=== PATIENT | male | born 1960 | race Asian ===

== ENCOUNTER 2018-09-04 03:02 | Inpatient (IN) | payer MEDICARE, OTHER, SELFPAY ==
[2018-08-20 09:39] VITALS: BMI 21.5
[2018-09-04] VITALS (15 sets, daily range): BP systolic 101–133; BP diastolic 60–84; PULSE 77–108; RESP 18–24; TEMP 36.8–38.7; O2SAT 95–99; BMI 21.7
--- NOTE | 2018-09-04 03:09 | PCM.HP.STD ---
History of Present Illness The patient is a 58 year old M [] Past Medical History Past Medical History (Chronic Problems): Chronic Problems (Last Reviewed 08/20/18 @ 10:33 by Magdiel Jose DO) CKD (chronic kidney disease), stage V (Chronic) Pulmonary fibrosis (Chronic) Systemic sclerosis (Chronic) Renal failure (Chronic) Raynaud disease (Chronic) Anemia (Chronic) Systemic sclerosis (Chronic) Osteoarthritis (Chronic) Hypokalemia (Chronic) HTN (hypertension) (Chronic) Generalized edema (Chronic) CKD (chronic kidney disease), stage V (Chronic) Anemia (Chronic) Alcohol abuse (Chronic) Acute renal failure syndrome (Chronic) Medical History: Medical History (Last Reviewed 08/20/18 @ 10:33 by Magdiel Jose DO) Pulmonary fibrosis (Chronic) J84.10 Systemic sclerosis (Chronic) M34.9 Renal failure (Chronic) N19 Raynaud disease (Chronic) I73.00 Anemia (Chronic) D64.9 Allergies aspirin Allergy (Verified 02/26/18 08:53) Unknown lisinopril Allergy (Verified 02/26/18 08:53) Unknown valsartan Allergy (Verified 02/26/18 08:53) Unknown Home Medications: Ambulatory Orders Medication Instructions Recorded B Complex W-C No.20/Folic Acid 1 mg PO DAILY 07/28/13 [Nephrocaps Softgel] Benzonatate [Tessalon Perle] 200 mg PO TID PRN PRN 07/28/13 Multivitamins,Therapeutic 1 tab PO DAILY 07/28/13 [Multivitamin] Sevelamer Carbonate [Renvela] 800 mg PO DAILY 07/28/13 acetaminophen 325 mg capsule 325 mg PO Q6H PRN 02/26/18 adapalene 0.3 % topical gel 1 applic TOPICAL QPM 02/26/18 albuterol sulfate HFA 90 1 puff INHALATION Q6H PRN 02/26/18 mcg/actuation aerosol inhaler diphenhydramine 25 mg capsule 25 mg PO QHS PRN 02/26/18 lidocaine 2.5 %-prilocaine 2.5% applic TOPICAL 02/26/18 and m.salicy 30 %-menth 10 % top cream pantoprazole 40 mg tablet,delayed 40 mg PO DAILY #90 tab 04/08/18 release nifedipine ER 60 mg 120 mg PO DAILY #180 tab 04/11/18 tablet,extended release guaifenesin ER 600 mg tablet, 600 mg PO Q12H 08/20/18 extended release 12 hr metoprolol tartrate 50 mg tablet 50 mg PO BID #180 tab 08/20/18 Surgical History: no surgical history Smoking Status: Former smoker - Physical Exam Body Mass Index (BMI) 21.5
--- NOTE | 2018-09-04 03:41 | PCM.HP.STD ---
Problem List (1) Community acquired pneumonia Status: Acute History of Present Illness Date of Admission: 09/04/18 Chief Complaint: chills The patient is a 58 year old M with a significant history of scleroderma; end-stage renal disease (dialysis Saturday, and Saturday); and hypertension who presented at [facility] emergency department with chills. Associated with his symptoms is productive cough of green to yellow sputum; and shortness of breath. Further he feels tired. Reportedly his lactic acid at [facility] emergency department was 4.8. Chest x-ray at [facility] emergency department showed small left effusion and/or consolidation. His white blood cell count was elevated as of 15.9. His BUN was 48 and his creatinine was 8.3. Because patient is end-stage renal disease on dialysis and he sees he requested that he come to our hospital. Past Medical History Past Medical History (Chronic Problems): Chronic Problems (Last Reviewed 09/04/18 @ 03:59 by Gio Aponte MD) CKD (chronic kidney disease), stage V (Chronic) Pulmonary fibrosis (Chronic) Systemic sclerosis (Chronic) Renal failure (Chronic) Raynaud disease (Chronic) Anemia (Chronic) Systemic sclerosis (Chronic) Osteoarthritis (Chronic) Hypokalemia (Chronic) HTN (hypertension) (Chronic) Generalized edema (Chronic) CKD (chronic kidney disease), stage V (Chronic) Anemia (Chronic) Alcohol abuse (Chronic) Acute renal failure syndrome (Chronic) Medical History: Medical History (Last Reviewed 09/04/18 @ 05:01 by Gio Aponte MD) Pulmonary fibrosis (Chronic) J84.10 Systemic sclerosis (Chronic) M34.9 Renal failure (Chronic) N19 Raynaud disease (Chronic) I73.00 Anemia (Chronic) D64.9 Allergies aspirin Allergy (Verified 09/04/18 03:33) Itching lisinopril Allergy (Verified 09/04/18 03:33) Itching valsartan Allergy (Verified 09/04/18 03:33) Itching Home Medications: Ambulatory Orders Medication Instructions Recorded Benzonatate [Tessalon Perle] 100 mg PO TID PRN PRN 07/28/13 Sevelamer Carbonate [Renvela] 1,600 mg PO TID 07/28/13 acetaminophen 325 mg capsule 650 mg PO Q6H PRN 08/29/18 adapalene 0.3 % topical gel 1 applic TOPICAL QPM 02/26/18 albuterol sulfate HFA 90 1 puff INHALATION Q6H PRN 02/26/18 mcg/actuation aerosol inhaler nifedipine ER 60 mg 120 mg PO DAILY #180 tab 04/11/18 tablet,extended release Folic Acid/Vit B Complex and C 1 tab PO DAILY 09/04/18 [Renal Vitamin Tablet] Guaifenesin [Mucinex] 600 mg PO DAILY PRN 09/04/18 Metoprolol Tartrate [Lopressor 50 mg PO BID 09/04/18 (beta yenny)] Pantoprazole Sodium 40 mg PO DAILY 09/04/18 Surgical History: - - Dialysis fistula Lives: Spouse/ Significant Other Smoking Status: Former smoker Alcohol: Occasional - *Family History Maternal History Items: - - He denies any paternal or maternal medical history except that he reported that 2 of his brothers had kidney stones. Paternal History Items: - - He denies any paternal or maternal medical history except that he reported that 2 of his brothers had kidney stones. Review of Systems Constitutional: Reports: Chills, Fatigue. Denies: Weight Change HEENT: Denies: Head Aches, Sinus Congestion, Sinus Drainage Cardiovascular: Denies: Chest Pain, Palpitations Respiratory: Reports: Cough, Shortness of Breath, Sputum production Gastrointestinal: Denies: Abdominal Pain, Nausea, Vomiting Genitourinary: Denies: Dysuria Musculoskeletal: Denies: Joint Pain, Joint Tenderness Skin: Denies: Rash, Wounds Neurological: Denies: Numbness, Tingling, Focal weakness Psychiatric: Denies: Anxiety, Depression, Homicidal Ideations, Suicidal Ideations Hematologic/ Lymphatic: Denies: Easy Bruising, Easy Bleeding VTE Information - Inpt Only VTE Present on Admission: No VTE Mechan Device Prophylaxis: None VTE Pharm Prophylaxis ordered?: Yes Patient Problems: Active and Suspected Problems (Last Reviewed 09/04/18 @ 03:59 by Gio Aponte MD) Community acquired pneumonia (Acute) - Physical Exam General: Alert, Oriented x3, Cooperative HEENT: Atraumatic, PERRLA, EOMI, Normocephalic Neck: Supple, No JVD, Negative Carotid Bruits Lungs: Clear to auscultation, Normal air movement Cardiovascular: Regular rate, No murmurs Abdomen: Bowel Sounds Present, Soft, Non Tender Extremities: No edema, Capillary Refill Less than 3 Seconds, - - Dialysis fistula on right arm Skin: No rashes, No breakdown Musculoskeletal: No Tenderness to Palpation of Joints or Extremities Neurological: Neuro grossly intact Psych/Mental Status: Normal Affect, Appropriate Vital Signs Temp Pulse Resp BP Pulse Ox 99.0 F 82 24 H 101/60 95 09/04/18 03:17 09/04/18 03:17 09/04/18 03:17 09/04/18 03:17 09/04/18 03:17 Oxygen Delivery Method Room Air Weight: 53.8 kg Body Mass Index (BMI) 21.7 Assessment/Plan All Active Problems (Last Reviewed 09/04/18 @ 03:59 by Gio Aponte MD) Community acquired pneumonia (Acute) The patient is a 58 year old M with a significant history of scleroderma; end-stage renal disease (dialysis Saturday, and Saturday); and hypertension who presented at [facility] emergency department with chills; and was found to have a fever of 40.2 Celsius (104.36 Fahrenheit) leukocytosis of 15.9; tachypnea with respiratory rate 24-26 and lactic acid of 4.8 and with radiographic evidence of small left effusion/consolidation consistent with probable septic shock secondary to community-acquired pneumonia. Septic shock Patient meets SIRS criteria with a white count of 15.9 and a temperature of 40.2; and respiratory rate of 24-26. Lactic acid: 4.8 RR ~24-26 While his lactic acid of more than 4 he qualifies for a diagnosis of septic shock. However, it is probable that his elevated lactic acid is from poor clearance as patient has end-stage renal disease and is on dialysis (Saturday, , and Saturday.) Blood culture was obtained at [facility]. Consider checking for results from [facility] emergency department. Chest x-ray: At [facility] emergency department it showed left effusion/consolidation. Respiratory Gram stain and culture ordered. Antibiotics : Received azithromycin and ceftriaxone at [facility] emergency department on 09/04/2018. We will continue azithromycin and ceftriaxone. IV hydration: Received LR 500 MLS bolus at the ED. Will hold off further fluids because patient is a dialysis patient and his lactic acid may be from poor clearance. Albuterol as needed Legionella antigen screen and Strep antigen ordered. Trend CBC and BMP End-stage renal disease Patient is on dialysis Tuesdays, on Saturday Renal diet Sevelamer continued. Consult nephrology. Hypertension On presentation his blood pressure was within goal Nifedipine and metoprolol continued Trend blood pressure and adjust blood pressure medications. DVT prophylaxis Subcutaneous heparin. Miscellaneous: Reports drinking 2 glasses of wine about 3 times per week. If patient is not minimizing this will not be classified as alcoholism. Code Visit Inpatient E&M: 05791 Init Hosp L3
--- NOTE | 2018-09-04 03:44 | HP.PCM_ITS ---
Problem List (1) Community acquired pneumonia Status: Acute History of Present Illness Date of Admission: 09/04/18 Chief Complaint: chills The patient is a 58 year old M with a significant history of scleroderma; end- stage renal disease (dialysis Saturday, and Saturday); and hypertension who presented at [facility] department with chills. Associated with his symptoms is productive cough of green to yellow sputum; and shortness of breath. Further he feels tired. Reportedly his lactic acid at [facility] emergency department was 4.8. Chest x-ray at [facility] emergency department showed small left effusion and/or consolidation. His white blood cell count was elevated as of 15.9. His BUN was 48 and his creatinine was 8.3. Because patient is end-stage renal disease on dialysis and he sees he requested that he come to our hospital. Past Medical History Past Medical History (Chronic Problems): Chronic Problems (Last Reviewed 09/04/18 @ 03:59 by Gio Aponte MD) CKD (chronic kidney disease), stage V (Chronic) Pulmonary fibrosis (Chronic) Systemic sclerosis (Chronic) Renal failure (Chronic) Raynaud disease (Chronic) Anemia (Chronic) Systemic sclerosis (Chronic) Osteoarthritis (Chronic) Hypokalemia (Chronic) HTN (hypertension) (Chronic) Generalized edema (Chronic) CKD (chronic kidney disease), stage V (Chronic) Anemia (Chronic) Alcohol abuse (Chronic) Acute renal failure syndrome (Chronic) Medical History: Medical History (Last Reviewed 09/04/18 @ 05:01 by Gio Aponte MD) Pulmonary fibrosis (Chronic) J84.10 Systemic sclerosis (Chronic) M34.9 Renal failure (Chronic) N19 Raynaud disease (Chronic) I73.00 Anemia (Chronic) D64.9 Allergies aspirin Allergy (Verified 09/04/18 03:33) Itching lisinopril Allergy (Verified 09/04/18 03:33) Itching valsartan Allergy (Verified 09/04/18 03:33) Itching Home Medications: Ambulatory Orders Medication Instructions Recorded Benzonatate [Tessalon Perle] 100 mg PO TID PRN PRN 07/28/13 Sevelamer Carbonate [Renvela] 1,600 mg PO TID 07/28/13 acetaminophen 325 mg capsule 650 mg PO Q6H PRN 08/29/18 adapalene 0.3 % topical gel 1 applic TOPICAL QPM 02/26/18 albuterol sulfate HFA 90 1 puff INHALATION Q6H PRN 02/26/18 mcg/actuation aerosol inhaler nifedipine ER 60 mg 120 mg PO DAILY #180 tab 04/11/18 tablet,extended release Folic Acid/Vit B Complex and C 1 tab PO DAILY 09/04/18 [Renal Vitamin Tablet] Guaifenesin [Mucinex] 600 mg PO DAILY PRN 09/04/18 Metoprolol Tartrate [Lopressor 50 mg PO BID 09/04/18 (beta yenny)] Pantoprazole Sodium 40 mg PO DAILY 09/04/18 Surgical History: - - Dialysis fistula Lives: Spouse/ Significant Other Smoking Status: Former smoker Alcohol: Occasional - *Family History Maternal History Items: - - He denies any paternal or maternal medical history except that he reported that 2 of his brothers had kidney stones. Paternal History Items: - - He denies any paternal or maternal medical history except that he reported that 2 of his brothers had kidney stones. Review of Systems Constitutional: Reports: Chills, Fatigue. Denies: Weight Change HEENT: Denies: Head Aches, Sinus Congestion, Sinus Drainage Cardiovascular: Denies: Chest Pain, Palpitations Respiratory: Reports: Cough, Shortness of Breath, Sputum production Gastrointestinal: Denies: Abdominal Pain, Nausea, Vomiting Genitourinary: Denies: Dysuria Musculoskeletal: Denies: Joint Pain, Joint Tenderness Skin: Denies: Rash, Wounds Neurological: Denies: Numbness, Tingling, Focal weakness Psychiatric: Denies: Anxiety, Depression, Homicidal Ideations, Suicidal Ideations Hematologic/ Lymphatic: Denies: Easy Bruising, Easy Bleeding VTE Information - Inpt Only VTE Present on Admission: No VTE Mechan Device Prophylaxis: None VTE Pharm Prophylaxis ordered?: Yes Patient Problems: Active and Suspected Problems (Last Reviewed 09/04/18 @ 03:59 by Gio Aponte MD) Community acquired pneumonia (Acute) - Physical Exam General: Alert, Oriented x3, Cooperative HEENT: Atraumatic, PERRLA, EOMI, Normocephalic Neck: Supple, No JVD, Negative Carotid Bruits Lungs: Clear to auscultation, Normal air movement Cardiovascular: Regular rate, No murmurs Abdomen: Bowel Sounds Present, Soft, Non Tender Extremities: No edema, Capillary Refill Less than 3 Seconds, - - Dialysis fistula on right arm Skin: No rashes, No breakdown Musculoskeletal: No Tenderness to Palpation of Joints or Extremities Neurological: Neuro grossly intact Psych/Mental Status: Normal Affect, Appropriate Vital Signs Temp Pulse Resp BP Pulse Ox 99.0 F 82 24 H 101/60 95 09/04/18 03:17 09/04/18 03:17 09/04/18 03:17 09/04/18 03:17 09/04/18 03:17 Oxygen Delivery Method Room Air Weight: 53.8 kg Body Mass Index (BMI) 21.7 Assessment/Plan All Active Problems (Last Reviewed 09/04/18 @ 03:59 by Gio Aponte MD) Community acquired pneumonia (Acute) The patient is a 58 year old M with a significant history of scleroderma; end- stage renal disease (dialysis Saturday, and Saturday); and hypertension who presented at [facility] department with chills; and was found to have a fever of 40.2 Celsius (104.36 Fahrenheit) leukocytosis of 15.9; tachypnea with respiratory rate 24-26 and lactic acid of 4.8 and with radiographic evidence of small left effusion/consolidation consistent with probable septic shock secondary to community-acquired pneumonia. Septic shock Patient meets SIRS criteria with a white count of 15.9 and a temperature of 40.2; and respiratory rate of 24-26. Lactic acid: 4.8 RR ~24-26 While his lactic acid of more than 4 he qualifies for a diagnosis of septic shock. However, it is probable that his elevated lactic acid is from poor clearance as patient has end-stage renal disease and is on dialysis (Saturday, , and Saturday.) Blood culture was obtained at [facility]. Consider checking for results from [facility] emergency department. Chest x-ray: At [facility] emergency department it showed left effusion/consolidation. Respiratory Gram stain and culture ordered. Antibiotics : Received azithromycin and ceftriaxone at [facility] emergency department on 09/04/2018. We will continue azithromycin and ceftriaxone. IV hydration: Received LR 500 MLS bolus at the ED. Will hold off further fluids because patient is a dialysis patient and his lactic acid may be from poor clearance. Albuterol as needed Legionella antigen screen and Strep antigen ordered. Trend CBC and BMP End-stage renal disease Patient is on dialysis Tuesdays, on Saturday Renal diet Sevelamer continued. Consult nephrology. Hypertension On presentation his blood pressure was within goal Nifedipine and metoprolol continued Trend blood pressure and adjust blood pressure medications. DVT prophylaxis Subcutaneous heparin. Miscellaneous: Reports drinking 2 glasses of wine about 3 times per week. If patient is not minimizing this will not be classified as alcoholism. Code Visit Inpatient E&M: 08165 Init Hosp L3
[2018-09-04 05:36] LABS: Absolute Lymphocyte Count 0.86 X10^3/ul (0.83-4.51); Absolute Neutrophil Count 13.7 X10^3/uL (2.0-7.7); Basophil# 0.02 X10^3/uL; Basophil% 0.1 % (0-1); Differential Indicated SCAN CRITERIA MET; Eosinophil# 0.01 X10^3/uL; Eosinophils% 0.1 % (0-5); Hematocrit 29.6 % (40-54); Hemoglobin 9.3 g/dl (13.0-16.5); Lactic Acid 0.9 mmol/L (0.4-2.0); Lymphocyte # 0.86 X10^3/ul (4.0); Lymphocyte % 5.2 % (19-41); Mean Corp Hgb Conc 31.4 g/gl (32-36); Mean Corpuscular Hgb 29.7 pg (27.0-32.0); Mean Corpuscular Volume 94.6 fL (80-94); Mean Platelet Vol. 11.4 fl (6.2-12.0); Monocyte# 1.87 X10^3/uL; Monocyte% 11.2 % (0-10); Neutrophil # 13.72 X10^3/uL (2.7-7.7); Neutrophil % 82.3 % (47-70); POSITIVE COUNT NO; POSITIVE DIFFERENTIAL YES; POSITIVE MORPHOLOGY YES; Platelet Count 128 K/mm3 (150-450); RBC Distribution Width CV 16.8 % (11.6-14.6); RBC Distribution Width SD 55.1 fl (35.1-43.9); Red Blood Count 3.13 M/mm3 (4.6-6.2); White Blood Count 16.7 K/mm3 (4.4-11.0)
[2018-09-04] MEDS: Heparin Injection (Vial) 5,000 UNIT/ML VIAL 5000 UNIT SC ×3 (05:52→21:27)
[2018-09-04 05:55] LABS: Anion Gap 11 (5-15); BUN 46 mg/dL (7-18); BUN/Creat Ratio 5.6 RATIO (10-20); Calcium,Total 8.3 mg/dL (8.5-10.1); Chloride 96 mmol/L (98-107); Creatinine, Serum 8.16 mg/dL (0.70-1.30); EST Glomerular Filtration Rate 7 mL/min (>60); Est Glom Filt Rate - Afr Amer 9 mL/min (>60); Estimated Creatinine Clearance 7.51 ml/min; Glucose 115 mg/dL (74-106); Potassium 3.6 mmol/L (3.5-5.1); Sodium Level 137 mmol/L (136-145)
[2018-09-04] MEDS: SEVELAMER CARBONATE 800 MG TABLET 1600 MG PO ×3 (08:58→17:27)
[2018-09-04] MEDS: Pantoprazole Sodium 40 MG Tablet PO (08:59)
[2018-09-04] MEDS: Metoprolol Tartrate 50 MG Tablet PO ×2 (08:59→21:28)
[2018-09-04] MEDS: Folic Acid/Vitamin B Comp W-C 1 Capsule 1 CAP PO ×2 (08:59→15:06)
[2018-09-04] MEDS: NIFEdipine 60 MG Tablet 120 MG PO (08:59)
[2018-09-04] MEDS: guaiFENesin 1,200 MG Tablet 1200 MG PO ×2 (08:59→21:28)
--- NOTE | 2018-09-04 09:13 | PCA ---
called dialysis to let them know that this patient is here at hospital. They are aware that he needs dialysis today.
--- NOTE | 2018-09-04 09:28 | DCINST_ITS ---
- Discharge Diagnoses Current Active Problems: Current Active and Chronic Problems (Last Reviewed 09/04/18 @ 05:01 by Gio Aponte MD) Community acquired pneumonia (Acute) Reason(s) for Visit for Discharge Instructions: Fever, chills, cough You will use the following diet at home:: Renal (restricted protein/sodium) Your food should be the consistency of: Regular Your liquids should be the consistency of: Regular/Thin Discharge Activity: Return to Normal Activity Allergies/Adverse Reactions: Allergies aspirin Allergy (Verified 09/04/18 03:33) Itching lisinopril Allergy (Verified 09/04/18 03:33) Itching valsartan Allergy (Verified 09/04/18 03:33) Itching Medications to take at Discharge Benzonatate [Tessalon Perle] 100 mg PO TID PRN PRN 07/28/13 Sevelamer Carbonate [Renvela] 1,600 mg PO TID 07/28/13 acetaminophen 325 mg capsule 650 mg PO Q6H PRN 02/26/18 adapalene 0.3 % topical gel 1 applic TOPICAL QPM 02/26/18 albuterol sulfate HFA 90 mcg/actuation aerosol inhaler 1 puff INHALATION Q6H PRN 02/26/18 nifedipine ER 60 mg tablet,extended release 120 mg PO DAILY #180 tab 04/11/18 Amox/Clavulanate Tablet [Augmentin Tablet] 875 mg PO Q12H #10 tablet 09/04/18 Folic Acid/Vit B Complex and C [Renal Vitamin Tablet] 1 tab PO DAILY 09/04/18 Guaifenesin [Mucinex] 600 mg PO DAILY PRN 09/04/18 Metoprolol Tartrate [Lopressor (beta yenny)] 50 mg PO BID 09/04/18 Nepro Liquid [Nepro Carb Steady] 120 ml PO 4X/DAY #100 liquid 09/04/18 Pantoprazole Sodium 40 mg PO DAILY 09/04/18 The following prescriptions were given: Amox/Clavulanate Tablet [Augmentin Tablet] 875 mg PO Q12H #10 tablet Nepro Liquid [Nepro Carb Steady] 120 ml PO 4X/DAY #100 liquid Primary Care Physician: Magdiel Jose DO [Primary Care Provider] - Please follow up with your Primary Care Physician in: within 1-2 weeks of discharge Test Results: Test results from this visit will be discussed in further detail at your follow- up appointment, if applicable. Please Follow Up With: Ashley Gross MD When: as scheduled for dialysis Proposed Discharge Date: 09/04/18
--- NOTE | 2018-09-04 09:28 | DS.PCM_ITS ---
Discharge Date and Diagnosis - Problem List Patient Problems: Active and Suspected Problems (Last Reviewed 09/04/18 @ 05:01 by Gio Aponte MD) Community acquired pneumonia (Acute) Date of Admission: 09/04/18 Date of Discharge: 09/04/18 - Primary Discharge Diagnosis Active and Suspected Problems (Last Reviewed 09/04/18 @ 05:01 by Gio Aponte MD) Community acquired pneumonia (Acute) Septic shock Lactic acidosis - Secondary Discharge Diagnosis Chronic Problems (Last Reviewed 09/04/18 @ 05:01 by Gio Aponte MD) CKD (chronic kidney disease), stage V (Chronic) Pulmonary fibrosis (Chronic) Systemic sclerosis (Chronic) Renal failure (Chronic) Raynaud disease (Chronic) Anemia (Chronic) Systemic sclerosis (Chronic) Osteoarthritis (Chronic) Hypokalemia (Chronic) HTN (hypertension) (Chronic) Generalized edema (Chronic) CKD (chronic kidney disease), stage V (Chronic) Anemia (Chronic) Alcohol abuse (Chronic) Acute renal failure syndrome (Chronic) Hospital Course and Treatment Nephrology Operations: None Procedures: None Summary of Care Provided: The patient is a 58 year old M [] Patient Problems: Active and Suspected Problems (Last Reviewed 09/04/18 @ 05:01 by Gio Aponte MD) Community acquired pneumonia (Acute) Subjective: On the day of discharge, patient was seen and examined. - Physical Exam Vital Signs Temp Pulse Resp BP Pulse Ox 98.3 F 84 18 123/77 H 96 09/04/18 08:55 09/04/18 08:59 09/04/18 08:55 09/04/18 08:59 09/04/18 08:55 Oxygen Delivery Method Room Air Weight: 53.8 kg Body Mass Index (BMI) 21.7 Microbiology Past 72 Hours 09/04/18 05:05 Influenza Types A,B Direct FA (SAKINA) - Final Mucosa - Nasopharyngeal Laboratory Tests Past 24 Hrs 09/04/18 09/04/18 09/04/18 05:04 05:04 05:04 WBC 16.7 H RBC 3.13 L Hgb 9.3 L Hct 29.6 L MCV 94.6 H MCH 29.7 MCHC 31.4 L RDW 16.8 H RDW Differential 55.1 H Plt Count 128 L MPV 11.4 Immature Gran % (Auto) 1.100 H Neut % (Auto) 82.3 H Lymph % (Auto) 5.2 L [place] % (Auto) 11.2 H Eos % (Auto) 0.1 Baso % (Auto) 0.1 Absolute Neuts (auto) 13.7 H Absolute Lymphs (auto) 0.86 Total Counted Not Reportable Diff Path Review May foll Sodium 137 Potassium 3.6 Chloride 96 L Carbon Dioxide 30.0 Anion Gap 11 BUN 46 H Creatinine 8.16 H* Estim Creat Clear Calc 7.51 Est GFR (MDRD) Af Amer 9 L Est GFR (MDRD) Non-Af 7 L BUN/Creatinine Ratio 5.6 L Glucose 115 H Lactic Acid 0.9 Calcium 8.3 L Discharge Activity: Return to Normal Activity Home Medications: Medications to take at Discharge Benzonatate [Tessalon Perle] 100 mg PO TID PRN PRN 07/28/13 Sevelamer Carbonate [Renvela] 1,600 mg PO TID 07/28/13 acetaminophen 325 mg capsule 650 mg PO Q6H PRN 02/26/18 adapalene 0.3 % topical gel 1 applic TOPICAL QPM 02/26/18 albuterol sulfate HFA 90 mcg/actuation aerosol inhaler 1 puff INHALATION Q6H PRN 02/26/18 nifedipine ER 60 mg tablet,extended release 120 mg PO DAILY #180 tab 04/11/18 Amox/Clavulanate Tablet [Augmentin Tablet] 500 mg PO DAILY #7 tablet 09/04/18 Folic Acid/Vit B Complex and C [Renal Vitamin Tablet] 1 tab PO DAILY 09/04/18 Guaifenesin [Mucinex] 600 mg PO DAILY PRN 09/04/18 Metoprolol Tartrate [Lopressor (beta yenny)] 50 mg PO BID 09/04/18 Nepro Liquid [Nepro Carb Steady] 120 ml PO 4X/DAY #100 liquid 09/04/18 Pantoprazole Sodium 40 mg PO DAILY 09/04/18 Following Prescrptions Were Given to Patient: Amox/Clavulanate Tablet [Augmentin Tablet] 500 mg PO DAILY #7 tablet Nepro Liquid [Nepro Carb Steady] 120 ml PO 4X/DAY #100 liquid Primary Care Physician: Magdiel Jose DO [Primary Care Provider] - Please follow up with your Primary Care Physician in: within 1-2 weeks of discharge Please Follow Up With: Ashley Gross MD When: as scheduled for dialysis Medical Necessity - Tobacco Use Smoking Status: Former smoker
--- NOTE | 2018-09-04 10:25 | CASEMGMT ---
RN CM Face to Face with patient for initial transition planning/care coordination assessment. RN CM introduced self and role at [facility] [place]. Patient lying in bed, alert and oriented. Patient willing to participate in assessment and is able to answer all questions appropriately. Care providers, pharmacy, and demographics verified. Patient wishes to discharge home, denies need for home health at this time. Patient states he has no further needs or concerns at this time. CM to follow for discharge planning needs that may arise. PCP: Magdiel Jose Specialists: Patient states he see heart, lung, and kidney doctor but does not know names. Preferred Pharmacy: [facility] [place] Insurance: [facility], [employer] Prescription Benefit: yes Living Will/HPOA: None LNOK: Living Arrangements: Patient lives with in duplex. States he is independent at home. Transportation: self/ DME/HHC: Denies any DME or previous SNF. Attend HD at [facility] TTS 620am Disposition Plan: Patient to discharge home with family support and follow-up plans in place. Ananya DENNIS, RN, CM
[2018-09-04 13:45] LABS: Pathologist Review Reviewed
[2018-09-04] MEDS: Calcitriol 0.25 MCG Capsule 0.5 MCG PO (15:06)
--- NOTE | 2018-09-04 15:20 | PCM.CONS.R ---
Problem List (1) ESRD (end stage renal disease) on dialysis Status: Acute Consultation - Renal 09/04/18 PCP/ Referring MD: Requesting physician: Dr Daley Primary care physician: Magdiel Jose DO Reason for Consultation:: ESRD - History of Present Illness History of Present Illness: The patient is a 58 year old M well known to us. ESRD on HD TTS schedule. came to hospital with fever, chills, malaise. He went to [facility] in [place], work up there showed possible left sided infiltrate vs effusion. transferred here for further care. seen on dialysis today. - Allergies Allergies: Allergies aspirin Allergy (Verified 09/04/18 03:33) Itching lisinopril Allergy (Verified 09/04/18 03:33) Itching valsartan Allergy (Verified 09/04/18 03:33) Itching - Current Medications Current Medications: Current Medications Acetaminophen (Tylenol) 650 mg PO Q6H PRN PRN PRN Reason: PAIN Adapalene (Differin) 1 gm TP QPM [facility] Albuterol Sulfate (Ventolin Aerosols) 2.5 mg INHALATION Q2H PRN PRN PRN Reason: SHORTNESS OF BREATH Benzonatate (Tessalon Perle) 100 mg PO TID PRN PRN PRN Reason: FREQUENT COUGH Guaifenesin (Mucinex) 1,200 mg PO BID [facility] Last Admin: 09/04/18 08:59 Dose: 1,200 mg Heparin Sodium (Porcine) (Heparin Na) 5,000 unit SC Q8 [facility] Last Admin: 09/04/18 15:06 Dose: 5,000 unit Azithromycin 500 mg/ Dextrose 255 mls @ 250 mls/hr IV Q24@2200 [facility] Stop: 09/06/18 23:02 Ceftriaxone Sodium (Rocephin) 1 gm in 50 mls @ 100 mls/hr IV Q24@2200 [facility] Magnesium Hydroxide (Milk Of Magnesia) 30 ml PO DAILY PRN PRN PRN Reason: Constipation Metoprolol Tartrate (Lopressor (Beta Cary)) 50 mg PO BID [facility] Last Admin: 09/04/18 08:59 Dose: 50 mg Multivit/Ca Carb/B Cmplx/FA/Prenat (Nephrocaps, Renaphro) 1 capsule PO DAILY [facility] Last Admin: 09/04/18 15:06 Dose: 1 capsule Nifedipine (Procardia Xl) 120 mg PO DAILY [facility] Last Admin: 09/04/18 08:59 Dose: 120 mg Nutritional Formula (Nepro Carb Steady) 120 ml PO 4X/DAY [facility] Last Admin: 09/04/18 15:07 Dose: Not Given Ondansetron HCl (Zofran) 4 mg IV Q8H PRN PRN PRN Reason: NAUSEA Pantoprazole Sodium (Protonix) 40 mg PO DAILY [facility] Last Admin: 09/04/18 08:59 Dose: 40 mg Sevelamer Carbonate (Renvela) 1,600 mg PO TIDCM [facility] Last Admin: 09/04/18 12:07 Dose: 1,600 mg Sodium Chloride () 5 - 15 ml IV UD PRN PRN Reason: SALINE FLUSH - Past Medical History Past Medical History (Chronic Problems): Chronic Problems (Last Reviewed 09/04/18 @ 05:01 by Gio Aponte MD) CKD (chronic kidney disease), stage V (Chronic) Pulmonary fibrosis (Chronic) Systemic sclerosis (Chronic) Renal failure (Chronic) Raynaud disease (Chronic) Anemia (Chronic) Systemic sclerosis (Chronic) Osteoarthritis (Chronic) Hypokalemia (Chronic) HTN (hypertension) (Chronic) Generalized edema (Chronic) CKD (chronic kidney disease), stage V (Chronic) Anemia (Chronic) Alcohol abuse (Chronic) Acute renal failure syndrome (Chronic) - Past Surgical History Surgical History: - - Dialysis fistula - Social History Smoking Status: Former smoker Alcohol: Occasional - Family History Maternal History Items: - - He denies any paternal or maternal medical history except that he reported that 2 of his brothers had kidney stones. Paternal History Items: - - He denies any paternal or maternal medical history except that he reported that 2 of his brothers had kidney stones. Review of Systems Constitutional: Denies: Chills, Fever, Weight Change HEENT: Denies: Head Aches, Sinus Congestion, Sinus Drainage Cardiovascular: Denies: Chest Pain, Palpitations Respiratory: Denies: Cough, Shortness of breath at rest, Sputum production Gastrointestinal: Denies: Abdominal Pain, Nausea, Vomiting Genitourinary: Denies: Dysuria Musculoskeletal: Denies: Joint Pain, Joint Tenderness Skin: Denies: Rash, Wounds Neurological: Denies: Numbness, Tingling, Focal weakness Psychiatric: Denies: Anxiety, Depression, Homicidal Ideations, Suicidal Ideations Hematologic/ Lymphatic: Denies: Easy Bruising, Easy Bleeding Patient Problems: Active and Suspected Problems (Last Reviewed 09/04/18 @ 05:01 by Gio Aponte MD) Community acquired pneumonia (Acute) ESRD (end stage renal disease) on dialysis (Acute) - Physical Exam General: Alert, Oriented x3, Cooperative HEENT: Atraumatic, PERRLA, EOMI, Normocephalic Neck: Supple, No JVD, Negative Carotid Bruits Lungs: Clear to auscultation, Normal air movement Cardiovascular: Regular rate, No murmurs Abdomen: Bowel Sounds Present, Soft, Non Tender Extremities: No edema, Capillary Refill Less than 3 Seconds Skin: No rashes, No breakdown Musculoskeletal: No Tenderness to Palpation of Joints or Extremities Neurological: Cranial nerves II-XII grossly intact Psych/Mental Status: Normal Affect, Appropriate Vital Signs Temp Pulse Resp BP Pulse Ox 99.5 F H 88 20 H 130/83 H 97 09/04/18 14:00 09/04/18 14:00 09/04/18 14:00 09/04/18 14:00 09/04/18 14:00 Oxygen Flow Rate (L/min) 2 Oxygen Delivery Method Nasal Cannula Weight: 53.8 kg Body Mass Index (BMI) 21.7 Intake and Output for Last 24 Hours 09/02/18 09/03/18 09/04/18 23:59 23:59 23:59 Intake Total 420 / 420 Output Total 60 / 60 Balance 360 / 360 Microbiology Past 72 Hours 09/04/18 09:10 Gram Stain - Final Sputum, Expectorated/Coughed 09/04/18 09:10 Streptococcus pneumoniae Antigen (M - Final Urine, Clean Catch 09/04/18 09:10 Legionella Antigen - Final Urine, Clean Catch 09/04/18 05:05 Influenza Types A,B Direct FA (SAKINA) - Final Mucosa - Nasopharyngeal Laboratory Tests Past 24 Hrs 09/04/18 09/04/18 09/04/18 05:04 05:04 05:04 WBC 16.7 H RBC 3.13 L Hgb 9.3 L Hct 29.6 L MCV 94.6 H MCH 29.7 MCHC 31.4 L RDW 16.8 H RDW Differential 55.1 H Plt Count 128 L MPV 11.4 Immature Gran % (Auto) 1.100 H Neut % (Auto) 82.3 H Lymph % (Auto) 5.2 L [place] % (Auto) 11.2 H Eos % (Auto) 0.1 Baso % (Auto) 0.1 Absolute Neuts (auto) 13.7 H Absolute Lymphs (auto) 0.86 Total Counted Not Reportable Diff Path Review Reviewed Sodium 137 Potassium 3.6 Chloride 96 L Carbon Dioxide 30.0 Anion Gap 11 BUN 46 H Creatinine 8.16 H* Estim Creat Clear Calc 7.51 Est GFR (MDRD) Af Amer 9 L Est GFR (MDRD) Non-Af 7 L BUN/Creatinine Ratio 5.6 L Glucose 115 H Lactic Acid 0.9 Calcium 8.3 L Assessment/Plan All Active Problems (Last Reviewed 09/04/18 @ 05:01 by Gio Aponte MD) Community acquired pneumonia (Acute) ESRD (end stage renal disease) on dialysis (Acute) ESRD. seen on dialysis today. see orders/ flowsheets Sepsis. likely related to pneumonia. CXR done at [place] apparently showed left sided pneumonia. on abx as per primary service d/w Dr Daley
--- NOTE | 2018-09-04 15:25 | CON.PCM_ITS ---
Problem List (1) ESRD (end stage renal disease) on dialysis Status: Acute Consultation - Renal 09/04/18 PCP/ Referring MD: Requesting physician: Dr Daley Primary care physician: Magdiel Jose DO Reason for Consultation:: ESRD - History of Present Illness History of Present Illness: The patient is a 58 year old M well known to us. ESRD on HD TTS schedule. came to hospital with fever, chills, malaise. He went to [facility] in [place], work up there showed possible left sided infiltrate vs effusion. transferred here for further care. seen on dialysis today. - Allergies Allergies: Allergies aspirin Allergy (Verified 09/04/18 03:33) Itching lisinopril Allergy (Verified 09/04/18 03:33) Itching valsartan Allergy (Verified 09/04/18 03:33) Itching - Current Medications Current Medications: Current Medications Acetaminophen (Tylenol) 650 mg PO Q6H PRN PRN PRN Reason: PAIN Adapalene (Differin) 1 gm TP QPM [facility] Albuterol Sulfate (Ventolin Aerosols) 2.5 mg INHALATION Q2H PRN PRN PRN Reason: SHORTNESS OF BREATH Benzonatate (Tessalon Perle) 100 mg PO TID PRN PRN PRN Reason: FREQUENT COUGH Guaifenesin (Mucinex) 1,200 mg PO BID [facility] Last Admin: 09/04/18 08:59 Dose: 1,200 mg Heparin Sodium (Porcine) (Heparin Na) 5,000 unit SC Q8 [facility] Last Admin: 09/04/18 15:06 Dose: 5,000 unit Azithromycin 500 mg/ Dextrose 255 mls @ 250 mls/hr IV Q24@2200 [facility] Stop: 09/06/18 23:02 Ceftriaxone Sodium (Rocephin) 1 gm in 50 mls @ 100 mls/hr IV Q24@2200 [facility] Magnesium Hydroxide (Milk Of Magnesia) 30 ml PO DAILY PRN PRN PRN Reason: Constipation Metoprolol Tartrate (Lopressor (Beta Cary)) 50 mg PO BID [facility] Last Admin: 09/04/18 08:59 Dose: 50 mg Multivit/Ca Carb/B Cmplx/FA/Prenat (Nephrocaps, Renaphro) 1 capsule PO DAILY [facility] Last Admin: 09/04/18 15:06 Dose: 1 capsule Nifedipine (Procardia Xl) 120 mg PO DAILY [facility] Last Admin: 09/04/18 08:59 Dose: 120 mg Nutritional Formula (Nepro Carb Steady) 120 ml PO 4X/DAY [facility] Last Admin: 09/04/18 15:07 Dose: Not Given Ondansetron HCl (Zofran) 4 mg IV Q8H PRN PRN PRN Reason: NAUSEA Pantoprazole Sodium (Protonix) 40 mg PO DAILY [facility] Last Admin: 09/04/18 08:59 Dose: 40 mg Sevelamer Carbonate (Renvela) 1,600 mg PO TIDCM [facility] Last Admin: 09/04/18 12:07 Dose: 1,600 mg Sodium Chloride () 5 - 15 ml IV UD PRN PRN Reason: SALINE FLUSH - Past Medical History Past Medical History (Chronic Problems): Chronic Problems (Last Reviewed 09/04/18 @ 05:01 by Gio Aponte MD) CKD (chronic kidney disease), stage V (Chronic) Pulmonary fibrosis (Chronic) Systemic sclerosis (Chronic) Renal failure (Chronic) Raynaud disease (Chronic) Anemia (Chronic) Systemic sclerosis (Chronic) Osteoarthritis (Chronic) Hypokalemia (Chronic) HTN (hypertension) (Chronic) Generalized edema (Chronic) CKD (chronic kidney disease), stage V (Chronic) Anemia (Chronic) Alcohol abuse (Chronic) Acute renal failure syndrome (Chronic) - Past Surgical History Surgical History: - - Dialysis fistula - Social History Smoking Status: Former smoker Alcohol: Occasional - Family History Maternal History Items: - - He denies any paternal or maternal medical history except that he reported that 2 of his brothers had kidney stones. Paternal History Items: - - He denies any paternal or maternal medical history except that he reported that 2 of his brothers had kidney stones. Review of Systems Constitutional: Denies: Chills, Fever, Weight Change HEENT: Denies: Head Aches, Sinus Congestion, Sinus Drainage Cardiovascular: Denies: Chest Pain, Palpitations Respiratory: Denies: Cough, Shortness of breath at rest, Sputum production Gastrointestinal: Denies: Abdominal Pain, Nausea, Vomiting Genitourinary: Denies: Dysuria Musculoskeletal: Denies: Joint Pain, Joint Tenderness Skin: Denies: Rash, Wounds Neurological: Denies: Numbness, Tingling, Focal weakness Psychiatric: Denies: Anxiety, Depression, Homicidal Ideations, Suicidal Ideations Hematologic/ Lymphatic: Denies: Easy Bruising, Easy Bleeding Patient Problems: Active and Suspected Problems (Last Reviewed 09/04/18 @ 05:01 by Gio Aponte MD) Community acquired pneumonia (Acute) ESRD (end stage renal disease) on dialysis (Acute) - Physical Exam General: Alert, Oriented x3, Cooperative HEENT: Atraumatic, PERRLA, EOMI, Normocephalic Neck: Supple, No JVD, Negative Carotid Bruits Lungs: Clear to auscultation, Normal air movement Cardiovascular: Regular rate, No murmurs Abdomen: Bowel Sounds Present, Soft, Non Tender Extremities: No edema, Capillary Refill Less than 3 Seconds Skin: No rashes, No breakdown Musculoskeletal: No Tenderness to Palpation of Joints or Extremities Neurological: Cranial nerves II-XII grossly intact Psych/Mental Status: Normal Affect, Appropriate Vital Signs Temp Pulse Resp BP Pulse Ox 99.5 F H 88 20 H 130/83 H 97 09/04/18 14:00 09/04/18 14:00 09/04/18 14:00 09/04/18 14:00 09/04/18 14:00 Oxygen Flow Rate (L/min) 2 Oxygen Delivery Method Nasal Cannula Weight: 53.8 kg Body Mass Index (BMI) 21.7 Intake and Output for Last 24 Hours 09/02/18 09/03/18 09/04/18 23:59 23:59 23:59 Intake Total 420 / 420 Output Total 60 / 60 Balance 360 / 360 Microbiology Past 72 Hours 09/04/18 09:10 Gram Stain - Final Sputum, Expectorated/Coughed 09/04/18 09:10 Streptococcus pneumoniae Antigen (M - Final Urine, Clean Catch 09/04/18 09:10 Legionella Antigen - Final Urine, Clean Catch 09/04/18 05:05 Influenza Types A,B Direct FA (SAKINA) - Final Mucosa - Nasopharyngeal Laboratory Tests Past 24 Hrs 09/04/18 09/04/18 09/04/18 05:04 05:04 05:04 WBC 16.7 H RBC 3.13 L Hgb 9.3 L Hct 29.6 L MCV 94.6 H MCH 29.7 MCHC 31.4 L RDW 16.8 H RDW Differential 55.1 H Plt Count 128 L MPV 11.4 Immature Gran % (Auto) 1.100 H Neut % (Auto) 82.3 H Lymph % (Auto) 5.2 L [place] % (Auto) 11.2 H Eos % (Auto) 0.1 Baso % (Auto) 0.1 Absolute Neuts (auto) 13.7 H Absolute Lymphs (auto) 0.86 Total Counted Not Reportable Diff Path Review Reviewed Sodium 137 Potassium 3.6 Chloride 96 L Carbon Dioxide 30.0 Anion Gap 11 BUN 46 H Creatinine 8.16 H* Estim Creat Clear Calc 7.51 Est GFR (MDRD) Af Amer 9 L Est GFR (MDRD) Non-Af 7 L BUN/Creatinine Ratio 5.6 L Glucose 115 H Lactic Acid 0.9 Calcium 8.3 L Assessment/Plan All Active Problems (Last Reviewed 09/04/18 @ 05:01 by Gio Aponte MD) Community acquired pneumonia (Acute) ESRD (end stage renal disease) on dialysis (Acute) ESRD. seen on dialysis today. see orders/ flowsheets Sepsis. likely related to pneumonia. CXR done at [place] apparently showed left sided pneumonia. on abx as per primary service d/w Dr Daley
--- NOTE | 2018-09-04 16:22 | NURSING ---
PT WITH CHILLS/RIGORS. PT RECEIVING DIALYSIS CURRENTLY. DIALYSIS NURSE SPOKE W/DR CARDENAS & STATES HE DOES NOT FEEL THE RIGORS ARE DUE TO DIALYSIS. DR JESUS MADE AWARE OF SAME & NEW ORDERS RECEIVED.
[2018-09-04] MEDS: Acetaminophen 325 MG Tablet 650 MG PO (16:56)
--- NOTE | 2018-09-04 17:13 | EKG12_ITS ---
Test Reason : ARHYTHMIA Blood Pressure : / mmHG Vent. Rate : 087 BPM Atrial Rate : 087 BPM P-R Int : 142 ms QRS Dur : 086 ms QT Int : 396 ms P-R-T Axes : 044 -09 009 degrees QTc Int : 476 ms Normal sinus rhythm Nonspecific ST abnormality Abnormal ECG When compared with ECG of 29-JAN-2013 20:48, ST now depressed in Anterior leads Confirmed by LEI SAMPSON, ALDA ([id number]), newspaper managing editor ALIYA OROURKE ([id number] on 09/12/2018 9:05:48 AM Referred By: EDIN Confirmed By:ALDA ODOM MD
--- NOTE | 2018-09-04 17:14 | PCM.PN.HOSP ---
Patient Problems: Active and Suspected Problems (Last Reviewed 09/04/18 @ 05:01 by Gio Aponte MD) Community acquired pneumonia (Acute) ESRD (end stage renal disease) on dialysis (Acute) Subjective: Patient was seen and examined. No fevers seen overnight. Not on oxygen. Eager to be discharged. Due for dialysis today. Patient's lactic acid is 0.6 this morning. Patient said to be shivering during dialysis. Blood cultures taken. Vitals/I&O's: Vital Signs Temp Pulse Resp BP Pulse Ox 101.7 F H 106 H 20 H 130/77 H 95 09/04/18 16:53 09/04/18 16:53 09/04/18 16:53 09/04/18 16:53 09/04/18 16:53 Oxygen Flow Rate (L/min) 2 Oxygen Delivery Method Nasal Cannula Weight: 53.8 kg Body Mass Index (BMI) 21.7 Intake and Output for Last 24 Hours 09/02/18 09/03/18 09/04/18 23:59 23:59 23:59 Intake Total 420 / 420 Output Total 60 / 60 Balance 360 / 360 General: Alert, Oriented x3, Cooperative, No apparent distress HEENT: Atraumatic, PERRLA, EOMI, Normocephalic Oral: Moist Mucosa Neck: Supple Lungs: Clear to auscultation, Normal air movement Cardiovascular: Regular rate, Regular Rhythm, Normal S1, Normal S2, Murmur Abdomen: Bowel Sounds Present, Soft, Non Tender, Non-Distended Extremities: No edema Skin: No rashes Musculoskeletal: No Tenderness to Palpation of Joints or Extremities Lymphatic: No Cervical, Supraclavicular, or Inguinal Adenopathy Neurological: Cranial nerves II-XII grossly intact, Neuro grossly intact Psych/Mental Status: Normal Affect, Appropriate Microbiology Past 72 Hours 09/04/18 09:10 Sputum, Expectorated/Coughed Gram Stain - Final 09/04/18 09:10 Urine, Clean Catch Streptococcus pneumoniae Antigen (M - Final 09/04/18 09:10 Urine, Clean Catch Legionella Antigen - Final 09/04/18 05:05 Mucosa - Nasopharyngeal Influenza Types A,B Direct FA (SAKINA) - Final Laboratory Results 09/04/18 05:04: Lactic Acid 0.9 09/04/18 05:04: WBC 16.7 H, RBC 3.13 L, Hgb 9.3 L, Hct 29.6 L, MCV 94.6 H, MCH 29.7, MCHC 31.4 L, RDW 16.8 H, RDW Differential 55.1 H, Plt Count 128 L, MPV 11.4, Immature Gran % (Auto) 1.100 H, Neut % (Auto) 82.3 H, Lymph % (Auto) 5.2 L, [place] % (Auto) 11.2 H, Eos % (Auto) 0.1, Baso % (Auto) 0.1, Absolute Neuts (auto) 13.7 H, Absolute Lymphs (auto) 0.86, Total Counted Not Reportable, Diff Path Review Reviewed 09/04/18 05:04: Sodium 137, Potassium 3.6, Chloride 96 L, Carbon Dioxide 30.0, Anion Gap 11, BUN 46 H, Creatinine 8.16 H*, Estim Creat Clear Calc 7.51, Est GFR (MDRD) Af Amer 9 L, Est GFR (MDRD) Non-Af 7 L, BUN/Creatinine Ratio 5.6 L, Glucose 115 H, Calcium 8.3 L Current Medications Acetaminophen (Tylenol) 650 mg PO Q6H PRN PRN PRN Reason: PAIN Last Admin: 09/04/18 16:56 Dose: 650 mg Adapalene (Differin) 1 gm TP QPM [facility] Albuterol Sulfate (Ventolin Aerosols) 2.5 mg INHALATION Q2H PRN PRN PRN Reason: SHORTNESS OF BREATH Benzonatate (Tessalon Perle) 100 mg PO TID PRN PRN PRN Reason: FREQUENT COUGH Guaifenesin (Mucinex) 1,200 mg PO BID [facility] Last Admin: 09/04/18 08:59 Dose: 1,200 mg Heparin Sodium (Porcine) (Heparin Na) 5,000 unit SC Q8 [facility] Last Admin: 09/04/18 15:06 Dose: 5,000 unit Azithromycin 500 mg/ Dextrose 255 mls @ 250 mls/hr IV Q24@2200 [facility] Stop: 09/06/18 23:02 Ceftriaxone Sodium (Rocephin) 1 gm in 50 mls @ 100 mls/hr IV Q24@2200 [facility] Lorazepam (Ativan) 1 mg IV X1 [facility] Stop: 09/04/18 17:14 Magnesium Hydroxide (Milk Of Magnesia) 30 ml PO DAILY PRN PRN PRN Reason: Constipation Metoprolol Tartrate (Lopressor (Beta Cary)) 50 mg PO BID [facility] Last Admin: 09/04/18 08:59 Dose: 50 mg Multivit/Ca Carb/B Cmplx/FA/Prenat (Nephrocaps, Renaphro) 1 capsule PO DAILY [facility] Last Admin: 09/04/18 15:06 Dose: 1 capsule Nifedipine (Procardia Xl) 120 mg PO DAILY [facility] Last Admin: 09/04/18 08:59 Dose: 120 mg Nutritional Formula (Nepro Carb Steady) 120 ml PO 4X/DAY [facility] Last Admin: 09/04/18 15:07 Dose: Not Given Ondansetron HCl (Zofran) 4 mg IV Q8H PRN PRN PRN Reason: NAUSEA Pantoprazole Sodium (Protonix) 40 mg PO DAILY [facility] Last Admin: 09/04/18 08:59 Dose: 40 mg Sevelamer Carbonate (Renvela) 1,600 mg PO TIDCM [facility] Last Admin: 09/04/18 12:07 Dose: 1,600 mg Sodium Chloride () 5 - 15 ml IV UD PRN PRN Reason: SALINE FLUSH Medical Necessity - Tobacco Use Smoking Status: Former smoker Assessment/Plan All Active Problems (Last Reviewed 09/04/18 @ 05:01 by Gio Aponte MD) Community acquired pneumonia (Acute) ESRD (end stage renal disease) on dialysis (Acute) 1. Septic shock/severe sepsis secondary to CAP, lactic acid in [place] was 4.8, resolved remarkably to 0.6 here On IV ceftriaxone/azithromycin, Called [facility], blood cultures taken from ED are pending, will repeat blood cultures here, will continue same 2. Acute diarrhea, will rule out c. diff, will place in contact isolation 3. ESRD on HD, dialysis today, nephrology consulted 4. Hypertension, controlled, will continue to monitor on home regimen 5. H/o sjogren's syndrome, Raynaud's disease 6. DVT PPx - Heparin SC Code Visit Inpatient E&M: 80491 Subs Hosp L2
--- NOTE | 2018-09-04 17:18 | PN_ITS ---
Patient Problems: Active and Suspected Problems (Last Reviewed 09/04/18 @ 05:01 by Gio Aponte MD) Community acquired pneumonia (Acute) ESRD (end stage renal disease) on dialysis (Acute) Subjective: Patient was seen and examined. No fevers seen overnight. Not on oxygen. Eager to be discharged. Due for dialysis today. Patient's lactic acid is 0.6 this morning. Patient said to be shivering during dialysis. Blood cultures taken. Vitals/I&O's: Vital Signs Temp Pulse Resp BP Pulse Ox 101.7 F H 106 H 20 H 130/77 H 95 09/04/18 16:53 09/04/18 16:53 09/04/18 16:53 09/04/18 16:53 09/04/18 16:53 Oxygen Flow Rate (L/min) 2 Oxygen Delivery Method Nasal Cannula Weight: 53.8 kg Body Mass Index (BMI) 21.7 Intake and Output for Last 24 Hours 09/02/18 09/03/18 09/04/18 23:59 23:59 23:59 Intake Total 420 / 420 Output Total 60 / 60 Balance 360 / 360 General: Alert, Oriented x3, Cooperative, No apparent distress HEENT: Atraumatic, PERRLA, EOMI, Normocephalic Oral: Moist Mucosa Neck: Supple Lungs: Clear to auscultation, Normal air movement Cardiovascular: Regular rate, Regular Rhythm, Normal S1, Normal S2, Murmur Abdomen: Bowel Sounds Present, Soft, Non Tender, Non-Distended Extremities: No edema Skin: No rashes Musculoskeletal: No Tenderness to Palpation of Joints or Extremities Lymphatic: No Cervical, Supraclavicular, or Inguinal Adenopathy Neurological: Cranial nerves II-XII grossly intact, Neuro grossly intact Psych/Mental Status: Normal Affect, Appropriate Microbiology Past 72 Hours 09/04/18 09:10 Sputum, Expectorated/Coughed Gram Stain - Final 09/04/18 09:10 Urine, Clean Catch Streptococcus pneumoniae Antigen (M - Final 09/04/18 09:10 Urine, Clean Catch Legionella Antigen - Final 09/04/18 05:05 Mucosa - Nasopharyngeal Influenza Types A,B Direct FA (SAKINA) - Final Laboratory Results 09/04/18 05:04: Lactic Acid 0.9 09/04/18 05:04: WBC 16.7 H, RBC 3.13 L, Hgb 9.3 L, Hct 29.6 L, MCV 94.6 H, MCH 29.7, MCHC 31.4 L, RDW 16.8 H, RDW Differential 55.1 H, Plt Count 128 L, MPV 11.4, Immature Gran % (Auto) 1.100 H, Neut % (Auto) 82.3 H, Lymph % (Auto) 5.2 L , [place] % (Auto) 11.2 H, Eos % (Auto) 0.1, Baso % (Auto) 0.1, Absolute Neuts (auto) 13.7 H, Absolute Lymphs (auto) 0.86, Total Counted Not Reportable, Diff Path Review Reviewed 09/04/18 05:04: Sodium 137, Potassium 3.6, Chloride 96 L, Carbon Dioxide 30.0, Anion Gap 11, BUN 46 H, Creatinine 8.16 H*, Estim Creat Clear Calc 7.51, Est GFR (MDRD) Af Amer 9 L, Est GFR (MDRD) Non-Af 7 L, BUN/Creatinine Ratio 5.6 L, Glucose 115 H, Calcium 8.3 L Current Medications Acetaminophen (Tylenol) 650 mg PO Q6H PRN PRN PRN Reason: PAIN Last Admin: 09/04/18 16:56 Dose: 650 mg Adapalene (Differin) 1 gm TP QPM [facility] Albuterol Sulfate (Ventolin Aerosols) 2.5 mg INHALATION Q2H PRN PRN PRN Reason: SHORTNESS OF BREATH Benzonatate (Tessalon Perle) 100 mg PO TID PRN PRN PRN Reason: FREQUENT COUGH Guaifenesin (Mucinex) 1,200 mg PO BID [facility] Last Admin: 09/04/18 08:59 Dose: 1,200 mg Heparin Sodium (Porcine) (Heparin Na) 5,000 unit SC Q8 [facility] Last Admin: 09/04/18 15:06 Dose: 5,000 unit Azithromycin 500 mg/ Dextrose 255 mls @ 250 mls/hr IV Q24@2200 [facility] Stop: 09/06/18 23:02 Ceftriaxone Sodium (Rocephin) 1 gm in 50 mls @ 100 mls/hr IV Q24@2200 [facility] Lorazepam (Ativan) 1 mg IV X1 ONE Stop: 09/04/18 17:14 Magnesium Hydroxide (Milk Of Magnesia) 30 ml PO DAILY PRN PRN PRN Reason: Constipation Metoprolol Tartrate (Lopressor (Beta Cary)) 50 mg PO BID [facility] Last Admin: 09/04/18 08:59 Dose: 50 mg Multivit/Ca Carb/B Cmplx/FA/Prenat (Nephrocaps, Renaphro) 1 capsule PO DAILY [facility] Last Admin: 09/04/18 15:06 Dose: 1 capsule Nifedipine (Procardia Xl) 120 mg PO DAILY [facility] Last Admin: 09/04/18 08:59 Dose: 120 mg Nutritional Formula (Nepro Carb Steady) 120 ml PO 4X/DAY [facility] Last Admin: 09/04/18 15:07 Dose: Not Given Ondansetron HCl (Zofran) 4 mg IV Q8H PRN PRN PRN Reason: NAUSEA Pantoprazole Sodium (Protonix) 40 mg PO DAILY [facility] Last Admin: 09/04/18 08:59 Dose: 40 mg Sevelamer Carbonate (Renvela) 1,600 mg PO TIDCM [facility] Last Admin: 09/04/18 12:07 Dose: 1,600 mg Sodium Chloride () 5 - 15 ml IV UD PRN PRN Reason: SALINE FLUSH Medical Necessity - Tobacco Use Smoking Status: Former smoker Assessment/Plan All Active Problems (Last Reviewed 09/04/18 @ 05:01 by Gio Aponte MD) Community acquired pneumonia (Acute) ESRD (end stage renal disease) on dialysis (Acute) 1. Septic shock/severe sepsis secondary to CAP, lactic acid in [place] was 4.8, resolved remarkably to 0.6 here On IV ceftriaxone/azithromycin, Called [facility], blood cultures taken from ED are pending, will repeat blood cultures here, will continue same 2. Acute diarrhea, will rule out c. diff, will place in contact isolation 3. ESRD on HD, dialysis today, nephrology consulted 4. Hypertension, controlled, will continue to monitor on home regimen 5. H/o sjogren's syndrome, Raynaud's disease 6. DVT PPx - Heparin SC Code Visit Inpatient E&M: 69599 Subs Hosp L2
[2018-09-04] MEDS: LORazepam 2 MG/ML Syringe 1 MG IV (17:27)
[2018-09-04] MEDS: 0.9% NaCl Peripheral Flush Adult/Peds IV ×2 (17:28→19:47)
[2018-09-04] MEDS: Nepro Liquid 120 ML LIQUID PO ×2 (17:28→21:28)
--- NOTE | 2018-09-04 17:32 | DIALYSIS ---
HD x 2 hours and 45 min complete. The pt started shaking and tachycardia noted during tx. Pt was restless. Temp noted post tx. Dr. Fuentes was notified. Ran on 3k bath. UF of 500ml. Used upper right arm graft. [place] remove post tx and pressure applied to sites 15min. Fresh gauze and tape applied. No bleeding noted. Report was given to CARROLL Bishop
[2018-09-04 18:15] LABS: Lactic Acid 3.2 mmol/L (0.4-2.0)
--- NOTE | 2018-09-04 19:35 | NURSING ---
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 pt has coat on upside down attempting to leave room unable to state where he is, pt picking at unseen things in the air. this rn, liss & other rn jarrod assisted pt back to bed. removed his coat. unable to reorient pt. very restless & disoriented. gwendolyn moy in to be 1:1 with pt for safety. ciwa done and ativan to be given
[2018-09-04] MEDS: 0.9% Normal Saline 1,000 ML 100 ML IV (19:46)
[2018-09-04] MEDS: LORazepam 2 MG/ML Syringe IV (19:48)
[2018-09-04 21:27] LABS: Reflex Lactate? Y
[2018-09-04] MEDS: Ceftriaxone 1 GM/50 ML BAG IV (21:28)
[2018-09-04 22:01] LABS: Lactic Acid 0.8 mmol/L (0.4-2.0)
[2018-09-05] VITALS (21 sets, daily range): BP systolic 107–126; BP diastolic 71–81; PULSE 62–96; RESP 16–20; TEMP 36.4–39.2; O2SAT 94–100
--- NOTE | 2018-09-05 03:42 | PCM.PN.BLA ---
Progress Note Was notified by nursing staff that preliminary aerobic blood culture x2 drawn at [facility] showed gram-positive cocci in clusters. Also from hospitalist notes on 09/04/2018 while patient was having dialysis he was shivering for which reason blood culture was taken at our hospital. We will start patient on vancomycin. First dose ordered. Discussed with pharmacy to continue subsequent vancomycin dosing. Patient is already on ceftriaxone and azithromycin that will be continued for now.
--- NOTE | 2018-09-05 03:46 | PN_ITS ---
Progress Note Was notified by nursing staff that preliminary aerobic blood culture x2 drawn at [facility] showed gram-positive cocci in clusters. Also from hospitalist notes on 09/04/2018 while patient was having dialysis he was shivering for which reason blood culture was taken at our hospital. We will start patient on vancomycin. First dose ordered. Discussed with pharmacy to continue subsequent vancomycin dosing. Patient is already on ceftriaxone and azithromycin that will be continued for now.
--- NOTE | 2018-09-05 04:14 | PCM.RX.CS ---
Consult Pharmacy has been consulted to manage selected antiobiotic: Vancomycin Type of Consult: New start Suspected Infection: Pneumonia Prior Doses of Antibiotics Received/Current Regimen: Medications Vancomycin HCl () 500 mg in 100 mls @ 100 mls/hr IV X1 ONE Stop: 09/06/18 15:59 Vancomycin HCl 750 mg/ Sodium (Chloride) 265 mls @ 250 mls/hr IV X1 ONE Stop: 09/05/18 05:03 Last Admin: 09/05/18 03:56 Dose: 250 mls/hr Labs: Sodium 137 mmol/L (136-145) 09/04/18 05:04 Potassium 3.6 mmol/L (3.5-5.1) 09/04/18 05:04 Chloride 96 mmol/L (98-107) L 09/04/18 05:04 Carbon Dioxide 30.0 mmol/L (21.0-32.0) 09/04/18 05:04 Anion Gap 11 (5-15) 09/04/18 05:04 BUN 46 mg/dL (7-18) H 09/04/18 05:04 Creatinine 8.16 mg/dL (0.70-1.30) H* 09/04/18 05:04 Est GFR (MDRD) Af Amer 9 mL/min (>60) L 09/04/18 05:04 Est GFR (MDRD) Non-Af 7 mL/min (>60) L 09/04/18 05:04 BUN/Creatinine Ratio 5.6 RATIO (10-20) L 09/04/18 05:04 Glucose 115 mg/dL (74-106) H 09/04/18 05:04 Microbiology: Microbiology 09/05/18 02:00 Stool C. difficile DNA Amplification - Final 09/04/18 09:10 Sputum, Expectorated/Coughed Gram Stain - Final 09/04/18 09:10 Urine, Clean Catch Streptococcus pneumoniae Antigen (M - Final 09/04/18 09:10 Urine, Clean Catch Legionella Antigen - Final 09/04/18 05:05 Mucosa - Nasopharyngeal Influenza Types A,B Direct FA (SAKINA) - Final Weight used for dosin.8 kg Estimated Creatinine Clearance: 7.51 Goal Trough: 15-20 mcg/mL Pharmacy Plan for Drug Dosing: Initial dose of 750mg vancomycin given 09/05/18. Will give 500mg dose AFTER dialysis on Saturday09/06/18, then draw random level BEFORE dialysis on Saturday09/09/18 for further dosing. Pharmacy Service will continue to monitor and adjust dosing as required. Follow-Up Labs: Trough Vancomycin - random Labs to be done on [date and time ordered]: 09/09/18 @1200 (pre-dialysis)
[2018-09-05] MEDS: Heparin Injection (Vial) 5,000 UNIT/ML VIAL 5000 UNIT SC ×3 (06:12→21:55)
[2018-09-05 07:26] LABS: Absolute Lymphocyte Count 0.72 X10^3/ul (0.83-4.51); Basophil# 0.02 X10^3/uL; Basophil% 0.2 % (0-1); Eosinophil# 0.14 X10^3/uL; Eosinophils% 1.1 % (0-5); Hematocrit 29.2 % (40-54); Hemoglobin 9.1 g/dl (13.0-16.5); Lymphocyte # 0.72 X10^3/ul (4.0); Lymphocyte % 5.9 % (19-41); Mean Corp Hgb Conc 31.2 g/gl (32-36); Mean Corpuscular Hgb 29.5 pg (27.0-32.0); Mean Corpuscular Volume 94.8 fL (80-94); Mean Platelet Vol. 12.5 fl (6.2-12.0); Monocyte# 1.41 X10^3/uL; Monocyte% 11.5 % (0-10); Neutrophil # 9.96 X10^3/uL (2.7-7.7); Neutrophil % 81.1 % (47-70); Platelet Count 109 K/mm3 (150-450); RBC Distribution Width CV 17.3 % (11.6-14.6); RBC Distribution Width SD 59.2 fl (35.1-43.9); Red Blood Count 3.08 M/mm3 (4.6-6.2); White Blood Count 12.3 K/mm3 (4.4-11.0)
[2018-09-05 07:29] LABS: POSITIVE COUNT NO; POSITIVE DIFFERENTIAL NO; POSITIVE MORPHOLOGY NO
[2018-09-05 07:35] LABS: BUN 25 mg/dL (7-18); Creatinine, Serum 5.25 mg/dL (0.70-1.30); EST Glomerular Filtration Rate 12 mL/min (>60); Estimated Creatinine Clearance 11.67 ml/min; Glucose 84 mg/dL (74-106)
[2018-09-05 07:36] LABS: Anion Gap 9 (5-15); BUN/Creat Ratio 4.8 RATIO (10-20); Calcium,Total 7.8 mg/dL (8.5-10.1); Chloride 99 mmol/L (98-107); Est Glom Filt Rate - Afr Amer 15 mL/min (>60); Potassium 3.2 mmol/L (3.5-5.1); Sodium Level 136 mmol/L (136-145)
[2018-09-05] MEDS: SEVELAMER CARBONATE 800 MG TABLET 1600 MG PO ×3 (07:47→16:50)
[2018-09-05] MEDS: LORazepam 1 MG Tablet 2 MG PO (08:07)
[2018-09-05] MEDS: Acetaminophen 325 MG Tablet 650 MG PO (08:07)
[2018-09-05] MEDS: 0.9% NaCl Peripheral Flush Adult/Peds IV ×4 (08:12→16:47)
--- NOTE | 2018-09-05 09:11 | ECHOD_ITS ---
Reason For Study: Dyspnea/SOB Left Ventricle Normal LV size. Left ventricular systolic function is normal. The estimated ejection fraction is 60 %. Stage 1 diastolic dysfunction. No regional wall motion abnormalities noted. Right Ventricle Normal RV size. Normal systolic function. Atria The left atrium is mildly enlarged. Normal right atrium. Mitral Valve There is moderate mitral annular calcification. Mild (1+) eccentric mitral valve insufficiency. Tricuspid Valve Normal tricuspid valve. Mild (1+) tricuspid valve insufficiency. Aortic Valve Trisinus/trileaflet aortic valve. Mild focal aortic valve calcification. Mild (1+) eccentric aortic valve insufficiency. Pulmonic Valve Normal pulmonic valve. Mild (1+) pulmonic valve insufficiency. Great Vessels Mild to moderately dilated aortic root. The pulmonary artery is normal size. Normal inferior vena cava. Pericardium/Pleural No pericardial effusion. MMode/2D Measurements & Calculations LVIDd: 4.7 cm IVSd: 0.73 cm LVOT diam: 2.0 cm LVIDs: 3.4 cm LVPWd: 0.98 cm LVOT area: 3.0 cm2 RVDd: 3.3 cm FS: 28.1 % Ao root diam: 4.0 cm LAV(MOD-bp): 62.9 ml LVAd ap4: 28.2 cm2 LAV(MOD-bp) Indexed: 41.2 ml/m2 EDV(MOD-sp4): 79.1 ml LAV(MOD-sp2): 46.4 ml EDV(sp4-el): 81.2 ml LAV(MOD-sp4): 72.5 ml LVAs ap4: 14.5 cm2 ESV(MOD-sp4): 27.3 ml ESV(sp4-el): 28.0 ml EF(MOD-sp4): 65.5 % EF(sp4-el): 65.5 % SV(MOD-sp4): 51.8 ml SV(sp4-el): 53.2 ml LA A4 area: 23.8 cm2 LA dimension(2D): 3.7 cm RA A4 area: 11.4 cm2 Doppler Measurements & Calculations MV E max trino: 105.7 cm/sec Lat Peak E' Trino: 10.6 cm/sec Med Peak E' Trino: 7.6 cm/sec MV A max trino: 112.5 cm/sec E/E' lat: 10.0 E/E' med: 13.9 MV E/A: 0.94 Ao V2 max: 220.2 cm/sec AI max trino: 363.9 cm/sec LV V1 max: 129.5 cm/sec Ao max P.4 mmHg AI max P.0 mmHg LV V1 max P.7 mmHg Ao V2 mean: 153.0 cm/sec LV V1 mean P.3 mmHg Ao mean P.4 mmHg AI dec slope: 235.3 cm/sec2 LV V1 mean: 100.6 cm/sec Ao V2 VTI: 40.4 cm AI P1/2t: 452.9 msec LV V1 VTI: 26.2 cm SHASHI(I,D): 1.9 cm2 SHASHI(V,D): 1.8 cm2 SV(LVOT): 78.3 ml PA V2 max: 113.4 cm/sec TR max trino: 352.6 cm/sec TR max P.7 mmHg Interpretation Summary Normal LV size. Left ventricular systolic function is normal. The estimated ejection fraction is 60 %. Stage 1 diastolic dysfunction. The left atrium is mildly enlarged. Mild (1+) eccentric mitral valve insufficiency. Mild to moderately dilated aortic root. Ordering Physician: Ligia Daley Referring Physician: Magdiel Jose Performed By: Anna Bravo RDCS, RVT
[2018-09-05] MEDS: Folic Acid/Vitamin B Comp W-C 1 Capsule 1 CAP PO (09:30)
[2018-09-05] MEDS: NIFEdipine 60 MG Tablet 120 MG PO (09:30)
[2018-09-05] MEDS: Pantoprazole Sodium 40 MG Tablet PO (09:30)
[2018-09-05] MEDS: Metoprolol Tartrate 50 MG Tablet PO ×2 (09:30→21:55)
[2018-09-05] MEDS: guaiFENesin 1,200 MG Tablet 1200 MG PO ×2 (09:30→21:55)
[2018-09-05] MEDS: 0.9% Normal Saline 1,000 ML 75 ML IV (09:33)
[2018-09-05] MEDS: Nepro Liquid 120 ML LIQUID PO ×2 (09:49→21:59)
--- NOTE | 2018-09-05 10:48 | NURSING ---
TECH IN ROOM, DOING ECHO AT THIS TIME.
--- NOTE | 2018-09-05 11:24 | RAD_ITS ---
STUDY: X-RAY CHEST REASON FOR EXAM: Male, 58 years old. Fever. Pneumonia. TECHNIQUE: Single AP portable view of the chest. COMPARISON: Comparison is made with prior study dated April 12, 2016. FINDINGS: EKG electrodes are seen. A covered vascular stent is once again seen in the left subclavian vein as it enters the superior vena cava. There are several small left pleural effusion with underlying left basilar infiltration and/or atelectasis. The right lung base is clear. There is mild cardiac enlargement. Normal mediastinum and delicia. Normal visualized pulmonary arteries. There is atherosclerotic calcification of the aortic arch with tortuosity. There are diffuse degenerative changes of the visualized thoracic spine. Normal visualized ribs, clavicles, and shoulders. There is no demonstrated abnormality of the visualized soft tissue structures of the upper abdomen. RAD/Chest 1 View (Portable) IMPRESSION: Left lower lobe infiltration and small left pleural effusion. Electronically Signed: Wilton Walker, at 11:53 EST , Service support ,
--- NOTE | 2018-09-05 11:59 | AVDS_ITS ---
Reason For Study: Bacteremia per dr order RIGHT Prox jackson artery - 78.3 cm/s Volume flow - 1026 cc/min Prox Anastomosis - 144 cm/s Prox graft - 534 cm/s Volume flow - 2826 cc/min Mid graft - 202 cm/s Volume flow - 673 cc/min Dist graft -179 cm/s Volume flow - 974 cc/min Dist Anastomosis - 131 cm/s [place] - 135 cm/s Volume flow -1209 cc/min. Interpretation Summary High flow right upper extremity graft No history provided Suspecious for stent in distal graft Small non-vascular fluid collection superficial to proximal graft Ordering Physician: Wayne Salguero Referring Physician: Rinku Jose M.D. Performed By: Jillian Santana RVT
[2018-09-05] MEDS: Ondansetron 4 MG/2 ML Vial IV (13:25)
--- NOTE | 2018-09-05 14:13 | CASEMGMT ---
Social Work Referral for Alcohol abuse. Patient with Ethyl Alcohol level of 10.0. With 50-100 being impairment. Met with patient in the room. Patient resting in bed and open to this clinical social work aide discussing alcohol usage. Patient reporting to have 2-3 glassed of wine a week and mainly with meals. When patient was asked how patient would define relationship with alcohol patient reported to have a controlled relationship. Patient reporting to have support from family and denies any depression or anxiety. Patient currently has Dialysis 2 days a week and reports to be able to provide own transportation to dialysis center. Patient reporting to have started dialysis in 2012. Patient spouse does work and at times patient reports to be tired after dialysis. Patient denies any medication, marijuana, cocaine, or heroine abuse. Patient denies any other alcohol usage outside of 2-3 glasses of wine during the week. Patient reporting to have no concerns with returning to home. Patient continued with a pleasant affect during conversation. Support given. Patient plans to discharge to home with spouse. Vicky LEONG, BOUCHRA
--- NOTE | 2018-09-05 14:20 | PN.RENAL_ITS ---
Patient Problems: Active and Suspected Problems (Last Reviewed 09/04/18 @ 05:01 by Gio Aponte MD) Community acquired pneumonia (Acute) ESRD (end stage renal disease) on dialysis (Acute) Subjective: events noted - Physical Exam General: Alert, Oriented x3, Cooperative HEENT: Atraumatic, PERRLA, EOMI, Normocephalic Neck: Supple, No JVD, Negative Carotid Bruits Lungs: Clear to auscultation, Normal air movement Cardiovascular: Regular rate, No murmurs Abdomen: Bowel Sounds Present, Soft, Non Tender Extremities: No edema, Capillary Refill Less than 3 Seconds Skin: No rashes, No breakdown Musculoskeletal: No Tenderness to Palpation of Joints or Extremities Neurological: Cranial nerves II-XII grossly intact Psych/Mental Status: Normal Affect, Appropriate Vital Signs Temp Pulse Resp BP Pulse Ox 98.9 F 77 16 114/72 95 09/05/18 13:53 09/05/18 13:53 09/05/18 13:53 09/05/18 13:53 09/05/18 13:53 Oxygen Flow Rate (L/min) 2 Oxygen Delivery Method Room Air Weight: 53.8 kg Body Mass Index (BMI) 21.7 Intake and Output for Last 24 Hours 09/03/18 09/04/18 09/05/18 23:59 23:59 23:59 Intake Total 480 / 480 2619 / 2619 Output Total 60 / 60 0 / 0 Balance 420 / 420 2619 / 2619 Microbiology Past 72 Hours 09/04/18 17:20 Blood Culture - Preliminary Blood Culture (Wb) - Anticubital Left 09/04/18 09:10 Gram Stain - Final Sputum, Expectorated/Coughed Respiratory Culture - Preliminary Staphylococcus aureus 09/05/18 02:00 C. difficile DNA Amplification - Final Stool 09/04/18 09:10 Streptococcus pneumoniae Antigen (M - Final Urine, Clean Catch 09/04/18 09:10 Legionella Antigen - Final Urine, Clean Catch 09/04/18 05:05 Influenza Types A,B Direct FA (SAKINA) - Final Mucosa - Nasopharyngeal Laboratory Tests Past 24 Hrs 09/04/18 09/04/18 09/04/18 17:10 21:28 21:28 WBC RBC Hgb Hct MCV MCH MCHC RDW RDW Differential Plt Count MPV Immature Gran % (Auto) Neut % (Auto) Lymph % (Auto) [place] % (Auto) Eos % (Auto) Baso % (Auto) Absolute Neuts (auto) Absolute Lymphs (auto) Total Counted Sodium Potassium Chloride Carbon Dioxide Anion Gap BUN Creatinine Estim Creat Clear Calc Est GFR (MDRD) Af Amer Est GFR (MDRD) Non-Af BUN/Creatinine Ratio Glucose Lactic Acid 3.2 H 0.8 Calcium Ethyl Alcohol 10.0 09/05/18 09/05/18 06:43 06:43 WBC 12.3 H RBC 3.08 L Hgb 9.1 L Hct 29.2 L MCV 94.8 H MCH 29.5 MCHC 31.2 L RDW 17.3 H RDW Differential 59.2 H Plt Count 109 L MPV 12.5 H Immature Gran % (Auto) 0.200 Neut % (Auto) 81.1 H Lymph % (Auto) 5.9 L [place] % (Auto) 11.5 H Eos % (Auto) 1.1 Baso % (Auto) 0.2 Absolute Neuts (auto) 10.0 H Absolute Lymphs (auto) 0.72 L Total Counted Not Reportable Sodium 136 Potassium 3.2 L Chloride 99 Carbon Dioxide 28.0 Anion Gap 9 BUN 25 H Creatinine 5.25 H Estim Creat Clear Calc 11.67 Est GFR (MDRD) Af Amer 15 L Est GFR (MDRD) Non-Af 12 L BUN/Creatinine Ratio 4.8 L Glucose 84 Lactic Acid Calcium 7.8 L Ethyl Alcohol Medical Necessity - Tobacco Use Smoking Status: Former smoker Assessment/Plan All Active Problems (Last Reviewed 09/04/18 @ 05:01 by Gio Aponte MD) Community acquired pneumonia (Acute) ESRD (end stage renal disease) on dialysis (Acute) ESRD. HD tomorrow as per schedule Sepsis. likely related to pneumonia. CXR done at [place] apparently showed left sided pneumonia. overnight he spiked fever. Cultures drawn at [facility] apparently showed gm positive cocci. speciation pending. ani Daley. ID consult placed today. Of note patient has an AV graft for access
--- NOTE | 2018-09-05 15:58 | CT_ITS ---
STUDY: CT CHEST WITHOUT CONTRAST REASON FOR EXAM: Male, 58 years old. Cough/pleural effusion/pneumonia. End stage renal disease-on dialysis. RADIATION DOSAGE (If Supplied By Facility): CTDIvol = ( 9.42 ) mGy, DLP = ( 336.51 ) mGycm TECHNIQUE: Transaxial imaging was performed without the administration of intravenous contrast material. Individualized dose optimization techniques were used for this CT. COMPARISON: None. FINDINGS: There is hyperinflation of the lungs consistent with chronic obstructive lung disease (COPD). Suspicious nodular 1.2 cm nodule in the posterior right apex, axial image 29, sagittal image 129. This needs further evaluation. Malignancy is not excluded. Irregular pleural thickening seen in the posterior right upper hemithorax, probable pleural plaque. 3.6 mm nodule in the left apex, axial image 33, series 4. Abnormalities throughout much of the left lower lobe with consolidation, most consistent with atelectasis and possibly scarring. Mass or infiltrate not excluded especially on this noncontrast study. Small posterior left pleural effusion, with pleural thickening, very likely loculated. There is a left brachiocephalic vein stent. There is mild cardiac enlargement. There are calcifications of the coronary arteries. Several prominent upper mediastinal lymph nodes are seen. These are indeterminate. Cannot exclude malignant adenopathy. Cannot exclude adenopathy in either delicia without IV contrast. Normal unenhanced pulmonary arteries. Ectasia of the ascending aorta which measures as much as 4.3 cm greatest diameter. Normal osseous structures. Limited views through the upper abdomen show abnormal gallbladder with pericholecystic edema. Bilateral renal cysts and probable cortical scarring. CT/Chest without Contrast IMPRESSION: Atelectasis and/or infiltrate in the left lower lobe. Cannot exclude neoplasm. Small probably loculated effusion in the posterior lower left hemithorax. Nodules in the right and left apices as described, recommend follow-up in 4-6 months. Suspicious upper mediastinal adenopathy. Ectasia of the ascending aorta. Electronically Signed: Peyman Crum MD at 20:41 EST , Service support ,
--- NOTE | 2018-09-05 16:04 | CON.PCM_ITS ---
Problem List (1) Bacteremia Status: Acute Reason for Consult: (+) bcx Consulted by: Dr. Daley History of Present Illness: The patient is a 58 year old M with ESRD, HD via RUE fistula who presented with several days of not feeling well, chills, shakes, fever. Has been having some intermittent cough, SOB, and green sputum for past few weeks. No issues with fistula pain/redness/drainage/swelling. No new focal joint pain. Seen in [place] ED, bcx taken, admitted here now since bcx turned (+). Cxr showed pneumonia. Started on vanc/zosyn here. Full ROS performed and neg except as noted above. - Medical History Past Medical History (Chronic Problems): Chronic Problems (Last Reviewed 09/04/18 @ 05:01 by Gio Aponte MD) CKD (chronic kidney disease), stage V (Chronic) Pulmonary fibrosis (Chronic) Systemic sclerosis (Chronic) Renal failure (Chronic) Raynaud disease (Chronic) Anemia (Chronic) Systemic sclerosis (Chronic) Osteoarthritis (Chronic) Hypokalemia (Chronic) HTN (hypertension) (Chronic) Generalized edema (Chronic) CKD (chronic kidney disease), stage V (Chronic) Anemia (Chronic) Alcohol abuse (Chronic) Acute renal failure syndrome (Chronic) Allergies/Adverse Reactions: Allergies aspirin Allergy (Verified 09/04/18 03:33) Itching lisinopril Allergy (Verified 09/04/18 03:33) Itching valsartan Allergy (Verified 09/04/18 03:33) Itching Home Medications: Ambulatory Orders Medication Instructions Recorded Benzonatate [Tessalon Perle] 100 mg PO TID PRN PRN 07/28/13 Sevelamer Carbonate [Renvela] 1,600 mg PO TID 07/28/13 acetaminophen 325 mg capsule 650 mg PO Q6H PRN 02/26/18 adapalene 0.3 % topical gel 1 applic TOPICAL QPM 02/26/18 albuterol sulfate HFA 90 1 puff INHALATION Q6H PRN 02/26/18 mcg/actuation aerosol inhaler nifedipine ER 60 mg 120 mg PO DAILY #180 tab 04/11/18 tablet,extended release Amox/Clavulanate Tablet [Augmentin 500 mg PO DAILY #7 tablet 09/04/18 Tablet] Folic Acid/Vit B Complex and C 1 tab PO DAILY 09/04/18 [Renal Vitamin Tablet] Guaifenesin [Mucinex] 600 mg PO DAILY PRN 09/04/18 Metoprolol Tartrate [Lopressor 50 mg PO BID 09/04/18 (beta yenny)] Nepro Liquid [Nepro Carb Steady] 120 ml PO 4X/DAY #100 liquid 09/04/18 Pantoprazole Sodium 40 mg PO DAILY 09/04/18 - Social History SMOKING STATUS:: Former smoker Vital Signs Temp Pulse Resp BP Pulse Ox 98.9 F 77 16 114/72 95 09/05/18 13:53 09/05/18 15:00 09/05/18 13:53 09/05/18 13:53 09/05/18 14:43 Oxygen Flow Rate (L/min) 2 Oxygen Delivery Method Nasal Cannula Weight: 53.8 kg Body Mass Index (BMI) 21.7 Microbiology Past 72 Hours 09/04/18 17:20 Blood Culture - Preliminary Blood Culture (Wb) - Anticubital Left 09/04/18 09:10 Gram Stain - Final Sputum, Expectorated/Coughed Respiratory Culture - Preliminary Staphylococcus aureus 09/05/18 02:00 C. difficile DNA Amplification - Final Stool 09/04/18 09:10 Streptococcus pneumoniae Antigen (M - Final Urine, Clean Catch 09/04/18 09:10 Legionella Antigen - Final Urine, Clean Catch 09/04/18 05:05 Influenza Types A,B Direct FA (SAKINA) - Final Mucosa - Nasopharyngeal Laboratory Tests Past 24 Hrs 09/04/18 09/04/18 09/04/18 17:10 21:28 21:28 WBC RBC Hgb Hct MCV MCH MCHC RDW RDW Differential Plt Count MPV Immature Gran % (Auto) Neut % (Auto) Lymph % (Auto) [place] % (Auto) Eos % (Auto) Baso % (Auto) Absolute Neuts (auto) Absolute Lymphs (auto) Total Counted Sodium Potassium Chloride Carbon Dioxide Anion Gap BUN Creatinine Estim Creat Clear Calc Est GFR (MDRD) Af Amer Est GFR (MDRD) Non-Af BUN/Creatinine Ratio Glucose Lactic Acid 3.2 H 0.8 Calcium Ethyl Alcohol 10.0 09/05/18 09/05/18 06:43 06:43 WBC 12.3 H RBC 3.08 L Hgb 9.1 L Hct 29.2 L MCV 94.8 H MCH 29.5 MCHC 31.2 L RDW 17.3 H RDW Differential 59.2 H Plt Count 109 L MPV 12.5 H Immature Gran % (Auto) 0.200 Neut % (Auto) 81.1 H Lymph % (Auto) 5.9 L [place] % (Auto) 11.5 H Eos % (Auto) 1.1 Baso % (Auto) 0.2 Absolute Neuts (auto) 10.0 H Absolute Lymphs (auto) 0.72 L Total Counted Not Reportable Sodium 136 Potassium 3.2 L Chloride 99 Carbon Dioxide 28.0 Anion Gap 9 BUN 25 H Creatinine 5.25 H Estim Creat Clear Calc 11.67 Est GFR (MDRD) Af Amer 15 L Est GFR (MDRD) Non-Af 12 L BUN/Creatinine Ratio 4.8 L Glucose 84 Lactic Acid Calcium 7.8 L Ethyl Alcohol - Other Studies Radiology: [] reviewed cxr images Other Studies: [] Route of nutrition/ use of supplements: [] Nutritional Intake: [] IV Site: [] Luther Catheter: [] - Physical Exam General: Alert, Oriented x3, Cooperative HEENT: Atraumatic, PERRLA, EOMI Neck: Supple, No Nodes Lungs: Diminished - L base Cardiovascular: Regular rate, Regular Rhythm, Murmur Abdomen: Soft, Non Tender, Non-Distended Extremities: No edema, - - no focal joint or spine pain Skin: No rashes, - - No inflammation over RUE fistula. ? small splinter hemorrhage on R 1st toe. IV Site: Peripheral, without redness Musculoskeletal: No Tenderness to Palpation of Joints or Extremities Neurological: Cranial nerves II-XII grossly intact - Assessment/Plan Antibiotics: [] Assessment/Plan: [] Active and Suspected Problems (Last Reviewed 09/04/18 @ 05:01 by Gio Aponte MD) Community acquired pneumonia (Acute) ESRD (end stage renal disease) on dialysis (Acute) staph-like bacteremia, possible pneumonia as source - concern for fistula and heart involvement. Will check CT chest to look for possible effusion/empyema. Check TTE for possible endocarditis. Check fistula for abscess. Sputum cx with mixed organisms on gram stain, cx now showing staph. He has prior h/o MSSA bacteremia. Continue vanc/zosyn for now. Will follow, thank you.
--- NOTE | 2018-09-05 16:13 | CHAPLAIN ---
Type of Pastoral Visit _x__ Initial Visit ___ Follow-up Visit ___ On-call Visit ___ General Patient Visit ___ Spiritual Assessment ___ Family Conference ___ Bereavement ___ Rapid Response ___ Code Blue ___ Other (describe below) Pastoral Care Referral From _x__ Patient ___ Family ___ Nurse ___ Physician ___ Lasting Machine Operator Bed ___ Metallurgical Technician ___ Other (describe below) Sacrament/Intervention _x__ Active listening ___ Anointing ___ Tenriism ___ Bereavement ___ Communion _x__ Meghan exploration ___ _x__ Life review _x__ Prayer ___ Reconciliation ___ Sacrament of Sick _x__ Supportive presence ___ Wedding ___ Other (describe below) Pastoral Comments
--- NOTE | 2018-09-05 17:58 | PN_ITS ---
Patient Problems: Active and Suspected Problems (Last Reviewed 09/04/18 @ 05:01 by Gio Aponte MD) Community acquired pneumonia (Acute) ESRD (end stage renal disease) on dialysis (Acute) Bacteremia (Acute) Subjective: Patient seen and examined. He complains of fever and chills. Denies chest pain, dizziness or SOB. Patient was apparently hallucinating yesterday. Admits to drinking 2-3 glasses of wine a day. He was started on CIWA protocol. Has had 1 episode of diarrhea today. Vitals/I&O's: Vital Signs Temp Pulse Resp BP Pulse Ox 98.7 F 77 16 112/72 94 09/05/18 17:53 09/05/18 17:53 09/05/18 17:53 09/05/18 17:53 09/05/18 17:53 Oxygen Flow Rate (L/min) 2 Oxygen Delivery Method Room Air Weight: 53.8 kg Body Mass Index (BMI) 21.7 Intake and Output for Last 24 Hours 09/03/18 09/04/18 09/05/18 23:59 23:59 23:59 Intake Total 480 / 480 3522 / 3522 Output Total 60 / 60 0 / 0 Balance 420 / 420 3522 / 3522 General: Alert, Oriented x3, Cooperative, No apparent distress HEENT: Atraumatic, PERRLA, EOMI, Normocephalic Oral: Moist Mucosa Neck: Supple, No JVD, Negative Carotid Bruits Lungs: Diminished, Rales Cardiovascular: Regular rate, Regular Rhythm, Normal S1, Normal S2, Tachycardic Abdomen: Bowel Sounds Present, Soft, Non Tender, Non-Distended, No Hepato- splenomegaly Extremities: No edema Skin: No rashes, No breakdown Musculoskeletal: No Tenderness to Palpation of Joints or Extremities Lymphatic: No Cervical, Supraclavicular, or Inguinal Adenopathy Neurological: Cranial nerves II-XII grossly intact, Neuro grossly intact Psych/Mental Status: Normal Affect, Appropriate Microbiology Past 72 Hours 09/04/18 17:20 Blood Culture (Wb) - Anticubital Left Blood Culture - Pre liminary 09/04/18 09:10 Sputum, Expectorated/Coughed Gram Stain - Final 09/04/18 09:10 Sputum, Expectorated/Coughed Respiratory Culture - Preliminary Staphylococcus aureus 09/05/18 02:00 Stool C. difficile DNA Amplification - Final 09/04/18 09:10 Urine, Clean Catch Streptococcus pneumoniae Antigen (M - Final 09/04/18 09:10 Urine, Clean Catch Legionella Antigen - Final 09/04/18 05:05 Mucosa - Nasopharyngeal Influenza Types A,B Direct FA (SAKINA) - Final Laboratory Results 09/04/18 17:10: Lactic Acid 3.2 H 09/04/18 21:28: Ethyl Alcohol 10.0 09/04/18 21:28: Lactic Acid 0.8 09/05/18 06:43: WBC 12.3 H, RBC 3.08 L, Hgb 9.1 L, Hct 29.2 L, MCV 94.8 H, MCH 29.5, MCHC 31.2 L, RDW 17.3 H, RDW Differential 59.2 H, Plt Count 109 L, MPV 12.5 H, Immature Gran % (Auto) 0.200, Neut % (Auto) 81.1 H, Lymph % (Auto) 5.9 L , [place] % (Auto) 11.5 H, Eos % (Auto) 1.1, Baso % (Auto) 0.2, Absolute Neuts (auto) 10.0 H, Absolute Lymphs (auto) 0.72 L, Total Counted Not Reportable 09/05/18 06:43: Sodium 136, Potassium 3.2 L, Chloride 99, Carbon Dioxide 28.0, Anion Gap 9, BUN 25 H, Creatinine 5.25 H, Estim Creat Clear Calc 11.67, Est GFR (MDRD) Af Amer 15 L, Est GFR (MDRD) Non-Af 12 L, BUN/Creatinine Ratio 4.8 L, Glucose 84, Calcium 7.8 L Current Medications Acetaminophen (Tylenol) 650 mg PO Q6H PRN PRN PRN Reason: PAIN Last Admin: 09/05/18 08:07 Dose: 650 mg Adapalene (Differin) 1 gm TP QPM [facility] Last Admin: 09/04/18 21:28 Dose: Not Given Albuterol Sulfate (Ventolin Aerosols) 2.5 mg INHALATION Q2H PRN PRN PRN Reason: SHORTNESS OF BREATH Benzonatate (Tessalon Perle) 100 mg PO TID PRN PRN PRN Reason: FREQUENT COUGH Guaifenesin (Mucinex) 1,200 mg PO BID [facility] Last Admin: 09/05/18 09:30 Dose: 1,200 mg Heparin Sodium (Porcine) (Heparin Na) 5,000 unit SC Q8 [facility] Last Admin: 09/05/18 13:18 Dose: 5,000 unit Vancomycin IV Pharmacy to Dose (750 ea/ Sodium Chloride) 500 mls @ 250 mls/hr IV PRN PRN; Protocol Vancomycin HCl () 500 mg in 100 mls @ 100 mls/hr IV X1 ONE Stop: 09/06/18 15:59 Piperacillin Sod/Tazobactam (Sod 3.375 gm/ Sodium Chloride) 50 mls @ 12.5 mls/hr IV Q12 [facility] Last Admin: 09/05/18 11:32 Dose: 12.5 mls/hr Sodium Chloride () 1,000 mls @ 75 mls/hr IV .[id number] [facility] Stop: 09/05/18 22:49 Last Admin: 09/05/18 09:33 Dose: 75 mls/hr Lorazepam (Ativan) 2 mg PO Q2H PRN PRN; Protocol PRN Reason: CIWA score > 8 but <15 Last Admin: 09/05/18 08:07 Dose: 2 mg Lorazepam (Ativan) 2 mg PO UD PRN; Protocol PRN Reason: CIWA score >/=15. Lorazepam (Ativan) 2 mg IV Q2H PRN PRN; Protocol PRN Reason: CIWA score > 8 but <15 Last Admin: 09/04/18 19:48 Dose: 2 mg Lorazepam (Ativan) 2 mg IV UD PRN; Protocol PRN Reason: CIWA score >/=15. Magnesium Hydroxide (Milk Of Magnesia) 30 ml PO DAILY PRN PRN PRN Reason: Constipation Metoprolol Tartrate (Lopressor (Beta Cary)) 50 mg PO BID [facility] Last Admin: 09/05/18 09:30 Dose: 50 mg Multivit/Ca Carb/B Cmplx/FA/Prenat (Nephrocaps, Renaphro) 1 capsule PO DAILY [facility] Last Admin: 09/05/18 09:30 Dose: 1 capsule Nifedipine (Procardia Xl) 120 mg PO DAILY [facility] Last Admin: 09/05/18 09:30 Dose: 120 mg Nutritional Formula (Nepro Carb Steady) 120 ml PO 4X/DAY [facility] Last Admin: 09/05/18 16:46 Dose: Not Given Ondansetron HCl (Zofran) 4 mg IV Q8H PRN PRN PRN Reason: NAUSEA Last Admin: 09/05/18 13:25 Dose: 4 mg Pantoprazole Sodium (Protonix) 40 mg PO DAILY [facility] Last Admin: 09/05/18 09:30 Dose: 40 mg Sevelamer Carbonate (Renvela) 1,600 mg PO TIDCM [facility] Last Admin: 09/05/18 16:50 Dose: 1,600 mg Sodium Chloride () 5 - 15 ml IV UD PRN PRN Reason: SALINE FLUSH Last Admin: 09/05/18 16:47 Dose: 10 ml Medical Necessity - Tobacco Use Smoking Status: Former smoker Assessment/Plan All Active Problems (Last Reviewed 09/04/18 @ 05:01 by Gio Aponte MD) Community acquired pneumonia (Acute) ESRD (end stage renal disease) on dialysis (Acute) Bacteremia (Acute) 1. Staph aureus bacteremia, started on IV vancomycin, ID consulted, will get 2D- echo, repeat blood cultures pending 2. Septic shock/severe sepsis secondary to CAP, lactic acid in [place] was 4.8, leucocytosis is improving Repeat lactic acid is 0.8, on IV vancomycin and zosyn, 3. Acute diarrhea, c. diff negative, likely antibiotic related, will continue to monitor 4. ESRD on HD, dialysis today, nephrology consulted 5. Hypertension, controlled, will continue to monitor on home regimen 6. H/o sjogren's syndrome, Raynaud's disease 7. DVT PPx - Heparin SC Code Visit Inpatient E&M: 64684 Subs Hosp L2
[2018-09-06] VITALS (16 sets, daily range): BP systolic 110–123; BP diastolic 69–75; PULSE 85–106; RESP 18–24; TEMP 36.4–37; O2SAT 88–100
[2018-09-06] MEDS: Acetaminophen 325 MG Tablet 650 MG PO (05:54)
[2018-09-06] MEDS: Heparin Injection (Vial) 5,000 UNIT/ML VIAL 5000 UNIT SC ×3 (05:55→22:42)
[2018-09-06] MEDS: Albuterol 2.5 MG/3 ML VIAL.NEB. INHALATION (07:19)
[2018-09-06 09:03] LABS: Albumin, Serum 2.1 g/dL (3.2-5.0); BUN 41 mg/dL (7-18); Calcium,Total 8.1 mg/dL (8.5-10.1); Chloride 103 mmol/L (98-107); Creatinine, Serum 6.87 mg/dL (0.70-1.30); EST Glomerular Filtration Rate 9 mL/min (>60); Est Glom Filt Rate - Afr Amer 11 mL/min (>60); Estimated Creatinine Clearance 8.92 ml/min; Glucose 92 mg/dL (74-106); Phosphorus 1.5 mg/dL (2.5-4.9); Potassium 3.7 mmol/L (3.5-5.1); Sodium Level 134 mmol/L (136-145)
--- NOTE | 2018-09-06 09:04 | PCA ---
pt receiving dialysis
--- NOTE | 2018-09-06 09:21 | CPS ---
Patient sleeping, PEP therapy Device placed at bedside, will initiate later.
--- NOTE | 2018-09-06 10:45 | PN_ITS ---
Patient Problems: Active and Suspected Problems (Last Reviewed 09/04/18 @ 05:01 by Gio Aponte MD) Community acquired pneumonia (Acute) ESRD (end stage renal disease) on dialysis (Acute) Bacteremia (Acute) Subjective: Patient seen and examined. Patient feels very slightly improved. Was having low-grade fevers yesterday. Currently on dialysis. Denies any chest pain or worsening shortness of breath. Remains on 2 L of oxygen. Objective: Physical exam: General: Alert, Oriented x3, Cooperative, No apparent distress HEENT: Atraumatic, PERRLA, EOMI, Normocephalic Oral: Moist Mucosa Neck: Supple, No JVD, Negative Carotid Bruits Lungs: Diminished, Rales Cardiovascular: Regular rate, Regular Rhythm, Normal S1, Normal S2, Tachycardic Abdomen: Bowel Sounds Present, Soft, Non Tender, Non-Distended, No Hepato- splenomegaly Extremities: No edema Skin: No rashes, No breakdown Musculoskeletal: No Tenderness to Palpation of Joints or Extremities Lymphatic: No Cervical, Supraclavicular, or Inguinal Adenopathy Neurological: Cranial nerves II-XII grossly intact, Neuro grossly intact Psych/Mental Status: Normal Affect, Appropriate Vitals/I&O's: Vital Signs Temp Pulse Resp BP Pulse Ox 98.6 F 85 24 H 115/75 92 09/06/18 02:35 09/06/18 08:15 09/06/18 07:19 09/06/18 02:35 09/06/18 07:25 Oxygen Flow Rate (L/min) 2 Oxygen Delivery Method Nasal Cannula Weight: 53.8 kg Body Mass Index (BMI) 21.7 Intake and Output for Last 24 Hours 09/04/18 09/05/18 09/06/18 23:59 23:59 23:59 Intake Total 480 / 480 3522 / 3522 730 / 730 Output Total 60 / 60 0 / 0 Balance 420 / 420 3522 / 3522 730 / 730 Microbiology Past 72 Hours 09/04/18 17:20 Blood Culture (Wb) - Arm Left Blood Culture - Preliminary Staphylococcus aureus 09/04/18 09:10 Sputum, Expectorated/Coughed Gram Stain - Final 09/04/18 09:10 Sputum, Expectorated/Coughed Respiratory Culture - Preliminary Staphylococcus aureus 09/04/18 17:20 Blood Culture (Wb) - Anticubital Left Bacteria Detection (PCR) - Final Staphylococcus aureus 09/04/18 17:20 Blood Culture (Wb) - Anticubital Left Blood Culture - Preliminary Staphylococcus aureus 09/05/18 02:00 Stool C. difficile DNA Amplification - Final 09/04/18 09:10 Urine, Clean Catch Streptococcus pneumoniae Antigen (M - Final 09/04/18 09:10 Urine, Clean Catch Legionella Antigen - Final 09/04/18 05:05 Mucosa - Nasopharyngeal Influenza Types A,B Direct FA (SAKINA) - Final Laboratory Results 09/06/18 08:30: Sodium 134 L, Potassium 3.7, Chloride 103, Carbon Dioxide 22.0, BUN 41 H, Creatinine 6.87 H, Estim Creat Clear Calc 8.92, Est GFR (MDRD) Af Amer 11 L, Est GFR (MDRD) Non-Af 9 L, BUN/Creatinine Ratio 6.0 L, Glucose 92, Calcium 8.1 L, Phosphorus 1.5 L, Albumin 2.1 L Current Medications Acetaminophen (Tylenol) 650 mg PO Q6H PRN PRN PRN Reason: PAIN Last Admin: 09/06/18 05:54 Dose: 650 mg Adapalene (Differin) 1 gm TP QPM [facility] Last Admin: 09/05/18 21:50 Dose: Not Given Albuterol Sulfate (Ventolin Aerosols) 2.5 mg INHALATION Q2H PRN PRN PRN Reason: SHORTNESS OF BREATH Last Admin: 09/06/18 07:19 Dose: 2.5 mg Benzonatate (Tessalon Perle) 100 mg PO TID PRN PRN PRN Reason: FREQUENT COUGH Guaifenesin (Mucinex) 1,200 mg PO BID [facility] Last Admin: 09/05/18 21:55 Dose: 1,200 mg Heparin Sodium (Porcine) (Heparin Na) 5,000 unit SC Q8 [facility] Last Admin: 09/06/18 05:55 Dose: 5,000 unit Piperacillin Sod/Tazobactam (Sod 3.375 gm/ Sodium Chloride) 50 mls @ 12.5 mls/hr IV Q12 [facility] Last Admin: 09/05/18 21:51 Dose: 12.5 mls/hr Lorazepam (Ativan) 2 mg PO Q2H PRN PRN; Protocol PRN Reason: CIWA score > 8 but <15 Last Admin: 09/05/18 08:07 Dose: 2 mg Lorazepam (Ativan) 2 mg PO UD PRN; Protocol PRN Reason: CIWA score >/=15. Lorazepam (Ativan) 2 mg IV Q2H PRN PRN; Protocol PRN Reason: CIWA score > 8 but <15 Last Admin: 09/04/18 19:48 Dose: 2 mg Lorazepam (Ativan) 2 mg IV UD PRN; Protocol PRN Reason: CIWA score >/=15. Magnesium Hydroxide (Milk Of Magnesia) 30 ml PO DAILY PRN PRN PRN Reason: Constipation Metoprolol Tartrate (Lopressor (Beta [place])) 50 mg PO BID [facility] Last Admin: 09/05/18 21:55 Dose: 50 mg Multivit/Ca Carb/B Cmplx/FA/Prenat (Nephrocaps, Renaphro) 1 capsule PO DAILY [facility] Last Admin: 09/05/18 09:30 Dose: 1 capsule Nifedipine (Procardia Xl) 120 mg PO DAILY [facility] Last Admin: 09/05/18 09:30 Dose: 120 mg Nutritional Formula (Nepro Carb Steady) 120 ml PO 4X/DAY [facility] Last Admin: 09/05/18 21:59 Dose: 120 ml Ondansetron HCl (Zofran) 4 mg IV Q8H PRN PRN PRN Reason: NAUSEA Last Admin: 09/05/18 13:25 Dose: 4 mg Pantoprazole Sodium (Protonix) 40 mg PO DAILY [facility] Last Admin: 09/05/18 09:30 Dose: 40 mg Sevelamer Carbonate (Renvela) 1,600 mg PO TIDCM [facility] Last Admin: 09/06/18 08:58 Dose: Not Given Sodium Chloride () 5 - 15 ml IV UD PRN PRN Reason: SALINE FLUSH Last Admin: 09/05/18 16:47 Dose: 10 ml Medical Necessity - Tobacco Use Smoking Status: Former smoker Assessment/Plan All Active Problems (Last Reviewed 09/04/18 @ 05:01 by Gio Aponte MD) Community acquired pneumonia (Acute) ESRD (end stage renal disease) on dialysis (Acute) Bacteremia (Acute) 1. Staph aureus bacteremia, no valvular lesions on transthoracic echo On IV vancomycin, ID consulted, repeat blood cultures are pending 2. Septic shock/severe sepsis secondary to CAP, admitting lactic acid in [place] was 4.8, leucocytosis is improving Repeat lactic acid is 0.8, on IV vancomycin and zosyn, 3. Acute diarrhea, c. diff negative, likely antibiotic related, will continue to monitor 4. Hypokalemia, resolved 5. ESRD on HD, dialysis today, nephrology consulted 5. Hypertension, controlled, will continue to monitor on home regimen 6. H/o sjogren's syndrome, Raynaud's disease 7. DVT PPx - Heparin SC Code Visit Inpatient E&M: 92097 Subs Hosp L2
--- NOTE | 2018-09-06 11:36 | DIALYSIS ---
Hemodialysis tx completed x 2.75 hours as ordered. Fluid removed 1,500ml. Pt tolerated tx well, remained afebrile, vitals stable throughout tx, and no change in mentation. Blpood cultures drawn with dialysis today from [facility] AV-graft. Next scheduled dialysis tx Saturday09/09/18. Verbal reprot given to [place] post tx.
[2018-09-06] MEDS: guaiFENesin 1,200 MG Tablet 1200 MG PO ×2 (12:56→22:42)
[2018-09-06] MEDS: Metoprolol Tartrate 50 MG Tablet PO ×2 (12:56→22:43)
[2018-09-06] MEDS: Folic Acid/Vitamin B Comp W-C 1 Capsule 1 CAP PO (12:57)
[2018-09-06] MEDS: Pantoprazole Sodium 40 MG Tablet PO (12:58)
[2018-09-06] MEDS: NIFEdipine 60 MG Tablet 120 MG PO (12:59)
[2018-09-06] MEDS: SEVELAMER CARBONATE 800 MG TABLET 1600 MG PO ×2 (12:59→17:59)
[2018-09-06] MEDS: Nepro Liquid 120 ML LIQUID PO ×3 (13:16→22:41)
[2018-09-06] MEDS: Benzonatate 100 MG Capsule PO (13:16)
--- NOTE | 2018-09-06 16:45 | CPS ---
Patient sleeping, PEP Therapy not done.
--- NOTE | 2018-09-06 20:12 | PCM.PN.REN ---
Patient Problems: Active and Suspected Problems (Last Reviewed 09/04/18 @ 05:01 by Gio Aponte MD) Community acquired pneumonia (Acute) ESRD (end stage renal disease) on dialysis (Acute) Bacteremia (Acute) Subjective: Following for ESRD. Pt denies CP. SOB is better. No nausea but appetite is poor. - Physical Exam General: Alert, Oriented x3 HEENT: Atraumatic, PERRLA, EOMI Oral: Moist Mucosa Neck: Supple Lungs: Diminished - at bases Cardiovascular: Normal S1, Normal S2, No murmurs Abdomen: Bowel Sounds Present, Soft, Non Tender Extremities: No edema Vital Signs Temp Pulse Resp BP Pulse Ox 98.3 F 86 18 118/73 100 09/06/18 12:51 09/06/18 16:05 09/06/18 12:51 09/06/18 12:56 09/06/18 12:51 Oxygen Flow Rate (L/min) 2 Oxygen Delivery Method Nasal Cannula Weight: 53.8 kg Body Mass Index (BMI) 21.7 Intake and Output for Last 24 Hours 09/04/18 09/05/18 09/06/18 23:59 23:59 23:59 Intake Total 480 / 480 3522 / 3522 1437 / 1437 Output Total 60 / 60 0 / 0 1500 / 1500 Balance 420 / 420 3522 / 3522 -63 / -63 Microbiology Past 72 Hours 09/04/18 17:20 Bacteria Detection (PCR) - Final Blood Culture (Wb) - Anticubital Left Staphylococcus aureus Blood Culture - Preliminary Staphylococcus aureus 09/04/18 17:20 Blood Culture - Preliminary Blood Culture (Wb) - Arm Left Staphylococcus aureus 09/04/18 09:10 Gram Stain - Final Sputum, Expectorated/Coughed Respiratory Culture - Preliminary Staphylococcus aureus 09/05/18 02:00 C. difficile DNA Amplification - Final Stool 09/04/18 09:10 Streptococcus pneumoniae Antigen (M - Final Urine, Clean Catch 09/04/18 09:10 Legionella Antigen - Final Urine, Clean Catch 09/04/18 05:05 Influenza Types A,B Direct FA (SAKINA) - Final Mucosa - Nasopharyngeal Laboratory Tests Past 24 Hrs 09/06/18 08:30 Sodium 134 L Potassium 3.7 Chloride 103 Carbon Dioxide 22.0 BUN 41 H Creatinine 6.87 H Estim Creat Clear Calc 8.92 Est GFR (MDRD) Af Amer 11 L Est GFR (MDRD) Non-Af 9 L BUN/Creatinine Ratio 6.0 L Glucose 92 Calcium 8.1 L Phosphorus 1.5 L Albumin 2.1 L Medical Necessity - Tobacco Use Smoking Status: Former smoker Assessment/Plan All Active Problems (Last Reviewed 09/04/18 @ 05:01 by Gio Aponte MD) Community acquired pneumonia (Acute) ESRD (end stage renal disease) on dialysis (Acute) Bacteremia (Acute) 1. 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 HD TTS. Dialyzed earlier today without complication. Next HD anticipated on 09/09/18. 2. Anemia. Hgb is low but stable. Continue JUANITA with HD. 3. SHPT. Phos level is 1.5. Will stop phos binder (sevelamer). Recheck phos in 2 days. 4. HTN. BP is controlled. Continue current medications. 5. Staph aureus pneumonia/BSI. No endocarditis. Antibiotic per ID and hospital medicine service.
[2018-09-07] VITALS (13 sets, daily range): BP systolic 113–125; BP diastolic 63–79; PULSE 81–93; RESP 18–20; TEMP 36.6–37.3; O2SAT 93–98
[2018-09-07] MEDS: Heparin Injection (Vial) 5,000 UNIT/ML VIAL 5000 UNIT SC ×3 (06:30→23:01)
[2018-09-07 06:53] LABS: Absolute Lymphocyte Count 1.05 X10^3/ul (0.83-4.51); Absolute Neutrophil Count 6.1 X10^3/uL (2.0-7.7); Basophil# 0.02 X10^3/uL; Basophil% 0.2 % (0-1); Eosinophil# 0.72 X10^3/uL; Eosinophils% 7.8 % (0-5); Hematocrit 28.9 % (40-54); Lymphocyte # 1.05 X10^3/ul (4.0); Lymphocyte % 11.4 % (19-41); Mean Corp Hgb Conc 31.1 g/gl (32-36); Mean Corpuscular Hgb 29.3 pg (27.0-32.0); Mean Corpuscular Volume 94.1 fL (80-94); Mean Platelet Vol. 12.9 fl (6.2-12.0); Monocyte# 1.29 X10^3/uL; Monocyte% 13.9 % (0-10); Neutrophil # 6.13 X10^3/uL (2.7-7.7); Neutrophil % 66.3 % (47-70); Platelet Count 104 K/mm3 (150-450); RBC Distribution Width CV 16.5 % (11.6-14.6); RBC Distribution Width SD 54.5 fl (35.1-43.9); Red Blood Count 3.07 M/mm3 (4.6-6.2); White Blood Count 9.3 K/mm3 (4.4-11.0)
[2018-09-07 06:59] LABS: POSITIVE COUNT NO; POSITIVE DIFFERENTIAL NO; POSITIVE MORPHOLOGY NO
[2018-09-07 07:37] LABS: Anion Gap 9 (5-15); BUN 31 mg/dL (7-18); BUN/Creat Ratio 5.8 RATIO (10-20); Calcium,Total 8.6 mg/dL (8.5-10.1); Chloride 96 mmol/L (98-107); EST Glomerular Filtration Rate 12 mL/min (>60); Est Glom Filt Rate - Afr Amer 14 mL/min (>60); Estimated Creatinine Clearance 11.56 ml/min; Glucose 85 mg/dL (74-106); Potassium 3.8 mmol/L (3.5-5.1); Sodium Level 136 mmol/L (136-145)
[2018-09-07] MEDS: Nepro Liquid 120 ML LIQUID PO ×2 (10:00→13:28)
[2018-09-07] MEDS: Pantoprazole Sodium 40 MG Tablet PO (10:00)
[2018-09-07] MEDS: Metoprolol Tartrate 50 MG Tablet PO ×2 (10:01→23:02)
[2018-09-07] MEDS: NIFEdipine 60 MG Tablet 120 MG PO (10:01)
[2018-09-07] MEDS: guaiFENesin 1,200 MG Tablet 1200 MG PO ×2 (10:01→23:01)
[2018-09-07] MEDS: Folic Acid/Vitamin B Comp W-C 1 Capsule 1 CAP PO (10:01)
[2018-09-07] MEDS: Na Biphos/Potassium Phosphate PACKET 1 PACKET PO ×3 (13:24→23:01)
[2018-09-07] MEDS: Acetaminophen 325 MG Tablet 650 MG PO (13:28)
--- NOTE | 2018-09-07 16:37 | PCM.PN.HOSP ---
Patient Problems: Active and Suspected Problems (Last Reviewed 09/04/18 @ 05:01 by Gio Aponte MD) Community acquired pneumonia (Acute) ESRD (end stage renal disease) on dialysis (Acute) Bacteremia (Acute) Subjective: Patient was seen and examined. No new complaints. He feels much improved. Remains on 2 L of oxygen. Objective: Physical exam: General: Alert, Oriented x3, Cooperative, No apparent distress, on 2L oxygen HEENT: Atraumatic, PERRLA, EOMI, Normocephalic Oral: Moist Mucosa Neck: Supple, No JVD, Negative Carotid Bruits Lungs: Diminished, no rales heard Cardiovascular: Regular rate, Regular Rhythm, Normal S1, Normal S2, Tachycardic Abdomen: Bowel Sounds Present, Soft, Non Tender, Non-Distended, No Hepato-splenomegaly Extremities: No edema Skin: No rashes, No breakdown Musculoskeletal: No Tenderness to Palpation of Joints or Extremities Lymphatic: No Cervical, Supraclavicular, or Inguinal Adenopathy Neurological: Cranial nerves II-XII grossly intact, Neuro grossly intact Psych/Mental Status: Normal Affect, Appropriate Vitals/I&O's: Vital Signs Temp Pulse Resp BP Pulse Ox 98.6 F 84 20 H 116/72 98 09/07/18 13:37 09/07/18 16:11 09/07/18 13:37 09/07/18 13:37 09/07/18 13:37 Oxygen Flow Rate (L/min) 2 Oxygen Delivery Method Nasal Cannula Weight: 53.8 kg Body Mass Index (BMI) 21.7 Intake and Output for Last 24 Hours 09/05/18 09/06/18 09/08/18 23:59 23:59 00:59 Intake Total 3522 / 3522 1437 / 1437 1859 / 1859 Output Total 0 / 0 1500 / 1500 300 / 300 Balance 3522 / 3522 -63 / -63 1559 / 1559 Microbiology Past 72 Hours 09/05/18 11:37 Blood Culture (Wb) - Anticubital Right Blood Culture - Preliminary No growth in 48 hours. 09/04/18 17:20 Blood Culture (Wb) - Anticubital Left Bacteria Detection (PCR) - Final Staphylococcus aureus 09/04/18 17:20 Blood Culture (Wb) - Anticubital Left Blood Culture - Preliminary Staphylococcus aureus 09/04/18 17:20 Blood Culture (Wb) - Arm Left Blood Culture - Final Staphylococcus aureus 09/04/18 09:10 Sputum, Expectorated/Coughed Gram Stain - Final 09/04/18 09:10 Sputum, Expectorated/Coughed Respiratory Culture - Final Staphylococcus aureus 09/05/18 02:00 Stool C. difficile DNA Amplification - Final Laboratory Results 09/07/18 05:30: WBC 9.3, RBC 3.07 L, Hgb 9.0 L, Hct 28.9 L, MCV 94.1 H, MCH 29.3, MCHC 31.1 L, RDW 16.5 H, RDW Differential 54.5 H, Plt Count 104 L, MPV 12.9 H, Immature Gran % (Auto) 0.400, Neut % (Auto) 66.3, Lymph % (Auto) 11.4 L, [place] % (Auto) 13.9 H, Eos % (Auto) 7.8 H, Baso % (Auto) 0.2, Absolute Neuts (auto) 6.1, Absolute Lymphs (auto) 1.05, Total Counted Not Reportable 09/07/18 05:30: Sodium 136, Potassium 3.8, Chloride 96 L, Carbon Dioxide 31.0, Anion Gap 9, BUN 31 H, Creatinine 5.30 H, Estim Creat Clear Calc 11.56, Est GFR (MDRD) Af Amer 14 L, Est GFR (MDRD) Non-Af 12 L, BUN/Creatinine Ratio 5.8 L, Glucose 85, Calcium 8.6, Phosphorus 1.0 L* Current Medications Acetaminophen (Tylenol) 650 mg PO Q6H PRN PRN PRN Reason: PAIN Last Admin: 09/07/18 13:28 Dose: 650 mg Adapalene (Differin) 1 gm TP QPM [facility] Last Admin: 09/06/18 22:42 Dose: Not Given Albuterol Sulfate (Ventolin Aerosols) 2.5 mg INHALATION Q2H PRN PRN PRN Reason: SHORTNESS OF BREATH Last Admin: 09/06/18 07:19 Dose: 2.5 mg Benzonatate (Tessalon Perle) 100 mg PO TID PRN PRN PRN Reason: FREQUENT COUGH Last Admin: 09/06/18 13:16 Dose: 100 mg Guaifenesin (Mucinex) 1,200 mg PO BID [facility] Last Admin: 09/07/18 10:01 Dose: 1,200 mg Heparin Sodium (Porcine) (Heparin Na) 5,000 unit SC Q8 [facility] Last Admin: 09/07/18 13:25 Dose: 5,000 unit Piperacillin Sod/Tazobactam (Sod 3.375 gm/ Sodium Chloride) 50 mls @ 12.5 mls/hr IV Q12 [facility] Last Admin: 09/07/18 10:09 Dose: 12.5 mls/hr Lorazepam (Ativan) 2 mg PO Q2H PRN PRN; Protocol PRN Reason: CIWA score > 8 but <15 Last Admin: 09/05/18 08:07 Dose: 2 mg Lorazepam (Ativan) 2 mg PO UD PRN; Protocol PRN Reason: CIWA score >/=15. Lorazepam (Ativan) 2 mg IV Q2H PRN PRN; Protocol PRN Reason: CIWA score > 8 but <15 Last Admin: 09/04/18 19:48 Dose: 2 mg Lorazepam (Ativan) 2 mg IV UD PRN; Protocol PRN Reason: CIWA score >/=15. Magnesium Hydroxide (Milk Of Magnesia) 30 ml PO DAILY PRN PRN PRN Reason: Constipation Metoprolol Tartrate (Lopressor (Beta Cary)) 50 mg PO BID [facility] Last Admin: 09/07/18 10:01 Dose: 50 mg Multivit/Ca Carb/B Cmplx/FA/Prenat (Nephrocaps, Renaphro) 1 capsule PO DAILY [facility] Last Admin: 09/07/18 10:01 Dose: 1 capsule Nifedipine (Procardia Xl) 120 mg PO DAILY [facility] Last Admin: 09/07/18 10:01 Dose: 120 mg Nutritional Formula (Nepro Carb Steady) 120 ml PO 4X/DAY [facility] Last Admin: 09/07/18 13:28 Dose: 120 ml Ondansetron HCl (Zofran) 4 mg IV Q8H PRN PRN PRN Reason: NAUSEA Last Admin: 09/05/18 13:25 Dose: 4 mg Pantoprazole Sodium (Protonix) 40 mg PO DAILY [facility] Last Admin: 09/07/18 10:00 Dose: 40 mg Potassium Phos/Sodium Phos (Neutra-Phos Packet) 1 packet PO 4X/DAY [facility] Last Admin: 09/07/18 13:40 Dose: Not Given Sodium Chloride () 5 - 15 ml IV UD PRN PRN Reason: SALINE FLUSH Last Admin: 09/05/18 16:47 Dose: 10 ml Medical Necessity - Tobacco Use Smoking Status: Former smoker Assessment/Plan All Active Problems (Last Reviewed 09/04/18 @ 05:01 by Gio Aponte MD) Community acquired pneumonia (Acute) ESRD (end stage renal disease) on dialysis (Acute) Bacteremia (Acute) 58-year-old male with past medical history of scleroderma, on hemodialysis comes in with complaints of fever and chills, transferred from [facility] ED. Patient was found to have severe sepsis/septic shock in [place] ED. he appeared to have improved remarkably next he was going to be discharged when he started complaining of fever and chills. He subsequently has been found to be bacteremic and has been managed on IV antibiotics. 1. Staph aureus bacteremia, no valvular lesions on transthoracic echo, On IV vancomycin, ID consulted, repeat blood cultures are pending Will wait recommendations on whether patient needs [place] or not 2. Septic shock/severe sepsis secondary to CAP, slowly improving, continues on IV vancomycin and Zosyn 3. Acute hypoxic respiratory insufficiency secondary to community-acquired pneumonia, on 2 L of oxygen, will continue to encourage use of incentive spirometer, wean off oxygen for SPO2 more than 94% 4. Acute diarrhea, c. diff negative, likely antibiotic related, resolved 5. Hypokalemia, resolved 6. Hypophosphatemia, off sevelamer, replaced, recheck in am 7. ESRD on HD, dialysis today, nephrology consulted 8. Hypertension, controlled, will continue to monitor on home regimen 9. H/o Scleroderma/sjogren's syndrome/Raynaud's disease 10. DVT PPx - Heparin SC Code Visit Inpatient E&M: 73169 Subs Hosp L2
--- NOTE | 2018-09-07 16:42 | PN_ITS ---
Patient Problems: Active and Suspected Problems (Last Reviewed 09/04/18 @ 05:01 by Gio Aponte MD) Community acquired pneumonia (Acute) ESRD (end stage renal disease) on dialysis (Acute) Bacteremia (Acute) Subjective: Patient was seen and examined. No new complaints. He feels much improved. Remains on 2 L of oxygen. Objective: Physical exam: General: Alert, Oriented x3, Cooperative, No apparent distress, on 2L oxygen HEENT: Atraumatic, PERRLA, EOMI, Normocephalic Oral: Moist Mucosa Neck: Supple, No JVD, Negative Carotid Bruits Lungs: Diminished, no rales heard Cardiovascular: Regular rate, Regular Rhythm, Normal S1, Normal S2, Tachycardic Abdomen: Bowel Sounds Present, Soft, Non Tender, Non-Distended, No Hepato- splenomegaly Extremities: No edema Skin: No rashes, No breakdown Musculoskeletal: No Tenderness to Palpation of Joints or Extremities Lymphatic: No Cervical, Supraclavicular, or Inguinal Adenopathy Neurological: Cranial nerves II-XII grossly intact, Neuro grossly intact Psych/Mental Status: Normal Affect, Appropriate Vitals/I&O's: Vital Signs Temp Pulse Resp BP Pulse Ox 98.6 F 84 20 H 116/72 98 09/07/18 13:37 09/07/18 16:11 09/07/18 13:37 09/07/18 13:37 09/07/18 13:37 Oxygen Flow Rate (L/min) 2 Oxygen Delivery Method Nasal Cannula Weight: 53.8 kg Body Mass Index (BMI) 21.7 Intake and Output for Last 24 Hours 09/05/18 09/06/18 09/08/18 23:59 23:59 00:59 Intake Total 3522 / 3522 1437 / 1437 1859 / 1859 Output Total 0 / 0 1500 / 1500 300 / 300 Balance 3522 / 3522 -63 / -63 1559 / 1559 Microbiology Past 72 Hours 09/05/18 11:37 Blood Culture (Wb) - Anticubital Right Blood Culture - Preliminary No growth in 48 hours. 09/04/18 17:20 Blood Culture (Wb) - Anticubital Left Bacteria Detection (PCR) - Final Staphylococcus aureus 09/04/18 17:20 Blood Culture (Wb) - Anticubital Left Blood Culture - Preliminary Staphylococcus aureus 09/04/18 17:20 Blood Culture (Wb) - Arm Left Blood Culture - Final Staphylococcus aureus 09/04/18 09:10 Sputum, Expectorated/Coughed Gram Stain - Final 09/04/18 09:10 Sputum, Expectorated/Coughed Respiratory Culture - Final Staphylococcus aureus 09/05/18 02:00 Stool C. difficile DNA Amplification - Final Laboratory Results 09/07/18 05:30: WBC 9.3, RBC 3.07 L, Hgb 9.0 L, Hct 28.9 L, MCV 94.1 H, MCH 29.3, MCHC 31.1 L, RDW 16.5 H, RDW Differential 54.5 H, Plt Count 104 L, MPV 12.9 H, Immature Gran % (Auto) 0.400, Neut % (Auto) 66.3, Lymph % (Auto) 11.4 L, [place] % (Auto) 13.9 H, Eos % (Auto) 7.8 H, Baso % (Auto) 0.2, Absolute Neuts (auto) 6.1, Absolute Lymphs (auto) 1.05, Total Counted Not Reportable 09/07/18 05:30: Sodium 136, Potassium 3.8, Chloride 96 L, Carbon Dioxide 31.0, Anion Gap 9, BUN 31 H, Creatinine 5.30 H, Estim Creat Clear Calc 11.56, Est GFR (MDRD) Af Amer 14 L, Est GFR (MDRD) Non-Af 12 L, BUN/Creatinine Ratio 5.8 L, Glucose 85, Calcium 8.6, Phosphorus 1.0 L* Current Medications Acetaminophen (Tylenol) 650 mg PO Q6H PRN PRN PRN Reason: PAIN Last Admin: 09/07/18 13:28 Dose: 650 mg Adapalene (Differin) 1 gm TP QPM [facility] Last Admin: 09/06/18 22:42 Dose: Not Given Albuterol Sulfate (Ventolin Aerosols) 2.5 mg INHALATION Q2H PRN PRN PRN Reason: SHORTNESS OF BREATH Last Admin: 09/06/18 07:19 Dose: 2.5 mg Benzonatate (Tessalon Perle) 100 mg PO TID PRN PRN PRN Reason: FREQUENT COUGH Last Admin: 09/06/18 13:16 Dose: 100 mg Guaifenesin (Mucinex) 1,200 mg PO BID [facility] Last Admin: 09/07/18 10:01 Dose: 1,200 mg Heparin Sodium (Porcine) (Heparin Na) 5,000 unit SC Q8 [facility] Last Admin: 09/07/18 13:25 Dose: 5,000 unit Piperacillin Sod/Tazobactam (Sod 3.375 gm/ Sodium Chloride) 50 mls @ 12.5 mls/hr IV Q12 [facility] Last Admin: 09/07/18 10:09 Dose: 12.5 mls/hr Lorazepam (Ativan) 2 mg PO Q2H PRN PRN; Protocol PRN Reason: CIWA score > 8 but <15 Last Admin: 09/05/18 08:07 Dose: 2 mg Lorazepam (Ativan) 2 mg PO UD PRN; Protocol PRN Reason: CIWA score >/=15. Lorazepam (Ativan) 2 mg IV Q2H PRN PRN; Protocol PRN Reason: CIWA score > 8 but <15 Last Admin: 09/04/18 19:48 Dose: 2 mg Lorazepam (Ativan) 2 mg IV UD PRN; Protocol PRN Reason: CIWA score >/=15. Magnesium Hydroxide (Milk Of Magnesia) 30 ml PO DAILY PRN PRN PRN Reason: Constipation Metoprolol Tartrate (Lopressor (Beta [place])) 50 mg PO BID [facility] Last Admin: 09/07/18 10:01 Dose: 50 mg Multivit/Ca Carb/B Cmplx/FA/Prenat (Nephrocaps, Renaphro) 1 capsule PO DAILY [facility] Last Admin: 09/07/18 10:01 Dose: 1 capsule Nifedipine (Procardia Xl) 120 mg PO DAILY [facility] Last Admin: 09/07/18 10:01 Dose: 120 mg Nutritional Formula (Nepro Carb Steady) 120 ml PO 4X/DAY [facility] Last Admin: 09/07/18 13:28 Dose: 120 ml Ondansetron HCl (Zofran) 4 mg IV Q8H PRN PRN PRN Reason: NAUSEA Last Admin: 09/05/18 13:25 Dose: 4 mg Pantoprazole Sodium (Protonix) 40 mg PO DAILY [facility] Last Admin: 09/07/18 10:00 Dose: 40 mg Potassium Phos/Sodium Phos (Neutra-Phos Packet) 1 packet PO 4X/DAY [facility] Last Admin: 09/07/18 13:40 Dose: Not Given Sodium Chloride () 5 - 15 ml IV UD PRN PRN Reason: SALINE FLUSH Last Admin: 09/05/18 16:47 Dose: 10 ml Medical Necessity - Tobacco Use Smoking Status: Former smoker Assessment/Plan All Active Problems (Last Reviewed 09/04/18 @ 05:01 by Gio Aponte MD) Community acquired pneumonia (Acute) ESRD (end stage renal disease) on dialysis (Acute) Bacteremia (Acute) 58-year-old male with past medical history of scleroderma, on hemodialysis comes in with complaints of fever and chills, transferred from [facility] ED. Patient was found to have severe sepsis/septic shock in [place] ED. he appeared to have improved remarkably next he was going to be discharged when he started complaining of fever and chills. He subsequently has been found to be bacteremic and has been managed on IV antibiotics. 1. Staph aureus bacteremia, no valvular lesions on transthoracic echo, On IV vancomycin, ID consulted, repeat blood cultures are pending Will wait recommendations on whether patient needs [place] or not 2. Septic shock/severe sepsis secondary to CAP, slowly improving, continues on IV vancomycin and Zosyn 3. Acute hypoxic respiratory insufficiency secondary to community-acquired pneumonia, on 2 L of oxygen, will continue to encourage use of incentive spirometer, wean off oxygen for SPO2 more than 94% 4. Acute diarrhea, c. diff negative, likely antibiotic related, resolved 5. Hypokalemia, resolved 6. Hypophosphatemia, off sevelamer, replaced, recheck in am 7. ESRD on HD, dialysis today, nephrology consulted 8. Hypertension, controlled, will continue to monitor on home regimen 9. H/o Scleroderma/sjogren's syndrome/Raynaud's disease 10. DVT PPx - Heparin SC Code Visit Inpatient E&M: 32641 Subs Hosp L2
[2018-09-08] VITALS (11 sets, daily range): BP systolic 113–136; BP diastolic 77–81; PULSE 79–91; RESP 18; TEMP 36.4–37.6; O2SAT 95–98
[2018-09-08] MEDS: Benzonatate 100 MG Capsule PO (04:07)
[2018-09-08] MEDS: Heparin Injection (Vial) 5,000 UNIT/ML VIAL 5000 UNIT SC ×2 (06:30→14:17)
[2018-09-08 06:34] LABS: Albumin, Serum 2.3 g/dL (3.2-5.0); BUN 43 mg/dL (7-18); BUN/Creat Ratio 6.4 RATIO (10-20); Calcium,Total 9.1 mg/dL (8.5-10.1); Chloride 96 mmol/L (98-107); Creatinine, Serum 6.73 mg/dL (0.70-1.30); EST Glomerular Filtration Rate 9 mL/min (>60); Est Glom Filt Rate - Afr Amer 11 mL/min (>60); Estimated Creatinine Clearance 9.24 ml/min; Glucose 86 mg/dL (74-106); Phosphorus 1.5 mg/dL (2.5-4.9); Potassium 4.5 mmol/L (3.5-5.1); Sodium Level 134 mmol/L (136-145)
[2018-09-08 06:45] LABS: Absolute Lymphocyte Count 1.34 X10^3/ul (0.83-4.51); Absolute Neutrophil Count 7.6 X10^3/uL (2.0-7.7); Basophil# 0.03 X10^3/uL; Basophil% 0.3 % (0-1); Eosinophil# 1.04 X10^3/uL; Hematocrit 27.8 % (40-54); Hemoglobin 8.8 g/dl (13.0-16.5); Lymphocyte # 1.34 X10^3/ul (4.0); Lymphocyte % 11.6 % (19-41); Mean Corp Hgb Conc 31.7 g/gl (32-36); Mean Corpuscular Volume 91.7 fL (80-94); Mean Platelet Vol. 13.1 fl (6.2-12.0); Monocyte# 1.51 X10^3/uL; Neutrophil % 65.5 % (47-70); Platelet Count 129 K/mm3 (150-450); RBC Distribution Width CV 16.2 % (11.6-14.6); RBC Distribution Width SD 52.2 fl (35.1-43.9); Red Blood Count 3.03 M/mm3 (4.6-6.2); White Blood Count 11.6 K/mm3 (4.4-11.0)
[2018-09-08 06:51] LABS: Differential Indicated SCAN CRITERIA MET; POSITIVE COUNT NO; POSITIVE DIFFERENTIAL YES; POSITIVE MORPHOLOGY NO
[2018-09-08] MEDS: Metoprolol Tartrate 50 MG Tablet PO ×2 (09:21→21:16)
[2018-09-08] MEDS: guaiFENesin 1,200 MG Tablet 1200 MG PO ×2 (09:21→21:16)
[2018-09-08] MEDS: Folic Acid/Vitamin B Comp W-C 1 Capsule 1 CAP PO (09:22)
[2018-09-08] MEDS: Na Biphos/Potassium Phosphate PACKET 1 PACKET PO ×4 (09:22→21:16)
[2018-09-08] MEDS: NIFEdipine 60 MG Tablet 120 MG PO (09:23)
[2018-09-08] MEDS: Pantoprazole Sodium 40 MG Tablet PO (09:23)
--- NOTE | 2018-09-08 11:21 | PCM.PN.REN ---
Patient Problems: Active and Suspected Problems (Last Reviewed 09/04/18 @ 05:01 by Gio Aponte MD) Community acquired pneumonia (Acute) ESRD (end stage renal disease) on dialysis (Acute) Bacteremia (Acute) Subjective: No nausea No vomiting. Breathing is stable - Physical Exam General: Alert, Oriented x3 HEENT: Atraumatic Oral: Moist Mucosa Neck: Supple, No JVD Lungs: Clear to auscultation, Normal air movement Cardiovascular: Regular rate, Regular Rhythm, Normal S1, Normal S2 Abdomen: Bowel Sounds Present, Soft, Non Tender, Non-Distended Extremities: No clubbing, No cyanosis, No edema Musculoskeletal: No Tenderness to Palpation of Joints or Extremities, No Muscle Wasting Lymphatic: No Cervical, Supraclavicular, or Inguinal Adenopathy Neurological: Cranial nerves II-XII grossly intact, Neuro grossly intact Psych/Mental Status: Normal Affect Vital Signs Temp Pulse Resp BP Pulse Ox 97.6 F L 91 18 124/81 H 97 09/08/18 10:10 09/08/18 10:10 09/08/18 10:10 09/08/18 10:10 09/08/18 10:10 Oxygen Flow Rate (L/min) 1 Oxygen Delivery Method Room Air Weight: 55 kg Body Mass Index (BMI) 21.7 Intake and Output for Last 24 Hours 09/06/18 09/07/18 09/08/18 22:59 23:59 23:59 Intake Total 752 / 752 Output Total 100 / 100 Balance 652 / 652 Microbiology Past 72 Hours 09/05/18 11:37 Blood Culture - Preliminary Blood Culture (Wb) - Anticubital Right No growth in 48 hours. 09/04/18 17:20 Bacteria Detection (PCR) - Final Blood Culture (Wb) - Anticubital Left Staphylococcus aureus Blood Culture - Preliminary Staphylococcus aureus 09/04/18 17:20 Blood Culture - Final Blood Culture (Wb) - Arm Left Staphylococcus aureus 09/04/18 09:10 Gram Stain - Final Sputum, Expectorated/Coughed Respiratory Culture - Final Staphylococcus aureus Laboratory Tests Past 24 Hrs 09/08/18 09/08/18 05:42 05:42 WBC 11.6 H RBC 3.03 L Hgb 8.8 L Hct 27.8 L MCV 91.7 MCH 29.0 MCHC 31.7 L RDW 16.2 H RDW Differential 52.2 H Plt Count 129 L MPV 13.1 H Immature Gran % (Auto) 0.600 Neut % (Auto) 65.5 Lymph % (Auto) 11.6 L [place] % (Auto) 13.0 H Eos % (Auto) 9.0 H Baso % (Auto) 0.3 Absolute Neuts (auto) 7.6 Absolute Lymphs (auto) 1.34 Total Counted Not Reportable Sodium 134 L Potassium 4.5 Chloride 96 L Carbon Dioxide 25.0 BUN 43 H Creatinine 6.73 H Estim Creat Clear Calc 9.24 Est GFR (MDRD) Af Amer 11 L Est GFR (MDRD) Non-Af 9 L BUN/Creatinine Ratio 6.4 L Glucose 86 Calcium 9.1 Phosphorus 1.5 L Albumin 2.3 L Medical Necessity - Tobacco Use Smoking Status: Former smoker Assessment/Plan All Active Problems (Last Reviewed 09/04/18 @ 05:01 by Gio Aponte MD) Community acquired pneumonia (Acute) ESRD (end stage renal disease) on dialysis (Acute) Bacteremia (Acute) 1. 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 HD TTS.Pt goes to [facility] HD [place]. Last HD session 09/06. Next HD anticipated on 09/09/18. 2. Anemia. Hgb is low but stable. Continue JUANITA with HD. 3. SHPT. Due to P binder. Sevelamer was stopped. P level today 1.5 . Please d/c patient without P binder 4. HTN. BP is controlled. Continue current medications. 5. Staph aureus pneumonia/BSI. No endocarditis. Antibiotic per ID and hospital medicine service. Renal team will continue to follow . Please call with any question DIANE REDMAN MD [phone]
--- NOTE | 2018-09-08 14:18 | US_ITS ---
STUDY: SUPERFICIAL ULTRASOUND - EVALUATION OF LEFT PLEURAL EFFUSION. REASON FOR EXAM: Male, 58 years old. Left pleural effusion. TECHNIQUE: A superficial ultrasound was performed with real-time and static álvarez-scale imaging. COMPARISON: None. FINDINGS: Small left pleural effusion with septations. US/Chest IMPRESSION: Small left pleural effusion with septations. Electronically Signed: Wilton Walker, at 15:54 EDT , Service support ,
--- NOTE | 2018-09-08 14:23 | PCM.CONS.GEN ---
Reason for Consult Date of Consultation: 09/08/18 Reason for Consultation: Loculated pleural effusion History of Present Illness: The patient is a 58-year-old male, with a history as outlined below, who presented from [place] emergency department on September 04 with generalized malaise, shortness of breath and a productive cough. The patient has baseline end-stage renal disease and is on hemodialysis. Subsequent plain film chest x-ray revealed evidence of left lower lobe airspace disease and a left-sided pleural effusion. Surface echocardiogram revealed normal LV size and function with an ejection fraction of 60%. The patient was placed on broad-spectrum antimicrobials. Infectious diseases was consulted to evaluate the patient. The patient's hospital course has been complicated by the presence of Staphylococcus bacteremia. AV fistula ultrasound completed on September 04 revealed a small nonvascular fluid collection superficial to the proximal graft. A CT chest was also obtained on September 05 and did reveal evidence of left lower lobe consolidation along with what appeared to be a posteriorly located loculated pleural effusion. Several other incidental nodules were also identified along with mediastinal adenopathy. The patient's overall fever curve has improved. The patient's bacteremia appears to have been cleared, as of cultures resulted on September 05. Past Medical History Past Medical History (Chronic Problems): Chronic Problems (Last Reviewed 09/04/18 @ 05:01 by Gio Aponte MD) CKD (chronic kidney disease), stage V (Chronic) Pulmonary fibrosis (Chronic) Systemic sclerosis (Chronic) Renal failure (Chronic) Raynaud disease (Chronic) Anemia (Chronic) Systemic sclerosis (Chronic) Osteoarthritis (Chronic) Hypokalemia (Chronic) HTN (hypertension) (Chronic) Generalized edema (Chronic) CKD (chronic kidney disease), stage V (Chronic) Anemia (Chronic) Alcohol abuse (Chronic) Acute renal failure syndrome (Chronic) Medical History: Medical History (Last Reviewed 09/04/18 @ 05:01 by Gio Aponte MD) Pulmonary fibrosis (Chronic) J84.10 Systemic sclerosis (Chronic) M34.9 Renal failure (Chronic) N19 Raynaud disease (Chronic) I73.00 Anemia (Chronic) D64.9 Allergies aspirin Allergy (Verified 09/04/18 03:33) Itching lisinopril Allergy (Verified 09/04/18 03:33) Itching valsartan Allergy (Verified 09/04/18 03:33) Itching Home Medications: Ambulatory Orders Medication Instructions Recorded Benzonatate [Tessalon Perle] 100 mg PO TID PRN PRN 07/28/13 Sevelamer Carbonate [Renvela] 1,600 mg PO TID 07/28/13 acetaminophen 325 mg capsule 650 mg PO Q6H PRN 02/26/18 adapalene 0.3 % topical gel 1 applic TOPICAL QPM 02/26/18 albuterol sulfate HFA 90 1 puff INHALATION Q6H PRN 02/26/18 mcg/actuation aerosol inhaler nifedipine ER 60 mg 120 mg PO DAILY #180 tab 04/11/18 tablet,extended release Amox/Clavulanate Tablet [Augmentin 500 mg PO DAILY #7 tablet 09/04/18 Tablet] Folic Acid/Vit B Complex and C 1 tab PO DAILY 09/04/18 [Renal Vitamin Tablet] Guaifenesin [Mucinex] 600 mg PO DAILY PRN 09/04/18 Metoprolol Tartrate [Lopressor 50 mg PO BID 09/04/18 (beta yenny)] Nepro Liquid [Nepro Carb Steady] 120 ml PO 4X/DAY #100 liquid 09/04/18 Pantoprazole Sodium 40 mg PO DAILY 09/04/18 Surgical History: - - Dialysis fistula Lives: Spouse/ Significant Other Smoking Status: Former smoker Alcohol: Occasional - *Family History Maternal History Items: - - He denies any paternal or maternal medical history except that he reported that 2 of his brothers had kidney stones. Paternal History Items: - - He denies any paternal or maternal medical history except that he reported that 2 of his brothers had kidney stones. Review of Systems Constitutional: Denies: Chills, Fever Eyes: Denies: Blurred vision, Double vision HEENT: Denies: Head Aches, Sinus Congestion, Sinus Drainage Cardiovascular: Denies: Chest Pain, Palpitations Respiratory: Denies: Shortness of Breath Gastrointestinal: Denies: Abdominal Pain, Nausea, Vomiting Genitourinary: Denies: Dysuria Musculoskeletal: Denies: Joint Pain, Joint Tenderness Skin: Reports: - - Boil/Fluid collection Neurological: Denies: Numbness, Tingling, Focal weakness Psychiatric: Denies: Anxiety, Depression, Homicidal Ideations, Suicidal Ideations Hematologic/ Lymphatic: Denies: Easy Bruising, Easy Bleeding Patient Problems: Active and Suspected Problems (Last Reviewed 09/04/18 @ 05:01 by Gio Aponte MD) Community acquired pneumonia (Acute) ESRD (end stage renal disease) on dialysis (Acute) Bacteremia (Acute) Problem with dialysis access (Acute) Objective: The patient's most recent lab work, culture data and imaging studies have all been personally reviewed. - Physical Exam General: Alert, Cooperative, No apparent distress HEENT: Atraumatic, PERRLA, Normocephalic Oral: No Gingival or Mucosal Lesions/ Ulcerations Neck: Supple, No Nodes, Trachea Midline Lungs: No rhonchi, No wheeze, No rales, Diminished Cardiovascular: Regular rate, Regular Rhythm, Normal S1, Normal S2 Abdomen: Bowel Sounds Present, Soft, Non Tender Extremities: No clubbing, No cyanosis, No edema Skin: - - Localized fluid collecion/boil overlying RUE fistula Lymphatic: No Cervical, Supraclavicular, or Inguinal Adenopathy Neurological: Cranial nerves II-XII grossly intact, Neuro grossly intact Psych/Mental Status: Normal Affect, Appropriate Vital Signs Temp Pulse Resp BP Pulse Ox 36.4 C L 91 18 124/81 H 97 09/08/18 10:10 09/08/18 10:10 09/08/18 10:10 09/08/18 10:10 09/08/18 10:10 Oxygen Flow Rate (L/min) 1 Oxygen Delivery Method Room Air Weight: 121 lb 4.068 oz Body Mass Index (BMI) 21.7 Intake and Output for Last 24 Hours 09/06/18 09/07/18 09/08/18 22:59 23:59 23:59 Intake Total 752 / 752 Output Total 100 / 100 Balance 652 / 652 Microbiology Past 72 Hours 09/05/18 11:37 Blood Culture - Preliminary Blood Culture (Wb) - Anticubital Right No growth in 48 hours. 09/04/18 17:20 Bacteria Detection (PCR) - Final Blood Culture (Wb) - Anticubital Left Staphylococcus aureus Blood Culture - Preliminary Staphylococcus aureus 09/04/18 17:20 Blood Culture - Final Blood Culture (Wb) - Arm Left Staphylococcus aureus 09/04/18 09:10 Gram Stain - Final Sputum, Expectorated/Coughed Respiratory Culture - Final Staphylococcus aureus Laboratory Tests Past 24 Hrs 09/08/18 09/08/18 05:42 05:42 WBC 11.6 H RBC 3.03 L Hgb 8.8 L Hct 27.8 L MCV 91.7 MCH 29.0 MCHC 31.7 L RDW 16.2 H RDW Differential 52.2 H Plt Count 129 L MPV 13.1 H Immature Gran % (Auto) 0.600 Neut % (Auto) 65.5 Lymph % (Auto) 11.6 L Steele % (Auto) 13.0 H Eos % (Auto) 9.0 H Baso % (Auto) 0.3 Absolute Neuts (auto) 7.6 Absolute Lymphs (auto) 1.34 Total Counted Not Reportable Sodium 134 L Potassium 4.5 Chloride 96 L Carbon Dioxide 25.0 BUN 43 H Creatinine 6.73 H Estim Creat Clear Calc 9.24 Est GFR (MDRD) Af Amer 11 L Est GFR (MDRD) Non-Af 9 L BUN/Creatinine Ratio 6.4 L Glucose 86 Calcium 9.1 Phosphorus 1.5 L Albumin 2.3 L Clinical Impression(s) from Imaging Studies Chest X-Ray 09/05/18 11:24 IMPRESSION: Left lower lobe infiltration and small left pleural effusion. Electronically Signed: Wilton Walker, at 11:53 EST , Service support , Chest CT 09/05/18 15:58 IMPRESSION: Atelectasis and/or infiltrate in the left lower lobe. Cannot exclude neoplasm. Small probably loculated effusion in the posterior lower left hemithorax. Nodules in the right and left apices as described, recommend follow-up in 4-6 months. Suspicious upper mediastinal adenopathy. Ectasia of the ascending aorta. Electronically Signed: Peyman Crum MD at 20:41 EST , Service support , Assessment/Plan All Active Problems (Last Reviewed 09/04/18 @ 05:01 by Gio Aponte MD) Community acquired pneumonia (Acute) ESRD (end stage renal disease) on dialysis (Acute) Bacteremia (Acute) Problem with dialysis access (Acute) RECOMMENDATIONS: 1. Obtain dedicated thoracic ultrasound of the patient's left hemithorax. 2. Continue to wean supplemental oxygen to maintain saturations at or above 90%. 3. Encourage incentive spirometer use and mobilize patient as tolerated. 4. Consider drainage of the localized fluid collection adjacent to the patient's fistula site. IMPRESSIONS: 1. Acute hypoxemic respiratory insufficiency secondary to staphylococcal pneumonia The patient appears to be improving symptomatically and is currently maintaining appropriate oxygen saturations on 1 L/min. Given the questionable nature of the patient's left-sided pleural effusion, will obtain dedicated thoracic ultrasound to further delineate the complicated nature of the patient's pleural effusion. In the interim, encourage incentive spirometer use and mobilize patient as tolerated. Wean supplemental oxygen to maintain saturations at or above 90%. 2. Sepsis secondary to #1 and staphylococcal bacteremia Plan to continue antibiotics per ID recommendations. Given the localized fluid collection/boil noted over the patient's right upper extremity fistula site, may need to consider some form of drainage procedure. 3. End-stage renal disease on hemodialysis Continue hemodialysis support per nephrology recommendations. This note was generated with [employer] dictation software. It may contain incorrect words, spelling, and punctuation that were not noted in checking the note before signing. Code Visit Inpatient E&M: 09716 Init Hosp L3
[2018-09-08] MEDS: Cefazolin 1 GM/50 ML BAG IV (14:45)
--- NOTE | 2018-09-08 16:31 | PCM.PN.ID ---
Patient Problems: Active and Suspected Problems (Last Reviewed 09/04/18 @ 05:01 by Gio Aponte MD) Community acquired pneumonia (Acute) ESRD (end stage renal disease) on dialysis (Acute) Bacteremia (Acute) Subjective: Cough and breathing improved. No fever, feeling better. Now with progressive swelling and redness over RUE graft. - Physical Exam General: Alert, Cooperative, No apparent distress Lungs: Clear to auscultation, Normal air movement Cardiovascular: Regular rate, Regular Rhythm, Murmur Abdomen: Soft, Non Tender, Non-Distended Skin: - - RUE graft with enlarging red pustule Vital Signs Temp Pulse Resp BP Pulse Ox 97.6 F L 91 18 124/81 H 97 09/08/18 10:10 09/08/18 10:10 09/08/18 10:10 09/08/18 10:10 09/08/18 10:10 Oxygen Flow Rate (L/min) 1 Oxygen Delivery Method Room Air Weight: 55 kg Body Mass Index (BMI) 21.7 Intake and Output for Last 24 Hours 09/06/18 09/07/18 09/08/18 22:59 23:59 23:59 Intake Total 752 / 752 Output Total 100 / 100 Balance 652 / 652 Microbiology Past 72 Hours 09/05/18 11:37 Blood Culture - Preliminary Blood Culture (Wb) - Anticubital Right No growth in 48 hours. 09/04/18 17:20 Bacteria Detection (PCR) - Final Blood Culture (Wb) - Anticubital Left Staphylococcus aureus Blood Culture - Preliminary Staphylococcus aureus 09/04/18 17:20 Blood Culture - Final Blood Culture (Wb) - Arm Left Staphylococcus aureus 09/04/18 09:10 Gram Stain - Final Sputum, Expectorated/Coughed Respiratory Culture - Final Staphylococcus aureus Laboratory Tests Past 24 Hrs 09/08/18 09/08/18 05:42 05:42 WBC 11.6 H RBC 3.03 L Hgb 8.8 L Hct 27.8 L MCV 91.7 MCH 29.0 MCHC 31.7 L RDW 16.2 H RDW Differential 52.2 H Plt Count 129 L MPV 13.1 H Immature Gran % (Auto) 0.600 Neut % (Auto) 65.5 Lymph % (Auto) 11.6 L [place] % (Auto) 13.0 H Eos % (Auto) 9.0 H Baso % (Auto) 0.3 Absolute Neuts (auto) 7.6 Absolute Lymphs (auto) 1.34 Total Counted Not Reportable Sodium 134 L Potassium 4.5 Chloride 96 L Carbon Dioxide 25.0 BUN 43 H Creatinine 6.73 H Estim Creat Clear Calc 9.24 Est GFR (MDRD) Af Amer 11 L Est GFR (MDRD) Non-Af 9 L BUN/Creatinine Ratio 6.4 L Glucose 86 Calcium 9.1 Phosphorus 1.5 L Albumin 2.3 L Medical Necessity - Tobacco Use Smoking Status: Former smoker Route of nutrition/ use of supplements: [] Nutritional Intake: [] IV Site: [] Luther Catheter: [] - Assessment/Plan Antibiotics: [] Assessment/Plan: [] Active and Suspected Problems (Last Reviewed 09/04/18 @ 05:01 by Gio Aponte MD) Community acquired pneumonia (Acute) ESRD (end stage renal disease) on dialysis (Acute) MSSA bacteremia, likely pneumonia as source - concern for graft and heart involvement. Narrow abx to cefazolin. Consult pulm for loculated fluid on chest CT. Consult Dr. Rivers given likely abscess on graft. Will order BROOKLYN. Repeat bcx neg so far. Will follow, d/w Dr. Jose.
--- NOTE | 2018-09-08 16:41 | PN_ITS ---
Patient Problems: Active and Suspected Problems (Last Reviewed 09/04/18 @ 05:01 by Gio Aponte MD) Community acquired pneumonia (Acute) ESRD (end stage renal disease) on dialysis (Acute) Bacteremia (Acute) Subjective: The patient is a 58-year-old male with a past medical history of chronic kidney disease stage V on hemodialysis, pulmonary fibrosis, systemic sclerosis, Raynaud's disease, osteoarthritis, hypertension, alcohol abuse and chronic anemia who presented to the emergency department at [facility] with c/o ch ills and cough productive of green/yellow sputum. Chest x-ray showed either a small pleural effusion or consolidation in the left base. White blood cell count was 15.9 and the lactic acid was 4.8. BUN was 48 and the creatinine was 8.3. He was transferred to [facility] for tx of possible pneumonia and for HD. He is a pt of Dr. George. He was continued on azithromycin and ceftriaxone at admission and received his first doses at the [facility] emergency department. Sputum and blood cultures initially were positive for methicillin sensitive staph aureus area a repeat blood culture on 09/05/2018 had no growth in 48 hours. The results of a repeat blood culture on 09/06/2018 are still pending. Rapid influenza swab was negative. All events of the past 24 hours of been reviewed. Dr. Rivers has been consulted for possible infection/abscess of the AV fistula and Dr. Jose has been consulted for possible loculated Left pleural effusion. Dr. Salguero has ordered a BROOKLYN to evaluate for endocarditis. He has been afebrile for 72 hours. Vital signs are stable. He is 97% saturated on room air. White blood cell count today is 11.6 with 65.5% neutrophils. There are 9% eosinophils. Sodium is mildly decreased at 134 and the potassium is 4.5. Phosphorus is very low at 1.5 despite supplementation with Neutra-Phos ordered on 09/07/2018. He denies CP, SOB, N/V, lightheadedness. - Physical Exam General: Alert, Oriented x3, Cooperative, No apparent distress HEENT: Atraumatic, PERRLA, EOMI, Normocephalic Oral: Moist Mucosa Neck: Supple, No JVD, No Nodes, Trachea Midline Lungs: Clear to auscultation, No rhonchi, No wheeze, No rales, Diminished, - - Not tachypneic at rest, no accessory muscle use and no conversational dyspnea Cardiovascular: Regular rate, Regular Rhythm, Normal S1, Normal S2, No rub note d, No Gallop Abdomen: Bowel Sounds Present, Soft, Non Tender, Non-Distended Extremities: No clubbing, No cyanosis, No edema, - - there is a pustule present on the distal end of the AV fistula in the RUE. the fistula has a good thrill Skin: No rashes, No breakdown Neurological: Cranial nerves II-XII grossly intact, Neuro grossly intact Psych/Mental Status: Normal Affect, Appropriate Vital Signs Temp Pulse Resp BP Pulse Ox 97.6 F L 91 18 124/81 H 97 09/08/18 10:10 09/08/18 10:10 09/08/18 10:10 09/08/18 10:10 09/08/18 10:10 Oxygen Flow Rate (L/min) 1 Oxygen Delivery Method Room Air Weight: 121 lb 4.068 oz Body Mass Index (BMI) 21.7 Intake and Output for Last 24 Hours 09/06/18 09/07/18 09/08/18 22:59 23:59 23:59 Intake Total 752 / 752 Output Total 100 / 100 Balance 652 / 652 Microbiology Past 72 Hours 09/05/18 11:37 Blood Culture - Preliminary Blood Culture (Wb) - Anticubital Right No growth in 48 hours. 09/04/18 17:20 Bacteria Detection (PCR) - Final Blood Culture (Wb) - Anticubital Left Staphylococcus aureus Blood Culture - Preliminary Staphylococcus aureus 09/04/18 17:20 Blood Culture - Final Blood Culture (Wb) - Arm Left Staphylococcus aureus 09/04/18 09:10 Gram Stain - Final Sputum, Expectorated/Coughed Respiratory Culture - Final Staphylococcus aureus Laboratory Tests Past 24 Hrs 09/08/18 09/08/18 05:42 05:42 WBC 11.6 H RBC 3.03 L Hgb 8.8 L Hct 27.8 L MCV 91.7 MCH 29.0 MCHC 31.7 L RDW 16.2 H RDW Differential 52.2 H Plt Count 129 L MPV 13.1 H Immature Gran % (Auto) 0.600 Neut % (Auto) 65.5 Lymph % (Auto) 11.6 L [place] % (Auto) 13.0 H Eos % (Auto) 9.0 H Baso % (Auto) 0.3 Absolute Neuts (auto) 7.6 Absolute Lymphs (auto) 1.34 Total Counted Not Reportable Sodium 134 L Potassium 4.5 Chloride 96 L Carbon Dioxide 25.0 BUN 43 H Creatinine 6.73 H Estim Creat Clear Calc 9.24 Est GFR (MDRD) Af Amer 11 L Est GFR (MDRD) Non-Af 9 L BUN/Creatinine Ratio 6.4 L Glucose 86 Calcium 9.1 Phosphorus 1.5 L Albumin 2.3 L Medical Necessity - Tobacco Use Smoking Status: Former smoker Assessment/Plan All Active Problems (Last Reviewed 09/04/18 @ 05:01 by Gio Aponte MD) Community acquired pneumonia (Acute) ESRD (end stage renal disease) on dialysis (Acute) Bacteremia (Acute) Impressions 1. Severe sepsis secondary to community-acquired pneumonia secondary to MSSA 2. MSSA bacteremia 3. possible infected AV fistula with pustule present - Dr. Salguero has consulted Dr. Rivers to evaluate 4. Suspected loculated left pleural effusion-possible empyema 5. End-stage renal disease on hemodialysis 6. Hypertension 7. Scleroderma/Sjogren's syndrome/Raynaud's disease 8. Hypophosphatemia 9. Hypokalemia 10. Anemia of chronic renal failure 11. Thrombocytopenia 12. Hyponatremia 13. Community-acquired pneumonia I reviewed Dr. Salguero's note from today and also Dr. Jose's. I appreciate their input. There is concern for involvement of the AV fistula and the heart and BROOKLYN has been ordered. Repeat blood cultures have been negative so far. Dr. Rivers has been consulted regarding the abscess on the graft. Thoracic ultrasound has been ordered to evaluate the left side pleural effusion. Continue Neutra-Phos Renal management by [facility] Transition to Ancef by Dr. Salguero Code Visit Inpatient E&M: 72732 Subs Hosp L2
--- NOTE | 2018-09-08 19:22 | PCA ---
SENT A REQUEST FOR MEDICAL RECORDS FOR SHAKIR MADERA PER DOC CEBUL FOR FISTULA REPORTS
[2018-09-08] MEDS: Acetaminophen 325 MG Tablet 650 MG PO (20:19)
[2018-09-09] VITALS (22 sets, daily range): BP systolic 136–172; BP diastolic 82–99; PULSE 60–100; RESP 16–20; TEMP 36.8–38.1; O2SAT 92–99; BMI 21.9
--- NOTE | 2018-09-09 05:36 | PCM.CONS.GEN ---
Problem List (1) Problem with dialysis access Status: Acute Qualifiers: Encounter type: initial encounter Qualified Code(s): T82.898A - Other specified complication of vascular prosthetic devices, implants and grafts, initial encounter Reason for Consult Date of Consultation: 09/09/18 History of Present Illness: The patient is a 58 year old M who was admitted to the [facility] on September 04, 2018. The patient presented with complaints of chilling and shortness of breath. He was transferred from [facility] to [place]. Dr Fuentes from nephrology provided consultation. The patient was felt to be septic likely from pneumonia. On September 05, 2018 a right upper extremity duplex analysis demonstrated a high flow AV graft with fluid collection. Dr. Salguero was consulted same day and he had concerns regarding graft and cardiac involvement as well as possible effusion empyema. On September 08, 2018 there was felt to be progressive swelling and redness over the right upper extremity dialysis graft and consultation was requested today. It would appear that all of the patient's access procedures have been performed by Dr. Rigo Wiggins at [facility]. Nov 24 2014 there was an angioplasty of her left axillary stenosis and left subclavian innominate junction stenosis. January 07, 2015 Dr. Wiggins placed a 14 x 60 mm Wallstent innominate vein and then also placed a 7 x 50 mm viable on stent grafting left upper extremity but this was an attempt to salvage her left upper extremity fistula but apparently during the procedure there was problems and disruption of the previously placed stent and actual acute thrombosis of the fistula because during the procedure that could not be salvaged. I have records dating March 04, [address] Wiggins then placed a 4-7 mm tapered propaten graft from the right brachial artery to the right axillary vein. The patient states that he is previously had bilateral chest/neck hemodialysis catheters. He states he has not had any catheters in his groin or any fistula or graft in his groin On September 07, 2018 his white blood cell count was 9.3 on September 08 it had increased to 11.6. As of September 08 his BUN is 43 and creatinine 6.73. Previously obtained blood cultures demonstrate Staphylococcus aureus sensitive to doxycycline daptomycin and clindamycin There is ongoing question regarding loculated left pleural effusion possible empyema. Complicating features is that the patient has scleroderma/Sjogren's syndrome and Raynaud's Disease Past Medical History Past Medical History (Chronic Problems): Chronic Problems (Last Reviewed 09/04/18 @ 05:01 by Gio Aponte MD) CKD (chronic kidney disease), stage V (Chronic) Pulmonary fibrosis (Chronic) Systemic sclerosis (Chronic) Renal failure (Chronic) Raynaud disease (Chronic) Anemia (Chronic) Systemic sclerosis (Chronic) Osteoarthritis (Chronic) Hypokalemia (Chronic) HTN (hypertension) (Chronic) Generalized edema (Chronic) CKD (chronic kidney disease), stage V (Chronic) Anemia (Chronic) Alcohol abuse (Chronic) Acute renal failure syndrome (Chronic) Medical History: Medical History (Last Reviewed 09/04/18 @ 05:01 by Gio Aponte MD) Pulmonary fibrosis (Chronic) J84.10 Systemic sclerosis (Chronic) M34.9 Renal failure (Chronic) N19 Raynaud disease (Chronic) I73.00 Anemia (Chronic) D64.9 Allergies aspirin Allergy (Verified 09/04/18 03:33) Itching lisinopril Allergy (Verified 09/04/18 03:33) Itching valsartan Allergy (Verified 09/04/18 03:33) Itching Home Medications: Ambulatory Orders Medication Instructions Recorded Benzonatate [Tessalon Perle] 100 mg PO TID PRN PRN 07/28/13 Sevelamer Carbonate [Renvela] 1,600 mg PO TID 07/28/13 acetaminophen 325 mg capsule 650 mg PO Q6H PRN 02/26/18 adapalene 0.3 % topical gel 1 applic TOPICAL QPM 02/26/18 albuterol sulfate HFA 90 1 puff INHALATION Q6H PRN 02/26/18 mcg/actuation aerosol inhaler nifedipine ER 60 mg 120 mg PO DAILY #180 tab 04/11/18 tablet,extended release Amox/Clavulanate Tablet [Augmentin 500 mg PO DAILY #7 tablet 09/04/18 Tablet] Folic Acid/Vit B Complex and C 1 tab PO DAILY 09/04/18 [Renal Vitamin Tablet] Guaifenesin [Mucinex] 600 mg PO DAILY PRN 09/04/18 Metoprolol Tartrate [Lopressor 50 mg PO BID 09/04/18 (beta yenny)] Nepro Liquid [Nepro Carb Steady] 120 ml PO 4X/DAY #100 liquid 09/04/18 Pantoprazole Sodium 40 mg PO DAILY 09/04/18 Surgical History: - - Dialysis fistula Lives: Spouse/ Significant Other Smoking Status: Former smoker Alcohol: Occasional - *Family History Maternal History Items: - - He denies any paternal or maternal medical history except that he reported that 2 of his brothers had kidney stones. Paternal History Items: - - He denies any paternal or maternal medical history except that he reported that 2 of his brothers had kidney stones. Review of Systems Constitutional: Reports: Anorexia, Chills, Fever Respiratory: Reports: Cough, Shortness of Breath Gastrointestinal: Denies: Abdominal Pain Musculoskeletal: Reports: Arm Pain Patient Problems: Active and Suspected Problems (Last Reviewed 09/04/18 @ 05:01 by Gio Aponte MD) Community acquired pneumonia (Acute) ESRD (end stage renal disease) on dialysis (Acute) Bacteremia (Acute) Problem with dialysis access (Acute) - Physical Exam General: Alert, Oriented x3, Cooperative Oral: Moist Mucosa Neck: - - Carotids are 3+ no bruit Lungs: - - Decreased respiratory excursion with cough stimulated. Clear apices Cardiovascular: Regular rate, Regular Rhythm Abdomen: Soft, Non Tender Extremities: - - Right upper extremity demonstrates significant induration fluctuance swelling erythema overlying the proximal right extremity AV graft with purulence noted no drainage There is venous distention proximal right upper arm. The right extremity AV graft has a pulse and bruit Neurological: - - Patient is alert aware of his situation and place Psych/Mental Status: Normal Affect Vital Signs Temp Pulse Resp BP Pulse Ox 98.7 F 78 16 142/82 H 96 09/09/18 02:12 09/09/18 02:12 09/09/18 02:12 09/09/18 02:12 09/09/18 02:12 Oxygen Flow Rate (L/min) 1 Oxygen Delivery Method Room Air Weight: 121 lb 4.068 oz Body Mass Index (BMI) 21.7 Intake and Output for Last 24 Hours 09/07/18 09/08/18 09/09/18 23:59 23:59 23:59 Intake Total 752 / 752 528 / 528 Output Total 100 / 100 Balance 652 / 652 528 / 528 Microbiology Past 72 Hours 09/05/18 11:37 Blood Culture - Preliminary Blood Culture (Wb) - Anticubital Right No growth in 48 hours. 09/04/18 17:20 Bacteria Detection (PCR) - Final Blood Culture (Wb) - Anticubital Left Staphylococcus aureus Blood Culture - Preliminary Staphylococcus aureus 09/04/18 17:20 Blood Culture - Final Blood Culture (Wb) - Arm Left Staphylococcus aureus 09/04/18 09:10 Gram Stain - Final Sputum, Expectorated/Coughed Respiratory Culture - Final Staphylococcus aureus Laboratory Tests Past 24 Hrs 09/08/18 09/08/18 05:42 05:42 WBC 11.6 H RBC 3.03 L Hgb 8.8 L Hct 27.8 L MCV 91.7 MCH 29.0 MCHC 31.7 L RDW 16.2 H RDW Differential 52.2 H Plt Count 129 L MPV 13.1 H Immature Gran % (Auto) 0.600 Neut % (Auto) 65.5 Lymph % (Auto) 11.6 L [place] % (Auto) 13.0 H Eos % (Auto) 9.0 H Baso % (Auto) 0.3 Absolute Neuts (auto) 7.6 Absolute Lymphs (auto) 1.34 Total Counted Not Reportable Sodium 134 L Potassium 4.5 Chloride 96 L Carbon Dioxide 25.0 BUN 43 H Creatinine 6.73 H Estim Creat Clear Calc 9.24 Est GFR (MDRD) Af Amer 11 L Est GFR (MDRD) Non-Af 9 L BUN/Creatinine Ratio 6.4 L Glucose 86 Calcium 9.1 Phosphorus 1.5 L Albumin 2.3 L Assessment/Plan All Active Problems (Last Reviewed 09/04/18 @ 05:01 by Gio Aponte MD) Community acquired pneumonia (Acute) ESRD (end stage renal disease) on dialysis (Acute) Bacteremia (Acute) Problem with dialysis access (Acute) 58-year-old gentleman with previously placed right upper extremity AV graft now with likely staph infection located over the proximal portion of the graft. The patient has history of thrombosed left upper extremity fistula with stent grafts placed in that location. He has history of completely occluded innominate treated with a Wallstent. I believe that it is reasonable to perform a incision and drainage overlying the proximal portion of this graft. Unfortunately there would be long-term concerns as to whether the graft can be salvaged. I recommend performing a incision and drainage of this infected area in the operating room today. Regarding more long-term access issues and treatment he can likely be referred back to his surgeon of record Dr. Wiggins I appreciate the opportunity of assisting with the surgical care Wayne Rivers M.D., F.A.C.S.
[2018-09-09 07:05] LABS: Absolute Lymphocyte Count 1.16 X10^3/ul (0.83-4.51); Absolute Neutrophil Count 6.8 X10^3/uL (2.0-7.7); Basophil# 0.05 X10^3/uL; Basophil% 0.5 % (0-1); Eosinophils% 8.3 % (0-5); Hematocrit 29.7 % (40-54); Hemoglobin 9.5 g/dl (13.0-16.5); Lymphocyte # 1.16 X10^3/ul (4.0); Lymphocyte % 10.6 % (19-41); Mean Corpuscular Hgb 29.1 pg (27.0-32.0); Mean Corpuscular Volume 90.8 fL (80-94); Mean Platelet Vol. 11.7 fl (6.2-12.0); Monocyte# 1.87 X10^3/uL; Monocyte% 17.2 % (0-10); Neutrophil # 6.82 X10^3/uL (2.7-7.7); Neutrophil % 62.5 % (47-70); Platelet Count 196 K/mm3 (150-450); RBC Distribution Width CV 17.1 % (11.6-14.6); RBC Distribution Width SD 56.2 fl (35.1-43.9); Red Blood Count 3.27 M/mm3 (4.6-6.2); White Blood Count 10.9 K/mm3 (4.4-11.0)
[2018-09-09 07:07] LABS: Differential Indicated SCAN CRITERIA MET; POSITIVE COUNT NO; POSITIVE DIFFERENTIAL YES; POSITIVE MORPHOLOGY NO
[2018-09-09 07:19] LABS: International Normalized Ratio 1.1; Prothrombin Time (Protime)PT. 14.3 SECONDS (11.7-14.9)
--- NOTE | 2018-09-09 07:19 | PN_ITS ---
Patient Problems: Active and Suspected Problems (Last Reviewed 09/04/18 @ 05:01 by Gio Aponte MD) Community acquired pneumonia (Acute) ESRD (end stage renal disease) on dialysis (Acute) Bacteremia (Acute) Problem with dialysis access (Acute) Subjective: The patient was seen and examined at the bedside this morning. Events from the last 24 hours have been reviewed. The patient is currently afebrile, hemodynamically stable and maintaining appropriate oxygen saturations on room air. There are tentative plans for the patient to be taken to the OR later this morning for surgical debridement of his right upper extremity abscess. Objective: The patient's most recent lab work, culture data and imaging studies have all been personally reviewed. Left-sided thoracic ultrasound revealed a small pleural effusions with internal septations. Preliminary blood culture from September 05 continue to demonstrate gram-positive cocci in clusters. Repeat blood cultures are currently pending. - Physical Exam General: Alert, Cooperative, No apparent distress HEENT: Atraumatic, PERRLA, Normocephalic Oral: No Gingival or Mucosal Lesions/ Ulcerations Neck: Supple, No Nodes, Trachea Midline Lungs: No rhonchi, No wheeze, No rales, Diminished Cardiovascular: Regular rate, Regular Rhythm, Normal S1, Normal S2, No murmurs Abdomen: Bowel Sounds Present, Soft, Non Tender, Non-Distended Extremities: No clubbing, No cyanosis, No edema Skin: - - Perivascular abscess localized in the right upper extremity Musculoskeletal: No Muscle Wasting Lymphatic: No Cervical, Supraclavicular, or Inguinal Adenopathy Neurological: Neuro grossly intact Psych/Mental Status: Normal Affect, Appropriate Vital Signs Temp Pulse Resp BP Pulse Ox 37.1 C 86 16 142/82 H 96 09/09/18 02:12 09/09/18 03:57 09/09/18 02:12 09/09/18 02:12 09/09/18 02:12 Oxygen Flow Rate (L/min) 1 Oxygen Delivery Method Room Air Weight: 119 lb 7.849 oz Body Mass Index (BMI) 21.7 Intake and Output for Last 24 Hours 09/07/18 09/08/18 09/09/18 23:59 23:59 23:59 Intake Total 752 / 752 608 / 608 Output Total 100 / 100 Balance 652 / 652 608 / 608 Microbiology Past 72 Hours 09/05/18 11:37 Blood Culture - Preliminary Blood Culture (Wb) - Anticubital Right No growth in 48 hours. 09/04/18 17:20 Bacteria Detection (PCR) - Final Blood Culture (Wb) - Anticubital Left Staphylococcus aureus Blood Culture - Preliminary Staphylococcus aureus 09/04/18 17:20 Blood Culture - Final Blood Culture (Wb) - Arm Left Staphylococcus aureus 09/04/18 09:10 Gram Stain - Final Sputum, Expectorated/Coughed Respiratory Culture - Final Staphylococcus aureus Laboratory Tests Past 24 Hrs 09/09/18 09/09/18 09/09/18 06:20 06:20 06:20 WBC 10.9 RBC 3.27 L Hgb 9.5 L Hct 29.7 L MCV 90.8 MCH 29.1 MCHC 32.0 RDW 17.1 H RDW Differential 56.2 H Plt Count 196 MPV 11.7 Immature Gran % (Auto) 0.900 Neut % (Auto) 62.5 Lymph % (Auto) 10.6 L [place] % (Auto) 17.2 H Eos % (Auto) 8.3 H Baso % (Auto) 0.5 Absolute Neuts (auto) 6.8 Absolute Lymphs (auto) 1.16 Total Counted Pending PT Pending INR Pending APTT Pending Sodium Pending Potassium Pending Chloride Pending Carbon Dioxide Pending Anion Gap Pending BUN Pending Creatinine Pending Est GFR (MDRD) Af Amer Pending Est GFR (MDRD) Non-Af Pending BUN/Creatinine Ratio Pending Glucose Pending Calcium Pending Total Bilirubin Pending Direct Bilirubin Pending AST Pending ALT Pending Alkaline Phosphatase Pending Total Protein Pending Albumin Pending Clinical Impression(s) from Imaging Studies Chest X-Ray 09/05/18 11:24 IMPRESSION: Left lower lobe infiltration and small left pleural effusion. Electronically Signed: Wilton Walker, at 11:53 EST , Service support , Chest CT 09/05/18 15:58 IMPRESSION: Atelectasis and/or infiltrate in the left lower lobe. Cannot exclude neoplasm. Small probably loculated effusion in the posterior lower left hemithorax. Nodules in the right and left apices as described, recommend follow-up in 4-6 months. Suspicious upper mediastinal adenopathy. Ectasia of the ascending aorta. Electronically Signed: Peyman Crum MD at 20:41 EST , Service support , Chest Ultrasound 09/08/18 14:18 IMPRESSION: Small left pleural effusion with septations. Electronically Signed: Wilton Denise, at 15:54 EDT , Service support , Medical Necessity - Tobacco Use Smoking Status: Former smoker Assessment/Plan All Active Problems (Last Reviewed 09/04/18 @ 05:01 by Gio Aponte MD) Community acquired pneumonia (Acute) ESRD (end stage renal disease) on dialysis (Acute) Bacteremia (Acute) Problem with dialysis access (Acute) RECOMMENDATIONS: 1. Continue antibiotics per ID discretion. 2. Repeat blood cultures are pending. Anticipate that cultures will also be sent from the OR following surgical debridement of the patient's abscess. 3. Encourage incentive spirometer use and mobilize patient as tolerated. 4. There is no indication for any form of surgical intervention with regard to the patient's small loculated effusion. 5. The patient can follow-up in the pulmonary medicine clinic upon discharge for repeat chest imaging in 6-8 weeks. 6. As the patient has no further pulmonary needs, will sign off. Please call with any additional questions. IMPRESSIONS: 1. Acute hypoxemic respiratory insufficiency secondary to staphylococcal pneumonia The patient appears to be improving symptomatically and is currently maintaining appropriate oxygen saturations on room air. Both CT chest and left-sided thoracic ultrasound did reveal evidence of a small loculated pleural effusion with internal septations. However, the patient has improved clinically and is maintaining appropriate oxygen saturations on room air. I would plan to continue his current antimicrobial treatment course, with plans for repeat outpatient chest imaging in 6-8 weeks. I would not advocate for any form of surgical intervention at this time. 2. Sepsis secondary to #1 and staphylococcal bacteremia Plan to continue antibiotics per ID recommendations. The patient did have evidence of a right upper extremity abscess adjacent to his hemodialysis access site. There are plans for this to be surgically drained later this morning in the OR. 3. End-stage renal disease on hemodialysis Continue hemodialysis support per nephrology recommendations. This note was generated with [employer] dictation software. It may contain incorrect words, spelling, and punctuation that were not noted in checking the note before signing. Code Visit Inpatient E&M: 13961 Subs Hosp L2
[2018-09-09 07:32] LABS: AST(SGOT) 70 U/L (15-37); Alanine Aminotransfer ALT/SGPT 52 U/L (16-61); Albumin, Serum 2.4 g/dL (3.2-5.0); Alkaline Phosphatase 259 U/L (45-117); Anion Gap 15 (5-15); BUN 52 mg/dL (7-18); BUN/Creat Ratio 5.9 RATIO (10-20); Bilirubin, Direct 1.06 mg/dL (0.00-0.30); Chloride 101 mmol/L (98-107); Creatinine, Serum 8.77 mg/dL (0.70-1.30); EST Glomerular Filtration Rate 7 mL/min (>60); Est Glom Filt Rate - Afr Amer 8 mL/min (>60); Estimated Creatinine Clearance 7.04 ml/min; Globulin 5.7 g/dL (2.2-4.2); Glucose 82 mg/dL (74-106); Potassium 5.1 mmol/L (3.5-5.1); Protein, Total 8.1 g/dL (6.4-8.2); Sodium Level 136 mmol/L (136-145)
[2018-09-09] MEDS: Metoprolol Tartrate 50 MG Tablet PO ×2 (07:59→21:24)
[2018-09-09] MEDS: Pantoprazole Sodium 40 MG Tablet PO (08:00)
[2018-09-09] MEDS: NIFEdipine 60 MG Tablet 120 MG PO (08:13)
--- NOTE | 2018-09-09 08:54 | NURSING ---
pt taken to ac to prep for surgery, report given to sonya snow
[2018-09-09] MEDS: Cefazolin 1 GM/50 ML BAG IV (10:00)
[2018-09-09] MEDS: Bupivacaine 0.5% PF 10 ML VIAL (10:16)
--- NOTE | 2018-09-09 10:36 | OP.PCM_ITS ---
Problem List (1) Problem with dialysis access Status: Acute Qualifiers: Encounter type: initial encounter Qualified Code(s): T82.898A - Other specified complication of vascular prosthetic devices, implants and grafts, initial encounter Report of Operation Date of Procedure: 09/09/18 Pre-Operative Diagnosis: Distal right upper arm aj-dialysis graft abscess Post-Operative Diagnosis: Same Surgery/Procedure Performed:: Skin and subcutaneous tissue sharp scalpel and scissor debridement right upper arm abscess Description of Surgical Findings:: Timeout and informed consent was obtained. 58-year-old gent was taken to the operating room placed on the table he was already on therapeutic Ancef. He has known staph infection. He underwent monitored anesthesia care. The right extremity sterilely prepped and draped. 0.5% Marcaine was used as local anesthetic. Total 10 cc was used. A E ellipse of skin incorporating the necr otic dermis was performed measuring approximately 0.5 x 0.6 cm. Purulence immediately was encountered. Aerobic and anaerobic specimen was obtained. Sharp scalpel dissection was formed down through the dermis into the subcutaneous tissue. Necrotic tissue was sharply excised with scalpel dissection and scissor dissection. The previously placed PTFE graft was visualized. There was no active bleeding from the graft. The anastomotic suture line was not visualized. The pocket was clearly open debrided purulence was evacuated. I placed a 1/2 inch Nu Gauze wick. Sterile covered dressings were applied. Sponge and instrument and needle counts were reported the surgeon to be correct. Blood loss minimal. He was taken to the recovery area in satisfactory condition without apparent complication. Specimen includes the debrided abscess tissue and dermis subcutaneous tissue. Drains the half inch Nu Gauze wick. Blood loss minimal. Wayne Rivers M.D., F.A.C.S. Type of Anesthesia:: Local MAC Anesthesiologist: Tabatha Lopez
--- NOTE | 2018-09-09 13:26 | NURSING ---
@ 1230, pt called, drsg on right arm had slid from surgical site and there was mild bleeding from wound-wick still intact in wound and small amt of blood (dime size) hemolyzed, scant amount of oozing of blood at surgical site-old drsg found to be saturated with blood, both the 3x3's (6) and the 2 abd pads, blood had saturated 1/2 of ariadna wrap also, 2 new abd's applied with slight pressure until bleeding noted to be stopped and then those abd's were stabilized with ariadna, pt informed to notify staff if bleeding observed again and at 1300, dr mcfadden visited pt and noted that there was a small amount of blood on pt blanket and the dressing was saturated again-we spoke with dr mcgregor at this time and he suggests that we hold pressure until bleeding has stopped and apply new dressing with latanya wrap and slight pressure-report given to oncoming nurse, dialysis nurse is here and she was updated and is in communication with dr mcfadden also
[2018-09-09] MEDS: Na Biphos/Potassium Phosphate PACKET 1 PACKET PO ×3 (13:34→21:24)
[2018-09-09] MEDS: Folic Acid/Vitamin B Comp W-C 1 Capsule 1 CAP PO (13:34)
[2018-09-09] MEDS: guaiFENesin 1,200 MG Tablet 1200 MG PO ×2 (13:34→21:24)
--- NOTE | 2018-09-09 13:41 | PCM.PN.REN ---
Patient Problems: Active and Suspected Problems (Last Reviewed 09/04/18 @ 05:01 by Gio Aponte MD) Community acquired pneumonia (Acute) ESRD (end stage renal disease) on dialysis (Acute) Bacteremia (Acute) Problem with dialysis access (Acute) Subjective: Patient was taken this morning for I&D of the AV fistula abscess. Patient now is bleeding from the surgical site. Did not have dialysis yesterday. Denies any nausea vomiting. No shortness of breath - Physical Exam General: Alert, Oriented x3 HEENT: Atraumatic Oral: Moist Mucosa Neck: Supple, No JVD Lungs: Clear to auscultation, Normal air movement, No rhonchi, No wheeze Cardiovascular: Regular rate, Regular Rhythm, Normal S1, Normal S2 Abdomen: Bowel Sounds Present, Soft, Non Tender Extremities: No clubbing, No cyanosis, No edema Skin: No rashes Musculoskeletal: No Tenderness to Palpation of Joints or Extremities Lymphatic: No Cervical, Supraclavicular, or Inguinal Adenopathy Neurological: Cranial nerves II-XII grossly intact, Neuro grossly intact Psych/Mental Status: Normal Affect Vital Signs Temp Pulse Resp BP Pulse Ox 99.1 F 86 18 141/92 H 92 09/09/18 13:24 09/09/18 13:24 09/09/18 13:30 09/09/18 13:24 09/09/18 13:34 Oxygen Flow Rate (L/min) 1 Oxygen Delivery Method Room Air Weight: 54.2 kg Body Mass Index (BMI) 21.9 Intake and Output for Last 24 Hours 09/07/18 09/08/18 09/09/18 23:59 23:59 23:59 Intake Total 752 / 752 808 / 808 Output Total 100 / 100 100 / 100 Balance 652 / 652 708 / 708 Microbiology Past 72 Hours 09/05/18 11:37 Blood Culture - Preliminary Blood Culture (Wb) - Anticubital Right 09/04/18 17:20 Bacteria Detection (PCR) - Final Blood Culture (Wb) - Anticubital Left Staphylococcus aureus Blood Culture - Preliminary Staphylococcus aureus 09/04/18 17:20 Blood Culture - Final Blood Culture (Wb) - Arm Left Staphylococcus aureus 09/04/18 09:10 Gram Stain - Final Sputum, Expectorated/Coughed Respiratory Culture - Final Staphylococcus aureus Laboratory Tests Past 24 Hrs 09/09/18 09/09/18 09/09/18 06:20 06:20 06:20 WBC 10.9 RBC 3.27 L Hgb 9.5 L Hct 29.7 L MCV 90.8 MCH 29.1 MCHC 32.0 RDW 17.1 H RDW Differential 56.2 H Plt Count 196 MPV 11.7 Immature Gran % (Auto) 0.900 Neut % (Auto) 62.5 Lymph % (Auto) 10.6 L [place] % (Auto) 17.2 H Eos % (Auto) 8.3 H Baso % (Auto) 0.5 Absolute Neuts (auto) 6.8 Absolute Lymphs (auto) 1.16 Total Counted Not Reportable PT 14.3 INR 1.1 APTT 38.0 H Sodium 136 Potassium 5.1 Chloride 101 Carbon Dioxide 20.0 L Anion Gap 15 BUN 52 H Creatinine 8.77 H* Estim Creat Clear Calc 7.04 Est GFR (MDRD) Af Amer 8 L Est GFR (MDRD) Non-Af 7 L BUN/Creatinine Ratio 5.9 L Glucose 82 Calcium 9.0 Total Bilirubin 2.20 H Direct Bilirubin 1.06 H AST 70 H ALT 52 Alkaline Phosphatase 259 H Total Protein 8.1 Albumin 2.4 L Globulin 5.7 H Medical Necessity - Tobacco Use Smoking Status: Former smoker Assessment/Plan All Active Problems (Last Reviewed 09/04/18 @ 05:01 by Gio Aponte MD) Community acquired pneumonia (Acute) ESRD (end stage renal disease) on dialysis (Acute) Bacteremia (Acute) Problem with dialysis access (Acute) 1. 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 HD TTS.Pt goes to [facility] [place]. Hemodialysis session today as per the chronic order. We will aim for ultrafiltration according to the EDW Is okay to use the AV fistula for dialysis today as per Dr. Rivers 2. Anemia. Continue JUANITA with HD. 3. Hypophosphatemia. Due to P binder. Sevelamer was stopped. Level was 1.5 yesterday. Please recheck phosphorus tomorrow. Please d/c patient without P binder 4. HTN. BP is controlled. Continue current medications. 5. Staph aureus pneumonia/BSI. Patient needs [place] to rule out endocarditis. Antibiotic per ID and hospital medicine service. 6-AV fistula abscess most probably from bacteremia, status post I&D today September 09. Patient is currently having bleeding from the surgical site. Nurse was instructed to call Renal team will continue to follow . Please call with any question DIANE REDMAN MD [phone]
--- NOTE | 2018-09-09 13:42 | PN_ITS ---
Patient Problems: Active and Suspected Problems (Last Reviewed 09/04/18 @ 05:01 by Gio Aponte MD) Community acquired pneumonia (Acute) ESRD (end stage renal disease) on dialysis (Acute) Bacteremia (Acute) Problem with dialysis access (Acute) Subjective: All events the past 24 hours of been reviewed. He was taken to surgery by Dr. Wayne Rivers today for debridement of the small abscess located at the distal and of the right upper extremity AV fistula. Purulent material was sent for culture and Gram stain. T-max is 100.6 ?F at 10:50 AM today. He is 94-97% saturated on room air with a normal respiratory rate. All lab was personally reviewed. White blood cell count today is 10.9 with an unremarkable differential other than an increased eosinophil count at 8.3. Sodium is normal today at 136 and the potassium is 5.1. Serum bicarb has been decreasing and today is 20. BROOKLYN was ordered but has not been done yet. - Physical Exam Vital Signs Temp Pulse Resp BP Pulse Ox 99.1 F 86 18 141/92 H 92 09/09/18 13:24 09/09/18 13:24 09/09/18 13:30 09/09/18 13:24 09/09/18 13:34 Oxygen Flow Rate (L/min) 1 Oxygen Delivery Method Room Air Weight: 119 lb 7.849 oz Body Mass Index (BMI) 21.9 Intake and Output for Last 24 Hours 09/07/18 09/08/18 09/09/18 23:59 23:59 23:59 Intake Total 752 / 752 808 / 808 Output Total 100 / 100 100 / 100 Balance 652 / 652 708 / 708 Microbiology Past 72 Hours 09/05/18 11:37 Blood Culture - Preliminary Blood Culture (Wb) - Anticubital Right 09/04/18 17:20 Bacteria Detection (PCR) - Final Blood Culture (Wb) - Anticubital Left Staphylococcus aureus Blood Culture - Preliminary Staphylococcus aureus 09/04/18 17:20 Blood Culture - Final Blood Culture (Wb) - Arm Left Staphylococcus aureus 09/04/18 09:10 Gram Stain - Final Sputum, Expectorated/Coughed Respiratory Culture - Final Staphylococcus aureus Laboratory Tests Past 24 Hrs 09/09/18 09/09/18 09/09/18 06:20 06:20 06:20 WBC 10.9 RBC 3.27 L Hgb 9.5 L Hct 29.7 L MCV 90.8 MCH 29.1 MCHC 32.0 RDW 17.1 H RDW Differential 56.2 H Plt Count 196 MPV 11.7 Immature Gran % (Auto) 0.900 Neut % (Auto) 62.5 Lymph % (Auto) 10.6 L [place] % (Auto) 17.2 H Eos % (Auto) 8.3 H Baso % (Auto) 0.5 Absolute Neuts (auto) 6.8 Absolute Lymphs (auto) 1.16 Total Counted Not Reportable PT 14.3 INR 1.1 APTT 38.0 H Sodium 136 Potassium 5.1 Chloride 101 Carbon Dioxide 20.0 L Anion Gap 15 BUN 52 H Creatinine 8.77 H* Estim Creat Clear Calc 7.04 Est GFR (MDRD) Af Amer 8 L Est GFR (MDRD) Non-Af 7 L BUN/Creatinine Ratio 5.9 L Glucose 82 Calcium 9.0 Total Bilirubin 2.20 H Direct Bilirubin 1.06 H AST 70 H ALT 52 Alkaline Phosphatase 259 H Total Protein 8.1 Albumin 2.4 L Globulin 5.7 H Medical Necessity - Tobacco Use Smoking Status: Former smoker Assessment/Plan All Active Problems (Last Reviewed 09/04/18 @ 05:01 by Gio Aponte MD) Community acquired pneumonia (Acute) ESRD (end stage renal disease) on dialysis (Acute) Bacteremia (Acute) Problem with dialysis access (Acute)
[2018-09-09] MEDS: Acetaminophen 325 MG Tablet 650 MG PO (16:54)
--- NOTE | 2018-09-09 17:20 | NURSING ---
Surgical site continued to ooze large amounts of drainage. Manual pressure applied for 1-2 hours per grit blaster at bedside. Drainage noted to be less... 4x4's folded and placed over incision, abd applied, and then curlex wrapped around arm. Light pressure latanya wrap applied over the dressing. Arm elevated on pillow.
--- NOTE | 2018-09-09 18:51 | PCM.DC.SUM ---
Discharge Date and Diagnosis - Problem List Patient Problems: Active and Suspected Problems (Last Reviewed 09/04/18 @ 05:01 by Gio Aponte MD) Community acquired pneumonia (Acute) ESRD (end stage renal disease) on dialysis (Acute) Bacteremia (Acute) Problem with dialysis access (Acute) Date of Admission: 09/04/18 Date of Discharge: 09/09/18 - Primary Discharge Diagnosis Active and Suspected Problems (Last Reviewed 09/04/18 @ 05:01 by Gio Aponte MD) Severe sepsis secondary to community acquired pneumonia (Acute) likely secondary to MSSA MSSA bacteremia in 2 of 2 blood cultures drawn on 09/04/2018. ESRD (end stage renal disease) on dialysis (Acute) abscess distal end of the AV fistula in the RUE bleeding complication post I&D abscess on 09/09/[address] Rivers Small loculated left pleural effusion Hypokalemia Thrombocytopenia Acute hypoxemic respiratory insufficiency secondary to MSSA pneumonia Hypophosphatemia - Secondary Discharge Diagnosis Chronic Problems (Last Reviewed 09/04/18 @ 05:01 by Gio Aponte MD) CKD (chronic kidney disease), stage V (Chronic)-on hemodialysis Pulmonary fibrosis (Chronic) Systemic sclerosis (Chronic) Raynaud disease (Chronic) Anemia of chronic renal failure Systemic sclerosis (Chronic) Osteoarthritis (Chronic) Hypokalemia (Chronic) HTN (hypertension) (Chronic) Generalized edema (Chronic) Alcohol abuse (Chronic) Hospital Course and Treatment Imaging Results: Clinical Impression(s) from Imaging Studies Chest X-Ray 09/05/18 11:24 IMPRESSION: Left lower lobe infiltration and small left pleural effusion. Electronically Signed: Wilton Walker, at 11:53 EST , Service support , Chest CT 09/05/18 15:58 IMPRESSION: Atelectasis and/or infiltrate in the left lower lobe. Cannot exclude neoplasm. Small probably loculated effusion in the posterior lower left hemithorax. Nodules in the right and left apices as described, recommend follow-up in 4-6 months. Suspicious upper mediastinal adenopathy. Ectasia of the ascending aorta. Electronically Signed: Peyman Crum MD at 20:41 EST , Service support , Chest Ultrasound 09/08/18 14:18 IMPRESSION: Small left pleural effusion with septations. Electronically Signed: Wilton Walker, at 15:54 EDT , Service support , Laboratory Results - last 24 hr 09/09/18 09/09/18 09/09/18 06:20 06:20 06:20 WBC 10.9 RBC 3.27 L Hgb 9.5 L Hct 29.7 L MCV 90.8 MCH 29.1 MCHC 32.0 RDW 17.1 H RDW Differential 56.2 H Plt Count 196 MPV 11.7 Immature Gran % (Auto) 0.900 Neut % (Auto) 62.5 Lymph % (Auto) 10.6 L [place] % (Auto) 17.2 H Eos % (Auto) 8.3 H Baso % (Auto) 0.5 Absolute Neuts (auto) 6.8 Absolute Lymphs (auto) 1.16 Total Counted Not Reportable PT 14.3 INR 1.1 APTT 38.0 H Sodium 136 Potassium 5.1 Chloride 101 Carbon Dioxide 20.0 L Anion Gap 15 BUN 52 H Creatinine 8.77 H* Estim Creat Clear Calc 7.04 Est GFR (MDRD) Af Amer 8 L Est GFR (MDRD) Non-Af 7 L BUN/Creatinine Ratio 5.9 L Glucose 82 Calcium 9.0 Total Bilirubin 2.20 H Direct Bilirubin 1.06 H AST 70 H ALT 52 Alkaline Phosphatase 259 H Total Protein 8.1 Albumin 2.4 L Globulin 5.7 H Microbiology 09/09/18 10:23 Tissue - Other Gram Stain - Final 09/09/18 10:23 Wound Abcess - Other Gram Stain - Final 09/05/18 11:37 Blood Culture (Wb) - Anticubital Right Blood Culture - Preliminary 09/04/18 17:20 Blood Culture (Wb) - Anticubital Left Bacteria Detection (PCR) - Final Staphylococcus aureus 09/04/18 17:20 Blood Culture (Wb) - Anticubital Left Blood Culture - Preliminary Staphylococcus aureus 09/04/18 17:20 Blood Culture (Wb) - Arm Left Blood Culture - Final Staphylococcus aureus 09/04/18 09:10 Sputum, Expectorated/Coughed Gram Stain - Final 09/04/18 09:10 Sputum, Expectorated/Coughed Respiratory Culture - Final Staphylococcus aureus 09/05/18 02:00 Stool C. difficile DNA Amplification - Final 09/04/18 09:10 Urine, Clean Catch Streptococcus pneumoniae Antigen (M - Final 09/04/18 09:10 Urine, Clean Catch Legionella Antigen - Final 09/04/18 05:05 Mucosa - Nasopharyngeal Influenza Types A,B Direct FA (SAKINA) - Final Dr. Wayne Salguero-infectious disease Dr. Wayne Rivers-general surgery/vascular surgery Dr. Fahad Jose-pulmonary medicine [facility] Operations: None Procedures: Dialysis, - - Incision and drainage of abscess distal end of right upper extremity AV fistula by Dr. Wayne Rivers on 09/09/2018 Summary of Care Provided: The patient is a 58-year-old male with a past medical history of chronic kidney disease stage V on hemodialysis, pulmonary fibrosis, systemic sclerosis, Raynaud's disease, osteoarthritis, hypertension, alcohol abuse and chronic anemia who presented to the emergency department at [facility] with c/o chills and cough productive of green/yellow sputum. Chest x-ray showed either a small pleural effusion or consolidation in the left base. White blood cell count was 15.9 and the lactic acid was 4.8. BUN was 48 and the creatinine was 8.3. He was transferred to [facility] for tx of possible pneumonia and for HD. He is a pt of Dr. George from [facility]. He was started Zosyn and vancomycin at admission to [facility] and received azithromycin and Rocephin at [facility] emergency department. Sputum and blood cultures obtained on 09/04/18 were positive for methicillin sensitive staph aureus (2 of 2). Repeat blood culture on 09/05/2018 and 09/06/18 had no growth. Rapid influenza swab was negative. Dr. Wayne Salguero from infectious disease was consulted and he had concern for the AV fistula and heart involvement. A CT scan of the chest was ordered and showed atelectasis and/or infiltrate in the left lower lobe. There was a small probably loculated effusion in the left hemithorax. There were nodules in the right and left apices. There was suspicious upper mediastinal adenopathy. Dr. Fahad Jose from pulmonary was consulted to evaluate the pleural effusion and a thoracic ultrasound was ordered and showed a small left pleural effusion with septations. Dr. Jose did not feel this needed to be addressed at this time. BROOKLYN was recommended by Dr. Salguero but was to be done after I&D of the AV fistula abscess on 09/09/2018. He was taken to the OR by Dr. Rivers on 09/09/2018 and an incision and drainage of the abscess was undertaken. Culture of the purulent material was sent to the lab. There were 1+ white blood cells. The white blood cell count decreased from 16.7 at admission to 10.9 on the date of discharge. The left shift had resolved. Hemoglobin was stable at 9.5. Unfortunately the surgical site started bleeding after he was transferred back from surgery and despite holding pressure it continued to bleed. The patient had a shortened HD session on 09/09 due to the bleeding. Dr. Rivers was in contact with Dr. Rigo Wiggins at [facility] and he was agreeable to seeing the patient however, he was going to contact the medical intensive care unit and have him admitted to the MICU with him on consult. We have not as yet received a bed so a stat HH was ordered at 7 PM and he was typed and screened for packed red blood cells in the event that he needed transfused. - Physical Exam General: Alert, Oriented x3, Cooperative, No apparent distress HEENT: Atraumatic, PERRLA, EOMI, Normocephalic Oral: Moist Mucosa Neck: Supple, No JVD, No Nodes, Trachea Midline Lungs: Clear to auscultation, No rhonchi, No wheeze, No rales, Diminished, - - Not tachypneic at rest, no accessory muscle use and no conversational dyspnea Cardiovascular: Regular rate, Regular Rhythm, Normal S1, Normal S2, No rub noted, No Gallop Abdomen: Bowel Sounds Present, Soft, Non Tender, Non-Distended Extremities: No clubbing, No cyanosis, No edema, - - there is a pustule present on the distal end of the AV fistula in the RUE. the fistula has a good thrill Skin: No rashes, No breakdown Neurological: Cranial nerves II-XII grossly intact, Neuro grossly intact Psych/Mental Status: Normal Affect, Appropriate This note was generated with [employer]ie[employer] dictation software. It may contain incorrect words, spelling, and punctuation that were not noted in checking the note before signing. Patient Problems: Active and Suspected Problems (Last Reviewed 09/04/18 @ 05:01 by Gio Aponte MD) Community acquired pneumonia (Acute) ESRD (end stage renal disease) on dialysis (Acute) Bacteremia (Acute) Problem with dialysis access (Acute) - Physical Exam Vital Signs Temp Pulse Resp BP Pulse Ox 99.1 F 63 18 141/92 H 92 09/09/18 13:24 09/09/18 17:50 09/09/18 13:30 09/09/18 13:24 09/09/18 13:34 Oxygen Flow Rate (L/min) 1 Oxygen Delivery Method Room Air Weight: 119 lb 7.849 oz Body Mass Index (BMI) 21.9 Intake and Output for Last 24 Hours 09/07/18 09/08/18 09/09/18 23:59 23:59 23:59 Intake Total 752 / 752 1296 / 1296 Output Total 100 / 100 700 / 700 Balance 652 / 652 596 / 596 Microbiology Past 72 Hours 09/09/18 10:23 Gram Stain - Final Tissue - Other 09/09/18 10:23 Gram Stain - Final Wound Abcess - Other 09/05/18 11:37 Blood Culture - Preliminary Blood Culture (Wb) - Anticubital Right 09/04/18 17:20 Bacteria Detection (PCR) - Final Blood Culture (Wb) - Anticubital Left Staphylococcus aureus Blood Culture - Preliminary Staphylococcus aureus 09/04/18 17:20 Blood Culture - Final Blood Culture (Wb) - Arm Left Staphylococcus aureus 09/04/18 09:10 Gram Stain - Final Sputum, Expectorated/Coughed Respiratory Culture - Final Staphylococcus aureus Laboratory Tests Past 24 Hrs 09/09/18 09/09/18 09/09/18 06:20 06:20 06:20 WBC 10.9 RBC 3.27 L Hgb 9.5 L Hct 29.7 L MCV 90.8 MCH 29.1 MCHC 32.0 RDW 17.1 H RDW Differential 56.2 H Plt Count 196 MPV 11.7 Immature Gran % (Auto) 0.900 Neut % (Auto) 62.5 Lymph % (Auto) 10.6 L [place] % (Auto) 17.2 H Eos % (Auto) 8.3 H Baso % (Auto) 0.5 Absolute Neuts (auto) 6.8 Absolute Lymphs (auto) 1.16 Total Counted Not Reportable PT 14.3 INR 1.1 APTT 38.0 H Sodium 136 Potassium 5.1 Chloride 101 Carbon Dioxide 20.0 L Anion Gap 15 BUN 52 H Creatinine 8.77 H* Estim Creat Clear Calc 7.04 Est GFR (MDRD) Af Amer 8 L Est GFR (MDRD) Non-Af 7 L BUN/Creatinine Ratio 5.9 L Glucose 82 Calcium 9.0 Total Bilirubin 2.20 H Direct Bilirubin 1.06 H AST 70 H ALT 52 Alkaline Phosphatase 259 H Total Protein 8.1 Albumin 2.4 L Globulin 5.7 H Discharge Activity: Return to Normal Activity Home Medications: Medications to take at Discharge Benzonatate [Tessalon Perle] 100 mg PO TID PRN PRN 07/28/13 Sevelamer Carbonate [Renvela] 1,600 mg PO TID 07/28/13 acetaminophen 325 mg capsule 650 mg PO Q6H PRN 02/26/18 adapalene 0.3 % topical gel 1 applic TOPICAL QPM 02/26/18 albuterol sulfate HFA 90 mcg/actuation aerosol inhaler 1 puff INHALATION Q6H PRN 02/26/18 nifedipine ER 60 mg tablet,extended release 120 mg PO DAILY #180 tab 04/11/18 Amox/Clavulanate Tablet [Augmentin Tablet] 500 mg PO DAILY #7 tablet 09/04/18 Folic Acid/Vit B Complex and C [Renal Vitamin Tablet] 1 tab PO DAILY 09/04/18 Guaifenesin [Mucinex] 600 mg PO DAILY PRN 09/04/18 Metoprolol Tartrate [Lopressor (beta yenny)] 50 mg PO BID 09/04/18 Nepro Liquid [Nepro Carb Steady] 120 ml PO 4X/DAY #100 liquid 09/04/18 Pantoprazole Sodium 40 mg PO DAILY 09/04/18 Following Prescrptions Were Given to Patient: Amox/Clavulanate Tablet [Augmentin Tablet] 500 mg PO DAILY #7 tablet Nepro Liquid [Nepro Carb Steady] 120 ml PO 4X/DAY #100 liquid Primary Care Physician: Magdiel Jose DO [Primary Care Provider] - Please follow up with your Primary Care Physician in: within 1-2 weeks of discharge Please Follow Up With: Ashley Gross MD When: as scheduled for dialysis Disposition: [facility] Minutes spent on discharge:: 45 Patient Condition:: Guarded Medical Necessity - Tobacco Use Smoking Status: Former smoker Tobacco Use: Non-smoker Meaningful Use Info Meaningful Use Diagnoses (Choose all that apply): None applicable Code Visit Inpatient E&M: 13219 Disch Hosp
--- NOTE | 2018-09-09 18:55 | DS.PCM_ITS ---
Discharge Date and Diagnosis - Problem List Patient Problems: Active and Suspected Problems (Last Reviewed 09/04/18 @ 05:01 by Gio Aponte MD) Community acquired pneumonia (Acute) ESRD (end stage renal disease) on dialysis (Acute) Bacteremia (Acute) Problem with dialysis access (Acute) Date of Admission: 09/04/18 Date of Discharge: 09/09/18 - Primary Discharge Diagnosis Active and Suspected Problems (Last Reviewed 09/04/18 @ 05:01 by Gio Aponte MD) Severe sepsis secondary to community acquired pneumonia (Acute) likely secondary to MSSA MSSA bacteremia in 2 of 2 blood cultures drawn on 09/04/2018. ESRD (end stage renal disease) on dialysis (Acute) abscess distal end of the AV fistula in the RUE bleeding complication post I&D abscess on 09/09/[address] Rivers Small loculated left pleural effusion Hypokalemia Thrombocytopenia Acute hypoxemic respiratory insufficiency secondary to MSSA pneumonia Hypophosphatemia - Secondary Discharge Diagnosis Chronic Problems (Last Reviewed 09/04/18 @ 05:01 by Gio Aponte MD) CKD (chronic kidney disease), stage V (Chronic)-on hemodialysis Pulmonary fibrosis (Chronic) Systemic sclerosis (Chronic) Raynaud disease (Chronic) Anemia of chronic renal failure Systemic sclerosis (Chronic) Osteoarthritis (Chronic) Hypokalemia (Chronic) HTN (hypertension) (Chronic) Generalized edema (Chronic) Alcohol abuse (Chronic) Hospital Course and Treatment Imaging Results: Clinical Impression(s) from Imaging Studies Chest X-Ray 09/05/18 11:24 IMPRESSION: Left lower lobe infiltration and small left pleural effusion. Electronically Signed: Wilton Walker, at 11:53 EST , Service support , Chest CT 09/05/18 15:58 IMPRESSION: Atelectasis and/or infiltrate in the left lower lobe. Cannot exclude neoplasm. Small probably loculated effusion in the posterior lower left hemithorax. Nodules in the right and left apices as described, recommend follow-up in 4-6 months. Suspicious upper mediastinal adenopathy. Ectasia of the ascending aorta. Electronically Signed: Peyman Crum MD at 20:41 EST , Service support , Chest Ultrasound 09/08/18 14:18 IMPRESSION: Small left pleural effusion with septations. Electronically Signed: Wilton Walker, at 15:54 EDT , Service support , Laboratory Results - last 24 hr 09/09/18 09/09/18 09/09/18 06:20 06:20 06:20 WBC 10.9 RBC 3.27 L Hgb 9.5 L Hct 29.7 L MCV 90.8 MCH 29.1 MCHC 32.0 RDW 17.1 H RDW Differential 56.2 H Plt Count 196 MPV 11.7 Immature Gran % (Auto) 0.900 Neut % (Auto) 62.5 Lymph % (Auto) 10.6 L [place] % (Auto) 17.2 H Eos % (Auto) 8.3 H Baso % (Auto) 0.5 Absolute Neuts (auto) 6.8 Absolute Lymphs (auto) 1.16 Total Counted Not Reportable PT 14.3 INR 1.1 APTT 38.0 H Sodium 136 Potassium 5.1 Chloride 101 Carbon Dioxide 20.0 L Anion Gap 15 BUN 52 H Creatinine 8.77 H* Estim Creat Clear Calc 7.04 Est GFR (MDRD) Af Amer 8 L Est GFR (MDRD) Non-Af 7 L BUN/Creatinine Ratio 5.9 L Glucose 82 Calcium 9.0 Total Bilirubin 2.20 H Direct Bilirubin 1.06 H AST 70 H ALT 52 Alkaline Phosphatase 259 H Total Protein 8.1 Albumin 2.4 L Globulin 5.7 H Microbiology 09/09/18 10:23 Tissue - Other Gram Stain - Final 09/09/18 10:23 Wound Abcess - Other Gram Stain - Final 09/05/18 11:37 Blood Culture (Wb) - Anticubital Right Blood Culture - Preliminary 09/04/18 17:20 Blood Culture (Wb) - Anticubital Left Bacteria Detection (PCR) - Final Staphylococcus aureus 09/04/18 17:20 Blood Culture (Wb) - Anticubital Left Blood Culture - Preliminary Staphylococcus aureus 09/04/18 17:20 Blood Culture (Wb) - Arm Left Blood Culture - Final Staphylococcus aureus 09/04/18 09:10 Sputum, Expectorated/Coughed Gram Stain - Final 09/04/18 09:10 Sputum, Expectorated/Coughed Respiratory Culture - Final Staphylococcus aureus 09/05/18 02:00 Stool C. difficile DNA Amplification - Final 09/04/18 09:10 Urine, Clean Catch Streptococcus pneumoniae Antigen (M - Final 09/04/18 09:10 Urine, Clean Catch Legionella Antigen - Final 09/04/18 05:05 Mucosa - Nasopharyngeal Influenza Types A,B Direct FA (SAKINA) - Final Dr. Wayne Salguero-infectious disease Dr. Wayne Rivers-general surgery/vascular surgery Dr. Fahad Jose-pulmonary medicine [facility] Operations: None Procedures: Dialysis, - - Incision and drainage of abscess distal end of right upper extremity AV fistula by Dr. Wayne Rivers on 09/09/2018 Summary of Care Provided: The patient is a 58-year-old male with a past medical history of chronic kidney disease stage V on hemodialysis, pulmonary fibrosis, systemic sclerosis, Raynaud's disease, osteoarthritis, hypertension, alcohol abuse and chronic anemia who presented to the emergency department at [facility] with c/o chills and cough productive of green/yellow sputum. Chest x-ray showed either a small pleural effusion or consolidation in the left base. White blood cell count was 15.9 and the lactic acid was 4.8. BUN was 48 and the creatinine was 8.3. He was transferred to [facility] for tx of possible pneumo kvng and for HD. He is a pt of Dr. George from [facility]. He was started Zosyn and vancomycin at admission to [facility] and received azithromycin and Rocephin at [facility] emergency department. Sputum and blood cultures obtained on 09/04/18 were positive for methicillin sensitive staph aureus (2 of 2). Repeat blood culture on 09/05/2018 and 09/06/18 had no growth. Rapid influenza swab was negative. Dr. Wayne Salguero from infectious disease was consulted and he had concern for the AV fistula and heart involvement. A CT scan of the chest was ordered and showed atelectasis and/or infiltrate in the left lower lobe. There was a small probably loculated effusion in the left hemithorax. There were nodules in the right and left apices. There was suspicious upper mediastinal adenopathy. Dr. Fahad Jose from pulmonary was consulted to evaluate the pleural effusion and a thoracic ultrasound was ordered and showed a small left pleural effusion with septations. Dr. Jose did not feel this needed to be addressed at this time. [place] was recommended by Dr. Salguero but was to be done after I&D of the AV fistula abscess on 09/09/2018. He was taken to the OR by Dr. Rivers on 09/09/2018 and an incision and drainage of the abscess was undertaken. Culture of the purulent material was sent to the lab. There were 1+ white blood cells. The white blood cell count decreased from 16.7 at admission to 10.9 on the date of discharge. The left shift had resolved. Hemoglobin was stable at 9.5. Unfortunately the surgical site started bleeding after he was transferred back from surgery and despite holding pressure it continued to bleed. The patient had a shortened HD session on 09/09 due to the bleeding. Dr. Rivers was in contact with Dr. Rigo Wiggins at [facility] and he was agreeable to seeing the patient however, he was going to contact the medical intensive care unit and have him admitted to the MICU with him on consult. We have not as yet received a bed so a stat HH was ordered at 7 PM and he was typed and screened for packed red blood cells in the event that he needed transfused. - Physical Exam General: Alert, Oriented x3, Cooperative, No apparent distress HEENT: Atraumatic, PERRLA, EOMI, Normocephalic Oral: Moist Mucosa Neck: Supple, No JVD, No Nodes, Trachea Midline Lungs: Clear to auscultation, No rhonchi, No wheeze, No rales, Diminished, - - Not tachypneic at rest, no accessory muscle use and no conversational dyspnea Cardiovascular: Regular rate, Regular Rhythm, Normal S1, Normal S2, No rub noted, No Gallop Abdomen: Bowel Sounds Present, Soft, Non Tender, Non-Distended Extremities: No clubbing, No cyanosis, No edema, - - there is a pustule present on the distal end of the AV fistula in the RUE. the fistula has a good thrill Skin: No rashes, No breakdown Neurological: Cranial nerves II-XII grossly intact, Neuro grossly intact Psych/Mental Status: Normal Affect, Appropriate This note was generated with [employer] dictation software. It may contain incorrect words, spelling, and punctuation that were not noted in checking the note before signing. Patient Problems: Active and Suspected Problems (Last Reviewed 09/04/18 @ 05:01 by Gio Aponte MD) Community acquired pneumonia (Acute) ESRD (end stage renal disease) on dialysis (Acute) Bacteremia (Acute) Problem with dialysis access (Acute) - Physical Exam Vital Signs Temp Pulse Resp BP Pulse Ox 99.1 F 63 18 141/92 H 92 09/09/18 13:24 09/09/18 17:50 09/09/18 13:30 09/09/18 13:24 09/09/18 13:34 Oxygen Flow Rate (L/min) 1 Oxygen Delivery Method Room Air Weight: 119 lb 7.849 oz Body Mass Index (BMI) 21.9 Intake and Output for Last 24 Hours 09/07/18 09/08/18 09/09/18 23:59 23:59 23:59 Intake Total 752 / 752 1296 / 1296 Output Total 100 / 100 700 / 700 Balance 652 / 652 596 / 596 Microbiology Past 72 Hours 09/09/18 10:23 Gram Stain - Final Tissue - Other 09/09/18 10:23 Gram Stain - Final Wound Abcess - Other 09/05/18 11:37 Blood Culture - Preliminary Blood Culture (Wb) - Anticubital Right 09/04/18 17:20 Bacteria Detection (PCR) - Final Blood Culture (Wb) - Anticubital Left Staphylococcus aureus Blood Culture - Preliminary Staphylococcus aureus 09/04/18 17:20 Blood Culture - Final Blood Culture (Wb) - Arm Left Staphylococcus aureus 09/04/18 09:10 Gram Stain - Final Sputum, Expectorated/Coughed Respiratory Culture - Final Staphylococcus aureus Laboratory Tests Past 24 Hrs 09/09/18 09/09/18 09/09/18 06:20 06:20 06:20 WBC 10.9 RBC 3.27 L Hgb 9.5 L Hct 29.7 L MCV 90.8 MCH 29.1 MCHC 32.0 RDW 17.1 H RDW Differential 56.2 H Plt Count 196 MPV 11.7 Immature Gran % (Auto) 0.900 Neut % (Auto) 62.5 Lymph % (Auto) 10.6 L [place] % (Auto) 17.2 H Eos % (Auto) 8.3 H Baso % (Auto) 0.5 Absolute Neuts (auto) 6.8 Absolute Lymphs (auto) 1.16 Total Counted Not Reportable PT 14.3 INR 1.1 APTT 38.0 H Sodium 136 Potassium 5.1 Chloride 101 Carbon Dioxide 20.0 L Anion Gap 15 BUN 52 H Creatinine 8.77 H* Estim Creat Clear Calc 7.04 Est GFR (MDRD) Af Amer 8 L Est GFR (MDRD) Non-Af 7 L BUN/Creatinine Ratio 5.9 L Glucose 82 Calcium 9.0 Total Bilirubin 2.20 H Direct Bilirubin 1.06 H AST 70 H ALT 52 Alkaline Phosphatase 259 H Total Protein 8.1 Albumin 2.4 L Globulin 5.7 H Discharge Activity: Return to Normal Activity Home Medications: Medications to take at Discharge Benzonatate [Tessalon Perle] 100 mg PO TID PRN PRN 07/28/13 Sevelamer Carbonate [Renvela] 1,600 mg PO TID 07/28/13 acetaminophen 325 mg capsule 650 mg PO Q6H PRN 02/26/18 adapalene 0.3 % topical gel 1 applic TOPICAL QPM 02/26/18 albuterol sulfate HFA 90 mcg/actuation aerosol inhaler 1 puff INHALATION Q6H PRN 02/26/18 nifedipine ER 60 mg tablet,extended release 120 mg PO DAILY #180 tab 04/11/18 Amox/Clavulanate Tablet [Augmentin Tablet] 500 mg PO DAILY #7 tablet 09/04/18 Folic Acid/Vit B Complex and C [Renal Vitamin Tablet] 1 tab PO DAILY 09/04/18 Guaifenesin [Mucinex] 600 mg PO DAILY PRN 09/04/18 Metoprolol Tartrate [Lopressor (beta yenny)] 50 mg PO BID 09/04/18 Nepro Liquid [Nepro Carb Steady] 120 ml PO 4X/DAY #100 liquid 09/04/18 Pantoprazole Sodium 40 mg PO DAILY 09/04/18 Following Prescrptions Were Given to Patient: Amox/Clavulanate Tablet [Augmentin Tablet] 500 mg PO DAILY #7 tablet Nepro Liquid [Nepro Carb Steady] 120 ml PO 4X/DAY #100 liquid Primary Care Physician: Brown,Magdiel R, DO [Primary Care Provider] - Please follow up with your Primary Care Physician in: within 1-2 weeks of discharge Please Follow Up With: Ashley Gross MD When: as scheduled for dialysis Disposition: [facility] Minutes spent on discharge:: 45 Patient Condition:: Guarded Medical Necessity - Tobacco Use Smoking Status: Former smoker Tobacco Use: Non-smoker Meaningful Use Info Meaningful Use Diagnoses (Choose all that apply): None applicable Code Visit Inpatient E&M: 70794 Disch Hosp
--- NOTE | 2018-09-09 19:36 | DIALYSIS ---
HD tx stopped 1 hour early per surgeon's request, pt to be transferred to [facility] to be under the care of Dr. Wiggins who placed AVG; tolerated treatment well, accessed via ROBLES AVG, UF 600mL, moderate amount of bleeding when needles pulled, stasis achieved after sites held x10 mins each; sp I&D of abscess near AVG, moderate amount of sanguineous drainage seeping from I&D dressing before and during HD treatment, pressure held x40 mins over I&D site during HD, bleeding did slow considerably, redressed surgical site with patient RN, Dr. Morel notified via telephone
[2018-09-09 20:31] LABS: Hematocrit 24.9 % (40-54); Hemoglobin 8.2 g/dl (13.0-16.5)
[2018-09-10] VITALS (14 sets, daily range): BP systolic 135–160; BP diastolic 87–105; PULSE 76–94; RESP 14–34; TEMP 36.7–37.6; O2SAT 94–99
--- NOTE | 2018-09-10 04:14 | NURSING ---
This RN was called into patients room by other staff veterinarian. When this RN walked into patients room the other staff veterinarian had the dressing to the ROBLES partially off, patient had called out stating that it was bleeding. New dressing reapplied, folded gauze placed, ABD pad, kerlix, then light latanya wrap. During assessment packing remains in place and bruie and thrill present in ROBLES fistula. Radial pulse present, denies N/T, able to wiggle fingers. This RN went back into patients room approximately 1 hour later to reassess new dressing, dressing remains CDI.
[2018-09-10 06:50] LABS: Absolute Lymphocyte Count 1.95 X10^3/ul (0.83-4.51); Absolute Neutrophil Count 6.1 X10^3/uL (2.0-7.7); Basophil# 0.07 X10^3/uL; Basophil% 0.6 % (0-1); Eosinophil# 0.46 X10^3/uL; Eosinophils% 4.1 % (0-5); Hematocrit 25.5 % (40-54); Hemoglobin 8.2 g/dl (13.0-16.5); Lymphocyte # 1.95 X10^3/ul (4.0); Lymphocyte % 17.5 % (19-41); Mean Corp Hgb Conc 32.2 g/gl (32-36); Mean Corpuscular Volume 90.1 fL (80-94); Mean Platelet Vol. 12.8 fl (6.2-12.0); Monocyte# 2.36 X10^3/uL; Monocyte% 21.2 % (0-10); Neutrophil # 6.14 X10^3/uL (2.7-7.7); Neutrophil % 55.1 % (47-70); Platelet Count 213 K/mm3 (150-450); RBC Distribution Width CV 16.8 % (11.6-14.6); RBC Distribution Width SD 52.3 fl (35.1-43.9); Red Blood Count 2.83 M/mm3 (4.6-6.2); White Blood Count 11.2 K/mm3 (4.4-11.0)
[2018-09-10 06:51] LABS: Differential Indicated SCAN CRITERIA MET; POSITIVE COUNT NO; POSITIVE DIFFERENTIAL YES; POSITIVE MORPHOLOGY NO
--- NOTE | 2018-09-10 08:05 | NURSING ---
This nurse called [facility] to get an update on a bed for transfer, Beba from [facility] stated that the patient was not on the list for transfer at this time and that currently there are 10 patients in their ER waiting for ICU beds and 22 patients waiting for floor beds. Beba requested a demographics sheet be faxed at this time. This nurse called Dr. Wayne Rivers to notify him that patient is not currently on the list for a bed. Dr. Rivers aware of situation and stated he would have Trinity STEPHENS work on this as he is getting ready to go into surgery.
[2018-09-10] MEDS: guaiFENesin 1,200 MG Tablet 1200 MG PO (08:34)
[2018-09-10] MEDS: Metoprolol Tartrate 50 MG Tablet PO (08:34)
[2018-09-10] MEDS: NIFEdipine 60 MG Tablet 120 MG PO (08:34)
[2018-09-10] MEDS: Pantoprazole Sodium 40 MG Tablet PO (08:35)
[2018-09-10] MEDS: Folic Acid/Vitamin B Comp W-C 1 Capsule 1 CAP PO (08:35)
[2018-09-10] MEDS: Na Biphos/Potassium Phosphate PACKET 1 PACKET PO ×4 (08:35→20:57)
--- NOTE | 2018-09-10 09:35 | PCM.PN.SRG ---
Patient Problems: Active and Suspected Problems (Last Reviewed 09/04/18 @ 05:01 by Gio Aponte MD) Community acquired pneumonia (Acute) ESRD (end stage renal disease) on dialysis (Acute) Bacteremia (Acute) Problem with dialysis access (Acute) Subjective: Patient evaluated this morning. 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 Patient denies pain at the fistula site. He completed dialysis however was stopped 1 hour early. Patient tolerated this well. - Physical Exam General: Alert, Oriented x3, Cooperative Extremities: - - Right upper extremity AV fistula- good pulse, bruit, and thrill. Dressing had blood from the gauze, ABD up to the Kerlix. Dressing was completely removed. NO oozing was noted from the open wound at the fistula site. Wick is in place. Gauze, ABD pad, Kerlix and CORTEZ wrap was placed. He was able to move his fingers. Good radial pulse. Good bruit, thrill and pulse in the fistula noted. Vital Signs Temp Pulse Resp BP Pulse Ox 99.4 F H 82 34 H 156/96 H 96 09/10/18 02:30 09/10/18 08:34 09/10/18 07:46 09/10/18 08:34 09/10/18 08:38 Oxygen Flow Rate (L/min) 1 Oxygen Delivery Method Room Air Weight: 118 lb 6.212 oz Body Mass Index (BMI) 21.9 Intake and Output for Last 24 Hours 09/08/18 09/09/18 09/10/18 23:59 23:59 23:59 Intake Total 752 / 752 1536 / 1536 240 / 240 Output Total 100 / 100 700 / 700 Balance 652 / 652 836 / 836 240 / 240 Microbiology Past 72 Hours 09/09/18 10:23 Gram Stain - Final Tissue - Other Wound Culture - Preliminary Staphylococcus aureus 09/05/18 11:37 Blood Culture - Preliminary Blood Culture (Wb) - Anticubital Right Staphylococcus aureus 09/04/18 17:20 Bacteria Detection (PCR) - Final Blood Culture (Wb) - Anticubital Left Staphylococcus aureus Blood Culture - Final Staphylococcus aureus 09/09/18 10:23 Gram Stain - Final Wound Abcess - Other 09/04/18 17:20 Blood Culture - Final Blood Culture (Wb) - Arm Left Staphylococcus aureus 09/04/18 09:10 Gram Stain - Final Sputum, Expectorated/Coughed Respiratory Culture - Final Staphylococcus aureus Laboratory Tests Past 24 Hrs 09/09/18 09/09/18 09/10/18 20:22 20:22 06:04 WBC 11.2 H RBC 2.83 L Hgb 8.2 L 8.2 L Hct 24.9 L 25.5 L MCV 90.1 MCH 29.0 MCHC 32.2 RDW 16.8 H RDW Differential 52.3 H Plt Count 213 MPV 12.8 H Immature Gran % (Auto) 1.500 H Neut % (Auto) 55.1 Lymph % (Auto) 17.5 L [place] % (Auto) 21.2 H Eos % (Auto) 4.1 Baso % (Auto) 0.6 Absolute Neuts (auto) 6.1 Absolute Lymphs (auto) 1.95 Total Counted Not Reportable Blood Type O POSITIVE Antibody Screen NEGATIVE Crossmatch See Detail Medical Necessity - Tobacco Use Smoking Status: Former smoker Tobacco Use: Non-smoker Assessment/Plan All Active Problems (Last Reviewed 09/04/18 @ 05:01 by Gio Aponte MD) Community acquired pneumonia (Acute) ESRD (end stage renal disease) on dialysis (Acute) Bacteremia (Acute) Problem with dialysis access (Acute) I am following this patient in conjunction with Dr. Rivers. S/p Incision and drainage of Right upper extremity infected AV fistula graft Hgb stable at 8.2. At this point when the dressing was removed the oozing had stopped. Continue to watch for increased bleeding at the fistula site If bleeding increases, patient may have to be transferred to our ICU while awaiting transfer to [facility] MICU No bed available in the MICU at [facility] at this time. Will advance wick later today We will continue to closely monitor this patient. Code Visit Inpatient E&M: 67372 Subs Hosp L1 - No charge
--- NOTE | 2018-09-10 09:42 | NURSING ---
Transfer form faxed to Dr. Rivers's office at this time per his request.
--- NOTE | 2018-09-10 09:47 | PCM.PN.BLA ---
Progress Note Transfer line contacted and surgical disease process/issues discussed. Bed status is currently full in MICU which is where Dr Wiggins requested transfer. Pt is to be transferred to MICU on medical service with Dr Wiggins as surgical consult. Pt's current status reviewed. Findings suggest slowing ooz from debrided tissue but no current evidence for suture line involvement. I do not plan additional prosthetic devices to be placed at this time. I would recommend groins be saved for possible GSV fistula--will differ to Dr Wiggins.
--- NOTE | 2018-09-10 09:49 | PN.SURG_ITS ---
Patient Problems: Active and Suspected Problems (Last Reviewed 09/04/18 @ 05:01 by Gio Aponte MD) Community acquired pneumonia (Acute) ESRD (end stage renal disease) on dialysis (Acute) Bacteremia (Acute) Problem with dialysis access (Acute) Subjective: Patient evaluated this morning. 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 Patient denies pain at the fistula site. He completed dialysis however was stopped 1 hour early. Patient tolerated this well. - Physical Exam General: Alert, Oriented x3, Cooperative Extremities: - - Right upper extremity AV fistula- good pulse, bruit, and thrill. Dressing had blood from the gauze, ABD up to the Kerlix. Dressing was completely removed. NO oozing was noted from the open wound at the fistula site. Wick is in place. Gauze, ABD pad, Kerlix and CORTEZ wrap was placed. He was able to move his fingers. Good radial pulse. Good bruit, thrill and pulse in the fistula noted. Vital Signs Temp Pulse Resp BP Pulse Ox 99.4 F H 82 34 H 156/96 H 96 09/10/18 02:30 09/10/18 08:34 09/10/18 07:46 09/10/18 08:34 09/10/18 08:38 Oxygen Flow Rate (L/min) 1 Oxygen Delivery Method Room Air Weight: 118 lb 6.212 oz Body Mass Index (BMI) 21.9 Intake and Output for Last 24 Hours 09/08/18 09/09/18 09/10/18 23:59 23:59 23:59 Intake Total 752 / 752 1536 / 1536 240 / 240 Output Total 100 / 100 700 / 700 Balance 652 / 652 836 / 836 240 / 240 Microbiology Past 72 Hours 09/09/18 10:23 Gram Stain - Final Tissue - Other Wound Culture - Preliminary Staphylococcus aureus 09/05/18 11:37 Blood Culture - Preliminary Blood Culture (Wb) - Anticubital Right Staphylococcus aureus 09/04/18 17:20 Bacteria Detection (PCR) - Final Blood Culture (Wb) - Anticubital Left Staphylococcus aureus Blood Culture - Final Staphylococcus aureus 09/09/18 10:23 Gram Stain - Final Wound Abcess - Other 09/04/18 17:20 Blood Culture - Final Blood Culture (Wb) - Arm Left Staphylococcus aureus 09/04/18 09:10 Gram Stain - Final Sputum, Expectorated/Coughed Respiratory Culture - Final Staphylococcus aureus Laboratory Tests Past 24 Hrs 09/09/18 09/09/18 09/10/18 20:22 20:22 06:04 WBC 11.2 H RBC 2.83 L Hgb 8.2 L 8.2 L Hct 24.9 L 25.5 L MCV 90.1 MCH 29.0 MCHC 32.2 RDW 16.8 H RDW Differential 52.3 H Plt Count 213 MPV 12.8 H Immature Gran % (Auto) 1.500 H Neut % (Auto) 55.1 Lymph % (Auto) 17.5 L [place] % (Auto) 21.2 H Eos % (Auto) 4.1 Baso % (Auto) 0.6 Absolute Neuts (auto) 6.1 Absolute Lymphs (auto) 1.95 Total Counted Not Reportable Blood Type O POSITIVE Antibody Screen NEGATIVE Crossmatch See Detail Medical Necessity - Tobacco Use Smoking Status: Former smoker Tobacco Use: Non-smoker Assessment/Plan All Active Problems (Last Reviewed 09/04/18 @ 05:01 by Gio Aponte MD) Community acquired pneumonia (Acute) ESRD (end stage renal disease) on dialysis (Acute) Bacteremia (Acute) Problem with dialysis access (Acute) I am following this patient in conjunction with Dr. Rivers. S/p Incision and drainage of Right upper extremity infected AV fistula graft Hgb stable at 8.2. At this point when the dressing was removed the oozing had stopped. Continue to watch for increased bleeding at the fistula site If bleeding increases, patient may have to be transferred to our ICU while awaiting transfer to [facility] MICU No bed available in the MICU at [facility] at this time. Will advance wick later today We will continue to closely monitor this patient. Code Visit Inpatient E&M: 29183 Subs Hosp L1 - No charge
--- NOTE | 2018-09-10 13:25 | PN_ITS ---
Subjective: All events of the past 24 hours been reviewed. Patient is still awaiting a bed at [facility] for transfer. The bleeding from the right upper extremity has mostly resolved He has no complaints Hemoglobin is stable at 8.2. White blood cell count is 11.2 with an unremarkable differential. He has no complaints at this time. Objective: - Physical Exam General: Alert, Oriented x3, Cooperative, No apparent distress HEENT: Atraumatic, PERRLA, EOMI, Normocephalic Oral: Moist Mucosa Neck: Supple, No JVD, No Nodes, Trachea Midline Lungs: Clear to auscultation, No rhonchi, No wheeze, No rales, Diminished, - - Not tachypneic at rest, no accessory muscle use and no conversational dyspnea Cardiovascular: Regular rate, Regular Rhythm, Normal S1, Normal S2, No rub noted, No Gallop Abdomen: Bowel Sounds Present, Soft, Non Tender, Non-Distended Extremities: No clubbing, No cyanosis, No edema, - - there is a pressure dressing on the RUE to keep bleeding under control Skin: No rashes, No breakdown Neurological: Cranial nerves II-XII grossly intact, Neuro grossly intact Psych/Mental Status: Normal Affect, Appropriate - Physical Exam Vital Signs Temp Pulse Resp BP Pulse Ox 98.5 F 77 20 H 136/89 H 94 09/10/18 12:26 09/10/18 12:26 09/10/18 12:26 09/10/18 12:26 09/10/18 12:26 Oxygen Flow Rate (L/min) 1 Oxygen Delivery Method Room Air Weight: 118 lb 6.212 oz Body Mass Index (BMI) 21.9 Intake and Output for Last 24 Hours 09/08/18 09/09/18 09/10/18 23:59 23:59 23:59 Intake Total 752 / 752 1536 / 1536 590 / 590 Output Total 100 / 100 700 / 700 200 / 200 Balance 652 / 652 836 / 836 390 / 390 Microbiology Past 72 Hours 09/09/18 10:23 Gram Stain - Final Wound Abcess - Other Wound Culture - Preliminary Staphylococcus aureus 09/09/18 10:23 Gram Stain - Final Tissue - Other Wound Culture - Preliminary Staphylococcus aureus 09/05/18 11:37 Blood Culture - Preliminary Blood Culture (Wb) - Anticubital Right Staphylococcus aureus 09/04/18 17:20 Bacteria Detection (PCR) - Final Blood Culture (Wb) - Anticubital Left Staphylococcus aureus Blood Culture - Final Staphylococcus aureus 09/04/18 17:20 Blood Culture - Final Blood Culture (Wb) - Arm Left Staphylococcus aureus Laboratory Tests Past 24 Hrs 09/09/18 09/09/18 09/10/18 20:22 20:22 06:04 WBC 11.2 H RBC 2.83 L Hgb 8.2 L 8.2 L Hct 24.9 L 25.5 L MCV 90.1 MCH 29.0 MCHC 32.2 RDW 16.8 H RDW Differential 52.3 H Plt Count 213 MPV 12.8 H Immature Gran % (Auto) 1.500 H Neut % (Auto) 55.1 Lymph % (Auto) 17.5 L [place] % (Auto) 21.2 H Eos % (Auto) 4.1 Baso % (Auto) 0.6 Absolute Neuts (auto) 6.1 Absolute Lymphs (auto) 1.95 Total Counted Not Reportable Blood Type O POSITIVE Antibody Screen NEGATIVE Crossmatch See Detail Medical Necessity - Tobacco Use Smoking Status: Former smoker Tobacco Use: Non-smoker Assessment/Plan All Active Problems (Last Reviewed 09/04/18 @ 05:01 by Gio Aponte MD) Community acquired pneumonia (Acute) ESRD (end stage renal disease) on dialysis (Acute) Bacteremia (Acute) Problem with dialysis access (Acute) Impressions 1. Severe sepsis secondary to community-acquired pneumonia secondary to MSSA 2. MSSA bacteremia 3. possible infected AV fistula with pustule present - Dr. Salguero has consulted Dr. Rivers to evaluate 4. Suspected loculated left pleural effusion-possible empyema 5. End-stage renal disease on hemodialysis 6. Hypertension 7. Scleroderma/Sjogren's syndrome/Raynaud's disease 8. Hypophosphatemia 9. Hypokalemia 10. Anemia of chronic renal failure 11. Thrombocytopenia 12. Hyponatremia 13. Community-acquired pneumonia await open bed at [facility] for transfer Continue the current orders. Code Visit Inpatient E&M: 83210 Subs Hosp L2
--- NOTE | 2018-09-10 13:54 | PCM.PN.REN ---
Patient Problems: Active and Suspected Problems (Last Reviewed 09/04/18 @ 05:01 by Gio Aponte MD) Community acquired pneumonia (Acute) ESRD (end stage renal disease) on dialysis (Acute) Bacteremia (Acute) Problem with dialysis access (Acute) Subjective: Hemodialysis session was aborted early yesterday due to continuous bleeding from the I&D surgical site Bleeding has stopped today as per the patient. The right arm is wrapped. No nausea no vomiting. No shortness of breath. No chest pain - Physical Exam General: Alert, Oriented x3 HEENT: Atraumatic Oral: Moist Mucosa Neck: Supple, No JVD Lungs: Clear to auscultation, Normal air movement, No rhonchi, No wheeze Cardiovascular: Regular rate, Regular Rhythm, Normal S1, Normal S2 Abdomen: Bowel Sounds Present, Soft, Non Tender, Non-Distended Extremities: No clubbing, No cyanosis, No edema Skin: No rashes Musculoskeletal: No Tenderness to Palpation of Joints or Extremities Lymphatic: No Cervical, Supraclavicular, or Inguinal Adenopathy Neurological: Cranial nerves II-XII grossly intact, Neuro grossly intact Psych/Mental Status: Normal Affect Vital Signs Temp Pulse Resp BP Pulse Ox 98.5 F 77 20 H 136/89 H 94 09/10/18 12:26 09/10/18 12:26 09/10/18 12:26 09/10/18 12:26 09/10/18 12:26 Oxygen Flow Rate (L/min) 1 Oxygen Delivery Method Room Air Weight: 53.7 kg Body Mass Index (BMI) 21.9 Intake and Output for Last 24 Hours 09/08/18 09/09/18 09/10/18 23:59 23:59 23:59 Intake Total 752 / 752 1536 / 1536 620 / 620 Output Total 100 / 100 700 / 700 200 / 200 Balance 652 / 652 836 / 836 420 / 420 Microbiology Past 72 Hours 09/09/18 10:23 Gram Stain - Final Wound Abcess - Other Wound Culture - Preliminary Staphylococcus aureus 09/09/18 10:23 Gram Stain - Final Tissue - Other Wound Culture - Preliminary Staphylococcus aureus 09/05/18 11:37 Blood Culture - Preliminary Blood Culture (Wb) - Anticubital Right Staphylococcus aureus 09/04/18 17:20 Bacteria Detection (PCR) - Final Blood Culture (Wb) - Anticubital Left Staphylococcus aureus Blood Culture - Final Staphylococcus aureus Laboratory Tests Past 24 Hrs 09/09/18 09/09/18 09/10/18 20:22 20:22 06:04 WBC 11.2 H RBC 2.83 L Hgb 8.2 L 8.2 L Hct 24.9 L 25.5 L MCV 90.1 MCH 29.0 MCHC 32.2 RDW 16.8 H RDW Differential 52.3 H Plt Count 213 MPV 12.8 H Immature Gran % (Auto) 1.500 H Neut % (Auto) 55.1 Lymph % (Auto) 17.5 L [place] % (Auto) 21.2 H Eos % (Auto) 4.1 Baso % (Auto) 0.6 Absolute Neuts (auto) 6.1 Absolute Lymphs (auto) 1.95 Total Counted Not Reportable Blood Type O POSITIVE Antibody Screen NEGATIVE Crossmatch See Detail Medical Necessity - Tobacco Use Smoking Status: Former smoker Tobacco Use: Non-smoker Assessment/Plan All Active Problems (Last Reviewed 09/04/18 @ 05:01 by Gio Aponte MD) Community acquired pneumonia (Acute) ESRD (end stage renal disease) on dialysis (Acute) Bacteremia (Acute) Problem with dialysis access (Acute) 1. 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 HD TTS.Pt goes to [facility]. Last hemodialysis was a day September 09. Yesterday's hemodialysis session was aborted early due to continuous bleeding from the I&D surgical site No need for hemodialysis today. Next hemodialysis session is tomorrow. We will use the same AV fistula if no bleeding tomorrow. 2. Anemia. Continue JUANITA with HD. Hemoglobin has been stable despite I&D surgical site bleeding 3. Hypophosphatemia. Due to P binder. Sevelamer was stopped. Level was 1.5 on September 08. Please d/c patient without P binder 4. HTN. BP is controlled. Continue current medications. 5. Staph aureus pneumonia/BSI. Patient needs BR[facility]N to rule out endocarditis. Antibiotic per ID and hospital medicine service. 6-AV fistula abscess most probably from bacteremia, status post I&D today September 09. Patient having bleeding from the I&D surgical site. Dr. Rivers knowing the plan to transfer the patient to [facility] when ICU bed available Renal team will continue to follow . Please call with any question DIANE REDMAN MD [phone]
--- NOTE | 2018-09-10 14:11 | PN.ID_ITS ---
Patient Problems: Active and Suspected Problems (Last Reviewed 09/04/18 @ 05:01 by Gio Aponte MD) Community acquired pneumonia (Acute) ESRD (end stage renal disease) on dialysis (Acute) Bacteremia (Acute) Problem with dialysis access (Acute) Subjective: Feeling ok, still some cough, some loose stool. Had I&D of RUE graft yesterday by Dr. Rivers, HD had to be stopped early due to bleeding. Transfer to [place] pending. - Physical Exam General: Alert, Cooperative, No apparent distress Lungs: Clear to auscultation, Normal air movement Cardiovascular: Regular rate, Regular Rhythm, Murmur Abdomen: Soft, Non Tender, Non-Distended Skin: No rashes, - - ? small splinter hemorrhages on R 4th and 5th finger, R 1st toe Vital Signs Temp Pulse Resp BP Pulse Ox 98.5 F 77 20 H 136/89 H 94 09/10/18 12:26 09/10/18 12:26 09/10/18 12:26 09/10/18 12:26 09/10/18 12:26 Oxygen Flow Rate (L/min) 1 Oxygen Delivery Method Room Air Weight: 53.7 kg Body Mass Index (BMI) 21.9 Intake and Output for Last 24 Hours 09/08/18 09/09/18 09/10/18 23:59 23:59 23:59 Intake Total 752 / 752 1536 / 1536 620 / 620 Output Total 100 / 100 700 / 700 200 / 200 Balance 652 / 652 836 / 836 420 / 420 Microbiology Past 72 Hours 09/05/18 11:37 Blood Culture - Final Blood Culture (Wb) - Anticubital Right Staphylococcus aureus 09/09/18 10:23 Gram Stain - Final Wound Abcess - Other Wound Culture - Preliminary Staphylococcus aureus 09/09/18 10:23 Gram Stain - Final Tissue - Other Wound Culture - Preliminary Staphylococcus aureus 09/04/18 17:20 Bacteria Detection (PCR) - Final Blood Culture (Wb) - Anticubital Left Staphylococcus aureus Blood Culture - Final Staphylococcus aureus Laboratory Tests Past 24 Hrs 09/09/18 09/09/18 09/10/18 20:22 20:22 06:04 WBC 11.2 H RBC 2.83 L Hgb 8.2 L 8.2 L Hct 24.9 L 25.5 L MCV 90.1 MCH 29.0 MCHC 32.2 RDW 16.8 H RDW Differential 52.3 H Plt Count 213 MPV 12.8 H Immature Gran % (Auto) 1.500 H Neut % (Auto) 55.1 Lymph % (Auto) 17.5 L [place] % (Auto) 21.2 H Eos % (Auto) 4.1 Baso % (Auto) 0.6 Absolute Neuts (auto) 6.1 Absolute Lymphs (auto) 1.95 Total Counted Not Reportable Blood Type O POSITIVE Antibody Screen NEGATIVE Crossmatch See Detail Medical Necessity - Tobacco Use Smoking Status: Former smoker Tobacco Use: Non-smoker Route of nutrition/ use of supplements: [] Nutritional Intake: [] IV Site: [] Luther Catheter: [] - Assessment/Plan Antibiotics: [] Assessment/Plan: [] Active and Suspected Problems (Last Reviewed 09/04/18 @ 05:01 by Gio Aponte MD) Community acquired pneumonia (Acute) ESRD (end stage renal disease) on dialysis (Acute) MSSA bacteremia, likely pneumonia as source, complicated by RUE graft abscess - concern for endocarditis with murmur and splinter hemorrhages. Narrowed abx to cefazolin. Had surgical I&D by Dr. Rivers of graft on 09/09, cx with staph aureus; now complicated by bleeding. Thoracic u/s show small loculated effusion; pulm following, may need drainage. Repeat bcx neg since 09/06, repeated yesterday during HD from fistula. Continue cefazolin. Plan on [facility] this admit. Transfer planned to [place]. diarrhea - cdiff neg 09/05 Will follow, d/w Dr. Morel.
--- NOTE | 2018-09-10 14:18 | NURSING ---
STUDENT NURSES CHARTING REVEIWED FOR EDUCATIONAL LEARNING PURPOSES. BY CHIRAG HODGES
--- NOTE | 2018-09-10 14:48 | PCM.PN.BLA ---
Progress Note Evaluated patient's right upper extremity open wound and fistula. Dressing was completely removed. There was noted to be a quarter sized area of purulent/ bloody drainage on the gauze. Wick was advanced and trimmed. Single 4x4 was folded in half and placed over open wound followed by half of a Kerlix roll and altanya wrap which was loosely wrapped. Patient is currently not in pain at the fistula site. Fistula continues to have a good bruit, thrill and pulse. Right radial pulse palpated. Code Visit Inpatient E&M: 35309 Subs Hosp L1 - No charge
--- NOTE | 2018-09-10 14:52 | PN_ITS ---
Progress Note Evaluated patient's right upper extremity open wound and fistula. Dressing was completely removed. There was noted to be a quarter sized area of purulent/ bloody drainage on the gauze. Wick was advanced and trimmed. Single 4x4 was folded in half and placed over open wound followed by half of a Kerlix roll and latanya wrap which was loosely wrapped. Patient is currently not in pain at the fistula site. Fistula continues to have a good bruit, thrill and pulse. Right radial pulse palpated. Code Visit Inpatient E&M: 05136 Subs Hosp L1 - No charge
[2018-09-10] MEDS: Cefazolin 1 GM/50 ML BAG IV (16:55)
--- NOTE | 2018-09-14 20:24 | PCM.DC.SUM ---
Discharge Date and Diagnosis Date of Admission: 09/04/18 Date of Discharge: 09/10/18 - Primary Discharge Diagnosis Severe sepsis secondary to community acquired pneumonia (Acute) likely secondary to MSSA MSSA bacteremia in 2 of 2 blood cultures drawn on 09/04/2018. ESRD (end stage renal disease) on dialysis (Acute) abscess distal end of the AV fistula in the RUE bleeding complication post I&D abscess on 09/09/[address] Rivers Small loculated left pleural effusion Hypokalemia Thrombocytopenia Acute hypoxemic respiratory insufficiency secondary to MSSA pneumonia Hypophosphatemia - Secondary Discharge Diagnosis Chronic Problems (Last Reviewed 09/04/18 @ 05:01 by Gio Aponte MD) CKD (chronic kidney disease), stage V (Chronic) Pulmonary fibrosis (Chronic) Systemic sclerosis (Chronic) Renal failure (Chronic) Raynaud disease (Chronic) Anemia (Chronic) Systemic sclerosis (Chronic) Osteoarthritis (Chronic) Hypokalemia (Chronic) HTN (hypertension) (Chronic) Generalized edema (Chronic) CKD (chronic kidney disease), stage V (Chronic) Anemia (Chronic) Alcohol abuse (Chronic) Acute renal failure syndrome (Chronic) Hospital Course and Treatment Imaging Results: Clinical Impression(s) from Imaging Studies Chest X-Ray 09/05/18 11:24 IMPRESSION: Left lower lobe infiltration and small left pleural effusion. Electronically Signed: Wilton Walker, at 11:53 EST , Service support , Chest CT 09/05/18 15:58 IMPRESSION: Atelectasis and/or infiltrate in the left lower lobe. Cannot exclude neoplasm. Small probably loculated effusion in the posterior lower left hemithorax. Nodules in the right and left apices as described, recommend follow-up in 4-6 months. Suspicious upper mediastinal adenopathy. Ectasia of the ascending aorta. Electronically Signed: Peyman Crum MD at 20:41 EST , Service support , Chest Ultrasound 09/08/18 14:18 IMPRESSION: Small left pleural effusion with septations. Electronically Signed: Wilton Walker, at 15:54 EDT , Service support , Microbiology 09/06/18 08:30 Blood Culture (Wb) - Dialysis/Fistula Blood Culture - Final Staphylococcus aureus 09/09/18 10:23 Wound Abcess - Other Gram Stain - Final 09/09/18 10:23 Wound Abcess - Other Wound Culture - Final Staphylococcus aureus 09/09/18 10:23 Wound Abcess - Other Anaerobic Culture - Final No anaerobic bacteria isolated. 09/09/18 10:23 Tissue - Other Gram Stain - Final 09/09/18 10:23 Tissue - Other Wound Culture - Final Staphylococcus aureus 09/09/18 10:23 Tissue - Other Anaerobic Culture - Final No anaerobic bacteria isolated. 09/09/18 15:15 Blood Culture (Wb) - No Site/Description Given Blood Culture - Preliminary No growth in 48 hours. 09/05/18 11:37 Blood Culture (Wb) - Anticubital Right Blood Culture - Final Staphylococcus aureus 09/04/18 17:20 Blood Culture (Wb) - Anticubital Left Bacteria Detection (PCR) - Final Staphylococcus aureus 09/04/18 17:20 Blood Culture (Wb) - Anticubital Left Blood Culture - Final Staphylococcus aureus 09/04/18 17:20 Blood Culture (Wb) - Arm Left Blood Culture - Final Staphylococcus aureus 09/04/18 09:10 Sputum, Expectorated/Coughed Gram Stain - Final 09/04/18 09:10 Sputum, Expectorated/Coughed Respiratory Culture - Final Staphylococcus aureus 09/05/18 02:00 Stool C. difficile DNA Amplification - Final 09/04/18 09:10 Urine, Clean Catch Streptococcus pneumoniae Antigen (M - Final 09/04/18 09:10 Urine, Clean Catch Legionella Antigen - Final 09/04/18 05:05 Mucosa - Nasopharyngeal Influenza Types A,B Direct FA (SAKINA) - Final Dr. Wayne Salguero-infectious disease Dr. Wayne Rivers-general surgery/vascular surgery Dr. Fahad Jose-pulmonary medicine Dr. Morel-[facility] Operations: None Procedures: - - Incision and drainage of abscess distal end of right upper extremity AV fistula by Dr. Wayne Rivers on 09/09/2018 Summary of Care Provided: The patient is a 58-year-old male with a past medical history of chronic kidney disease stage V on hemodialysis, pulmonary fibrosis, systemic sclerosis, Raynaud's disease, osteoarthritis, hypertension, alcohol abuse and chronic anemia who presented to the emergency department at [facility] with c/o chills and cough productive of green/yellow sputum. Chest x-ray showed either a small pleural effusion or consolidation in the left base. White blood cell count was 15.9 and the lactic acid was 4.8. BUN was 48 and the creatinine was 8.3. He was transferred to [facility] for tx of possible pneumonia and for HD. He is a pt of Dr. George from [facility]. He was started Zosyn and vancomycin at admission to [facility] and received azithromycin and Rocephin at [facility] emergency department. Sputum and blood cultures obtained on 09/04/18 were positive for methicillin sensitive staph aureus (2 of 2). Repeat blood culture on 09/05/2018 and 09/06/18 had no growth. Rapid influenza swab was negative. Dr. Wayne Salguero from infectious disease was consulted and he had concern for the AV fistula and heart involvement. A CT scan of the chest was ordered and showed atelectasis and/or infiltrate in the left lower lobe. There was a small probably loculated effusion in the left hemithorax. There were nodules in the right and left apices. There was suspicious upper mediastinal adenopathy. Dr. Fahad Jose from pulmonary was consulted to evaluate the pleural effusion and a thoracic ultrasound was ordered and showed a small left pleural effusion with septations. Dr. Jose did not feel this needed to be addressed at this time. [facility] was recommended by Dr. Salguero but was to be done after I&D of the AV fistula abscess on 09/09/2018. He was taken to the OR by Dr. Rivers on 09/09/2018 and an incision and drainage of the abscess was undertaken. Culture of the purulent material was sent to the lab. There were 1+ white blood cells. The white blood cell count decreased from 16.7 at admission to 10.9 on the date of discharge. The left shift had resolved. Hemoglobin was stable at 9.5. Unfortunately the surgical site started bleeding after he was transferred back from surgery and despite holding pressure it continued to bleed. The patient had a shortened HD session on 09/09 due to the bleeding. Dr. Rivers was in contact with Dr. Rigo Wiggins at [facility] and he was agreeable to seeing the patient however, he was going to contact the medical intensive care unit and have him admitted to the MICU with him on consult. A bed was not available on 09/09 and the patient was not transferred until 09/10. By the time he was transferred the bleeding from the I&D site had stopped. Hemoglobin is stable at 8.2. - Physical Exam General: Alert, Oriented x3, Cooperative, No apparent distress HEENT: Atraumatic, PERRLA, EOMI, Normocephalic Oral: Moist Mucosa Neck: Supple, No JVD, No Nodes, Trachea Midline Lungs: Clear to auscultation, No rhonchi, No wheeze, No rales, Diminished, - - Not tachypneic at rest, no accessory muscle use and no conversational dyspnea Cardiovascular: Regular rate, Regular Rhythm, Normal S1, Normal S2, No rub noted, No Gallop Abdomen: Bowel Sounds Present, Soft, Non Tender, Non-Distended Extremities: No clubbing, No cyanosis, No edema, there is apressure dressing around the R upper arm to control bleeding. Skin: No rashes, No breakdown Neurological: Cranial nerves II-XII grossly intact, Neuro grossly intact Psych/Mental Status: Normal Affect, Appropriate This note was generated with [employer] dictation software. It may contain incorrect words, spelling, and punctuation that were not noted in checking the note before signing. - Physical Exam Vital Signs Temp Pulse Resp BP Pulse Ox 98.9 F 81 14 154/100 H 99 09/10/18 20:48 09/10/18 20:58 09/10/18 20:48 09/10/18 20:48 09/10/18 20:48 Oxygen Flow Rate (L/min) 1 Oxygen Delivery Method Room Air Weight: 118 lb 6.212 oz Body Mass Index (BMI) 21.9 Microbiology Past 72 Hours 09/06/18 08:30 Blood Culture - Final Blood Culture (Wb) - Dialysis/Fistula Staphylococcus aureus Discharge Activity: Return to Normal Activity Home Medications: Medications to take at Discharge Benzonatate [Tessalon Perle] 100 mg PO TID PRN PRN 07/28/13 Sevelamer Carbonate [Renvela] 1,600 mg PO TID 07/28/13 acetaminophen 325 mg capsule 650 mg PO Q6H PRN 02/26/18 adapalene 0.3 % topical gel 1 applic TOPICAL QPM 02/26/18 albuterol sulfate HFA 90 mcg/actuation aerosol inhaler 1 puff INHALATION Q6H PRN 02/26/18 nifedipine ER 60 mg tablet,extended release 120 mg PO DAILY #180 tab 04/11/18 Amox/Clavulanate Tablet [Augmentin Tablet] 500 mg PO DAILY #7 tablet 09/04/18 Folic Acid/Vit B Complex and C [Renal Vitamin Tablet] 1 tab PO DAILY 09/04/18 Guaifenesin [Mucinex] 600 mg PO DAILY PRN 09/04/18 Metoprolol Tartrate [Lopressor (beta yenny)] 50 mg PO BID 09/04/18 Nepro Liquid [Nepro Carb Steady] 120 ml PO 4X/DAY #100 liquid 09/04/18 Pantoprazole Sodium 40 mg PO DAILY 09/04/18 Following Prescrptions Were Given to Patient: Amox/Clavulanate Tablet [Augmentin Tablet] 500 mg PO DAILY #7 tablet Nepro Liquid [Nepro Carb Steady] 120 ml PO 4X/DAY #100 liquid Primary Care Physician: Magdiel Jose DO [Primary Care Provider] - Please follow up with your Primary Care Physician in: within 1-2 weeks of discharge Please Follow Up With: Ashley Gross MD When: as scheduled for dialysis Disposition: [facility] Minutes spent on discharge:: 40 Medical Necessity - Tobacco Use Smoking Status: Former smoker Tobacco Use: Non-smoker Meaningful Use Info Meaningful Use Diagnoses (Choose all that apply): None applicable Code Visit Inpatient E&M: 62148 Disch Hosp
--- NOTE | 2018-09-14 20:29 | DS.PCM_ITS ---
Discharge Date and Diagnosis Date of Admission: 09/04/18 Date of Discharge: 09/10/18 - Primary Discharge Diagnosis Severe sepsis secondary to community acquired pneumonia (Acute) likely secondary to MSSA MSSA bacteremia in 2 of 2 blood cultures drawn on 09/04/2018. ESRD (end stage renal disease) on dialysis (Acute) abscess distal end of the AV fistula in the RUE bleeding complication post I&D abscess on 09/09/[address] Rivers Small loculated left pleural effusion Hypokalemia Thrombocytopenia Acute hypoxemic respiratory insufficiency secondary to MSSA pneumonia Hypophosphatemia - Secondary Discharge Diagnosis Chronic Problems (Last Reviewed 09/04/18 @ 05:01 by Gio Aponte MD) CKD (chronic kidney disease), stage V (Chronic) Pulmonary fibrosis (Chronic) Systemic sclerosis (Chronic) Renal failure (Chronic) Raynaud disease (Chronic) Anemia (Chronic) Systemic sclerosis (Chronic) Osteoarthritis (Chronic) Hypokalemia (Chronic) HTN (hypertension) (Chronic) Generalized edema (Chronic) CKD (chronic kidney disease), stage V (Chronic) Anemia (Chronic) Alcohol abuse (Chronic) Acute renal failure syndrome (Chronic) Hospital Course and Treatment Imaging Results: Clinical Impression(s) from Imaging Studies Chest X-Ray 09/05/18 11:24 IMPRESSION: Left lower lobe infiltration and small left pleural effusion. Electronically Signed: Wilton Walker, at 11:53 EST , Service support , Chest CT 09/05/18 15:58 IMPRESSION: Atelectasis and/or infiltrate in the left lower lobe. Cannot exclude neoplasm. Small probably loculated effusion in the posterior lower left hemithorax. Nodules in the right and left apices as described, recommend follow-up in 4-6 months. Suspicious upper mediastinal adenopathy. Ectasia of the ascending aorta. Electronically Signed: Peyman Crum MD at 20:41 EST , Service support , Chest Ultrasound 09/08/18 14:18 IMPRESSION: Small left pleural effusion with septations. Electronically Signed: Wilton Walker, at 15:54 EDT , Service support , Microbiology 09/06/18 08:30 Blood Culture (Wb) - Dialysis/Fistula Blood Culture - Final Staphylococcus aureus 09/09/18 10:23 Wound Abcess - Other Gram Stain - Final 09/09/18 10:23 Wound Abcess - Other Wound Culture - Final Staphylococcus aureus 09/09/18 10:23 Wound Abcess - Other Anaerobic Culture - Final No anaerobic bacteria isolated. 09/09/18 10:23 Tissue - Other Gram Stain - Final 09/09/18 10:23 Tissue - Other Wound Culture - Final Staphylococcus aureus 09/09/18 10:23 Tissue - Other Anaerobic Culture - Final No anaerobic bacteria isolated. 09/09/18 15:15 Blood Culture (Wb) - No Site/Description Given Blood Culture - Preliminary No growth in 48 hours. 09/05/18 11:37 Blood Culture (Wb) - Anticubital Right Blood Culture - Final Staphylococcus aureus 09/04/18 17:20 Blood Culture (Wb) - Anticubital Left Bacteria Detection (PCR) - Final Staphylococcus aureus 09/04/18 17:20 Blood Culture (Wb) - Anticubital Left Blood Culture - Final Staphylococcus aureus 09/04/18 17:20 Blood Culture (Wb) - Arm Left Blood Culture - Final Staphylococcus aureus 09/04/18 09:10 Sputum, Expectorated/Coughed Gram Stain - Final 09/04/18 09:10 Sputum, Expectorated/Coughed Respiratory Culture - Final Staphylococcus aureus 09/05/18 02:00 Stool C. difficile DNA Amplification - Final 09/04/18 09:10 Urine, Clean Catch Streptococcus pneumoniae Antigen (M - Final 09/04/18 09:10 Urine, Clean Catch Legionella Antigen - Final 09/04/18 05:05 Mucosa - Nasopharyngeal Influenza Types A,B Direct FA (SAKINA) - Final Dr. Wayne Salguero-infectious disease Dr. Wayne Rivers-general surgery/vascular surgery Dr. Fahad Jose-pulmonary medicine Dr. Morel-[facility] Operations: None Procedures: - - Incision and drainage of abscess distal end of right upper extremity AV fistula by Dr. Wayne Rivers on 09/09/2018 Summary of Care Provided: The patient is a 58-year-old male with a past medical history of chronic kidney disease stage V on hemodialysis, pulmonary fibrosis, systemic sclerosis, Raynaud's disease, osteoarthritis, hypertension, alcohol abuse and chronic anemi a who presented to the emergency department at [facility] with c/o chills and cough productive of green/yellow sputum. Chest x-ray showed either a small pleural effusion or consolidation in the left base. White blood cell count was 15.9 and the lactic acid was 4.8. BUN was 48 and the creatinine was 8.3. He was transferred to [facility] for tx of possible pneumonia and for HD. He is a pt of Dr. George from [facility]. He was started Zosyn and vancomycin at admission to [facility] and received azithromycin and Rocephin at [facility] emergency department. Sputum and blood cultures obtained on 09/04/18 were positive for methicillin sensitive staph aureus (2 of 2). Repeat blood culture on 09/05/2018 and 09/06/18 had no growth. Rapid influenza swab was negative. Dr. Wayne Salguero from infectious disease was consulted and he had concern for the AV fistula and heart involvement. A CT scan of the chest was ordered and showed atelectasis and/or infiltrate in the left lower lobe. There was a small probably loculated effusion in the left hemithorax. There were nodules in the right and left apices. There was suspicious upper mediastinal adenopathy. Dr. Fahad Jose from pulmonary was consulted to evaluate the pleural effusion and a thoracic ultrasound was ordered and showed a small left pleural effusion with septations. Dr. Jose did not feel this needed to be addressed at this time. [place] was recommended by Dr. Salguero but was to be done after I&D of the AV fistula abscess on 09/09/2018. He was taken to the OR by Dr. Rivers on 09/09/2018 and an incision and drainage of the abscess was undertaken. Culture of the purulent material was sent to the lab. There were 1+ white blood cells. The white blood cell count decreased from 16.7 at admission to 10.9 on the date of discharge. The left shift had resolved. Hemoglobin was stable at 9.5. Unfortunately the surgical site started bleeding after he was transferred back from surgery and despite holding pressure it continued to bleed. The patient had a shortened HD session on 09/09 due to the bleeding. Dr. Rivers was in contact with Dr. Rigo Wiggins at [facility] and he was agreeable to seeing the patient however, he was going to contact the medical intensive care unit and have him admitted to the MICU with him on consult. A bed was not available on 09/09 and the patient was not transferred until 09/10. By the time he was transferred the bleeding from the I&D site had stopped. Hemoglobin is stable at 8.2. - Physical Exam General: Alert, Oriented x3, Cooperative, No apparent distress HEENT: Atraumatic, PERRLA, EOMI, Normocephalic Oral: Moist Mucosa Neck: Supple, No JVD, No Nodes, Trachea Midline Lungs: Clear to auscultation, No rhonchi, No wheeze, No rales, Diminished, - - Not tachypneic at rest, no accessory muscle use and no conversational dyspnea Cardiovascular: Regular rate, Regular Rhythm, Normal S1, Normal S2, No rub noted, No Gallop Abdomen: Bowel Sounds Present, Soft, Non Tender, Non-Distended Extremities: No clubbing, No cyanosis, No edema, there is apressure dressing around the R upper arm to control bleeding. Skin: No rashes, No breakdown Neurological: Cranial nerves II-XII grossly intact, Neuro grossly intact Psych/Mental Status: Normal Affect, Appropriate This note was generated with [employer] dictation software. It may contain incorrect words, spelling, and punctuation that were not noted in checking the note before signing. - Physical Exam Vital Signs Temp Pulse Resp BP Pulse Ox 98.9 F 81 14 154/100 H 99 09/10/18 20:48 09/10/18 20:58 09/10/18 20:48 09/10/18 20:48 09/10/18 20:48 Oxygen Flow Rate (L/min) 1 Oxygen Delivery Method Room Air Weight: 118 lb 6.212 oz Body Mass Index (BMI) 21.9 Microbiology Past 72 Hours 09/06/18 08:30 Blood Culture - Final Blood Culture (Wb) - Dialysis/Fistula Staphylococcus aureus Discharge Activity: Return to Normal Activity Home Medications: Medications to take at Discharge Benzonatate [Tessalon Perle] 100 mg PO TID PRN PRN 07/28/13 Sevelamer Carbonate [Renvela] 1,600 mg PO TID 07/28/13 acetaminophen 325 mg capsule 650 mg PO Q6H PRN 02/26/18 adapalene 0.3 % topical gel 1 applic TOPICAL QPM 02/26/18 albuterol sulfate HFA 90 mcg/actuation aerosol inhaler 1 puff INHALATION Q6H PRN 02/26/18 nifedipine ER 60 mg tablet,extended release 120 mg PO DAILY #180 tab 04/11/18 Amox/Clavulanate Tablet [Augmentin Tablet] 500 mg PO DAILY #7 tablet 09/04/18 Folic Acid/Vit B Complex and C [Renal Vitamin Tablet] 1 tab PO DAILY 09/04/18 Guaifenesin [Mucinex] 600 mg PO DAILY PRN 09/04/18 Metoprolol Tartrate [Lopressor (beta yenny)] 50 mg PO BID 09/04/18 Nepro Liquid [Nepro Carb Steady] 120 ml PO 4X/DAY #100 liquid 09/04/18 Pantoprazole Sodium 40 mg PO DAILY 09/04/18 Following Prescrptions Were Given to Patient: Amox/Clavulanate Tablet [Augmentin Tablet] 500 mg PO DAILY #7 tablet Nepro Liquid [Nepro Carb Steady] 120 ml PO 4X/DAY #100 liquid Primary Care Physician: Magdiel Jose DO [Primary Care Provider] - Please follow up with your Primary Care Physician in: within 1-2 weeks of discharge Please Follow Up With: Ashley Gross MD When: as scheduled for dialysis Disposition: [facility] Minutes spent on discharge:: 40 Medical Necessity - Tobacco Use Smoking Status: Former smoker Tobacco Use: Non-smoker Meaningful Use Info Meaningful Use Diagnoses (Choose all that apply): None applicable Code Visit Inpatient E&M: 83216 Disch Hosp
== END 2018-09-10 20:58 | disposition short-term general hospital (02) | DRG 853 ==
PROVIDERS: Anesthesiology; Internal Medicine; Internal Medicine Nephrology; Surgery; Admitting Provider Hospitalist; Family Provider Family Medicine; PCP Family Medicine; Visit Provider Internal Medicine
PROC: 0JBD0ZZ Excision of Right Upper Arm Subcutaneous Tissue and Fascia, Open Approach (ICD-10-PCS; principal; 2018-09-09 09:25)
DX: A41.01 Sepsis due to Methicillin susceptible Staphylococcus aureus (principal); J15.211 Pneumonia due to Methicillin susceptible Staphylococcus aureus; N18.6 End stage renal disease; I12.0 Hypertensive chronic kidney disease with stage 5 chronic kidney disease or end stage renal disease; J90 Pleural effusion, not elsewhere classified; T82.7XXA Infection and inflammatory reaction due to other cardiac and vascular devices, implants and grafts, initial encounter; L02.413 Cutaneous abscess of right upper limb; L76.22 Postprocedural hemorrhage of skin and subcutaneous tissue following other procedure; R65.20 Severe sepsis without septic shock; Z99.2 Dependence on renal dialysis; E87.6 Hypokalemia; D69.6 Thrombocytopenia, unspecified; E83.39 Other disorders of phosphorus metabolism; M34.9 Systemic sclerosis, unspecified; D63.1 Anemia in chronic kidney disease; R06.89 Other abnormalities of breathing; R09.02 Hypoxemia; M19.90 Unspecified osteoarthritis, unspecified site; F10.10 Alcohol abuse, uncomplicated; I73.00 Raynaud's syndrome without gangrene; J84.10 Pulmonary fibrosis, unspecified; Z87.891 Personal history of nicotine dependence
CPT/HCPCS: 36415; 71045; 71250; 76604; 80048; 80069; 80076; 80320; 83605; 84100; 85014; 85018; 85025; 85610; 85730; 86850; 86900; 86920; 86922; 87040; 87070; 87075; 87077; 87149; 87186; 87205; 87449; 87493; 87804; 90937; 93005; 93306; 93990; 94640; 94668; 97110; 97162; 97166; 97530; 97802; 97803; J7030; J7040; J7050; A4216; G0257; G0480; J2405

== ENCOUNTER 2018-09-26 15:15 | Emergency (ER) | payer MEDICARE, OTHER, SELFPAY ==
[2018-09-09 08:54] VITALS: BMI 21.9
[2018-09-26 15:17] VITALS: BP 176/146; PULSE 63; RESP 16; TEMP 36.6; O2SAT 99; BMI 21.7
[2018-09-26 17:03] VITALS: BP 204/93; PULSE 67; RESP 15; TEMP 36.9; O2SAT 99
--- NOTE | 2018-09-26 17:05 | ED.DCSUM_ITS ---
- ER Visit Summary Date of Service: 09/26/18 Chief Complaint: Left arm PICC line not flowing History of Present Illness: The patient is a 58 M 3 of end-stage renal disease dialysis, anemia, recent infected right arm fistula which was removed. And recently placed peritoneal dialysis catheter. Patient presents today due to his PICC line in his left arm which he is getting IV antibiotics for for an infected right AV fistula which was removed is not flowing today. He went to or who ER they told him it was not put in there and that he should follow-up with the hospital where it was placed. He did have peritoneal dialysis in the last 24 hours. And he presents here today to have his left PICC line be assessed. Physical Examination: Middle-aged male. No acute distress. Vital signs are stable. He is afebrile. HEENT exam unremarkable. Neck nontender. Lungs clear to auscultation bilaterally. Heart regular rhythm no murmur rate about 60. Abdomen is soft and nontender. Left sided peritoneal dialysis catheter in place. Patient is moving all 4 extremities. Neurovascular intact. He has a wound in his right arm from the removal of an infected AV fistula. He has a PICC line in his left antecubital. There is no edema. Neurologically is awake and alert with no focal deficits. Test Results: None Emergency Department Course and Treatment: RN will assess his left arm PICC line and if need be flushed it with alteplase. Worked well and now he has good flow. Treatment Plan: Follow-up as needed. Disposition: Discharge Impression: Obstructed left arm PICC line History of end-stage renal disease and dialysis This note was generated with [employer] dictation software. It may contain incorrect words, spelling, and punctuation that were not noted in review of the chart prior to signing ED Disposition - Plan for ED Patient: Referrals: Magdiel Jose DO [Primary Care Provider] -
[2018-09-26] MEDS: Alteplase 2 MG/2 ML Vial IV (17:19)
--- NOTE | 2018-09-26 18:19 | ED.DEP ---
ED Disposition - Plan for ED Patient: Disposition: Home or Assisted Living Referrals: Magdiel Jose, [Primary Care Provider] - As Needed Additional Instructions: They cleared your PICC line with medication now it is working well. Return if any problems.
[2018-09-26 18:20] VITALS: BP 203/93; PULSE 65; RESP 16; O2SAT 100
[2018-09-26 18:28] VITALS: BP 203/93; PULSE 65; RESP 16; O2SAT 100
--- NOTE | 2018-09-26 18:54 | ED.RN ---
PT PICC LINE DRAWING 20 ML WASTE POST CATH FLOW. FLUSHES EASILY. PT DENIES PAIN. PT EDUCATED TO TAKE HIS BP MEDICATIONS ON RETURN HOME. PT VERBALIZES UNDERSTANDING. PT DOES PD AT NIGHT WHICH HE IS DUE FOR.
== END 2018-09-26 18:30 | disposition home or self-care (01) ==
PROVIDERS: Emergency Provider Emergency Medicine; Family Provider Family Medicine; PCP Family Medicine
DX: T82.898A Other specified complication of vascular prosthetic devices, implants and grafts, initial encounter (principal); I12.0 Hypertensive chronic kidney disease with stage 5 chronic kidney disease or end stage renal disease; N18.6 End stage renal disease; D63.1 Anemia in chronic kidney disease; Z99.2 Dependence on renal dialysis
CPT/HCPCS: 96374; 99282; J2997

== ENCOUNTER 2018-10-25 17:13 | Emergency (ER) | payer MEDICARE, OTHER, SELFPAY ==
[2018-10-25 17:14] VITALS: BP 133/98; PULSE 76; RESP 16; TEMP 36.4; O2SAT 97; BMI 21.4
--- NOTE | 2018-10-25 17:23 | RAD_ITS ---
STUDY: X-RAY - RIGHT HAND, ATTENTION FIFTH FINGER REASON FOR EXAM: Male, 58 years old. Fall. Injury to fifth digit. Pain TECHNIQUE: 3 view(s) of the finger were obtained. COMPARISON: None. FINDINGS: Normal metacarpal head. Normal metacarpophalangeal joint. Normal proximal phalanx. Normal middle phalanx. Normal distal phalanx. Normal proximal interphalangeal joint. Normal distal interphalangeal joint. RAD/Finger(s) Min 2 Views IMPRESSION: No acute abnormality. Electronically Signed: Sarbjit Flores MD at 17:59 EDT , Service support ,
--- NOTE | 2018-10-25 17:25 | RAD_ITS ---
STUDY: X-RAY - LEFT ANKLE REASON FOR EXAM: Male, 58 years old. Left ankle pain after fall. TECHNIQUE: 3 view(s) of the ankle. COMPARISON: None. FINDINGS: There is generalized osteopenia. Normal visualized distal tibia and fibula. Normal medial and lateral malleoli. Normal tibiotalar articulation and ankle mortise. There is a comminuted minimally displaced fracture of the calcaneus extending into the subtalar joint. Normal visualized talus and calcaneus. The visualized subtalar, talonavicular, calcaneocuboid and tarsal articulations are normal. The soft tissue structures are unremarkable. RAD/Ankle min 3 Views IMPRESSION: Osteopenia with calcaneal fracture as described. Electronically Signed: Sarbjit Flores MD at 17:57 EDT , Service support ,
--- NOTE | 2018-10-25 17:28 | ED.VISSUMM ---
- ER Visit Summary Date of Service: 10/25/18 Chief Complaint: Left ankle injury History of Present Illness: The patient is a 58 M who states he was going downstairs slipped and fell on his way down he struck his right middle finger. He notes pain there. He also twisted his left ankle he also notes pain. This happened about 1.5 hours before arrival. No other injuries noted. Physical Examination: Afebrile vital signs stable Gen: Well-nourished well-developed Head: Normocephalic atraumatic Eyes: Perrl EOMI ENT: TMs clear no rhinorrhea moist mucous membranes Neck: Supple no lymphadenopathy no JVD nontender CVS: Regular rate rhythm no murmurs normal S1-S2 Respiratory: No distress clear to auscultation bilaterally chest nontender Abdomen: Soft nontender nondistended normal bowel sounds no masses Back: Nontender Extremity: Mild tenderness to palpation over the distal right middle finger. No obvious deformity. Neurovascular intact. The left ankle is mildly swollen. Tender to palpation. No fifth metatarsal pain. No fibular head pain. There are no breaks in the skin. Skin: Normal color no rash Neuro: alert orientated ?3 CN II-XII intact normal strength sensation reflexes gait cerebellar Psych: Normal affect normal mood Test Results: X-rays of the little finger on the right and left ankle were obtained. These demonstrated a nondisplaced comminuted fracture of the calcaneus. Emergency Department Course and Treatment: I spoke with Dr. Kc from podiatry. He will be placed in a well-padded posterior and stirrup splint. He will be nonweightbearing. He needs to be have crutches. I will write for some pain medication and he will follow-up in the office. Patient states he is never used crutches before. He does not want us to teach him how to use crutches because he does not understand. He then states he does not know how he is going to be able to ambulate. He was informed that that is why we wish to teach him how to use crutches which she again declines. Impression: 1. Fall 2. Left calcaneus fracture (closed) 3. Slip by physician 4. Right fifth finger contusion This note was generated with [employer] dictation software. It may contain incorrect words, spelling, and punctuation that were not noted in review of the chart prior to signing ED Disposition - Plan for ED Patient: Disposition: Home or Assisted Living Instructions: ED Fx Foot Prescriptions: Hydrocodone Bitart/Apap 5-325 [[place] 5MG-325MG] 1 tab PO Q6H PRN PRN 3 Days #12 tab PRN Reason: Pain Referrals: Tu Kc DPM [STAFF PHYSICIAN] - As soon as possible Additional Instructions: Do not walk on your left foot/leg
[2018-10-25] MEDS: HYDROcodone Bitartrate/Apap 5/325 Tablet PO (19:21)
[2018-10-25 19:30] VITALS: BP 132/87; PULSE 78; RESP 16; O2SAT 98
== END 2018-10-25 19:31 | disposition home or self-care (01) ==
PROVIDERS: Emergency Provider Emergency Medicine; Family Provider Family Medicine; PCP Family Medicine
DX: S92.002A Unspecified fracture of left calcaneus, initial encounter for closed fracture (principal); S60.051A Contusion of right little finger without damage to nail, initial encounter; W10.9XXA Fall (on) (from) unspecified stairs and steps, initial encounter; Y93.9 Activity, unspecified; Y92.9 Unspecified place or not applicable; I12.0 Hypertensive chronic kidney disease with stage 5 chronic kidney disease or end stage renal disease; N18.6 End stage renal disease; D63.1 Anemia in chronic kidney disease; Z79.899 Other long term (current) drug therapy
CPT/HCPCS: 29515; 73140; 73610; 99284

== ENCOUNTER 2019-03-25 09:30 | Outpatient (RCR) | payer MEDICARE, OTHER, SELFPAY ==
[2019-01-28 08:29] VITALS: BMI 21.4
--- NOTE | 2019-02-10 16:23 | HP.PTEVAL ---
Patient's Visit Information CINTHYA AUGUSTINE is a 58 year old M referred to Physical Therapy by Tu Kc DPM with a diagnosis of Left Calcaneal Fracture. Date of Evaluation: 02/10/19 Physical Therapist: Kerri Arias DPT - Visit Plan Frequency: 1x/Week Duration: 4 Weeks Plan: Focus on HEP of LE strength/stabilization- pt was in a cast/boot for long periods of time and his gait pattern is antalgic. 02/10 HEP given: SLS, HR/TR, Gastroc Stretching - Subjective Findings: Fell off a ladder October 25- broke his left heel- Was non-weight bearing and then progressed to a boot. Has been weaning in/out of the boot- Is in the shoe a couple of hours at time. It feels okay. Pain is located along the heel. Worst: 3/10 Best: 1/10 Agg: walking on it or standing Eases: sitting. Decribes the pain as sharp. No radiating pain but does report some numbness along his toes. Does report no surgery was needed. Has not done any exericse but normally walks a little bit. Does not work. Does not stop him from sleeping. PMHx/ Meds: see list scanned in chart- no changes from when he saw PCP. - Objective Posture: FH, RS- can correct with verbal cues. Gait: antalgic- good heel/toe pattern but patient has decreased stance on the left LE with mild hip drop. HR/TR: able with mild discomfort in heel. SLS: unable to SLS but does weight shift with UE on wall for support. Palpation: tender along calcaneus. Girth: Figure 8: 51.5 cm, Mall: 26 cm Mets: 22 cm. ROM: WFL in all planes. Strength: Ankle: 4+/5 no pain, Knee: 4/5, Hip:4-/5, Core: poor - Goals Goal 1:: Patient will be I with HEP and progression Goal Time Frame: 4-6 Weeks Goal 2:: Patient will ambulate >300 feet with a normalized gait pattern Goal Time Frame: 4-6 Weeks Goal 3:: Patinet will report 0/10 pain with ADL's. Goal Time Frame: 4-6 Weeks - Rehabilitation Potential Physical Therapy Diagnosis: Patient presents s/p calcaneal fracture from fall- he has decreased strength and muscular endurance leading to an abnormal gait pattern. Rehabilitation Potential: Good - Anticipated Interventions Patient/Client Instruction: Educate patient on: Benefits of Fitness Program Therapeutic Exercise to Include: Strength training, Endurance training, Balance training, Body mechanics, Postural training, Flexibilty training, Gait and locomotor training Thank you for the opportunity to evaluate your patient. For Medicare and Medicare HMO plans, please review the plan of care and approve it. It will need to be FAXED BACK to us at [phone] for Medicare purposes. For Medicare only, by signing this I certify the plan of care. Please let me know if there are questions or concerns regarding this plan of care. Physician Signature: Date:
--- NOTE | 2019-06-16 11:56 | HP.PT.NRP ---
HP - Discharge Summary (1) - Patient Information CINTHYA AUGUSTINE was seen in my office for initial evaluation on 02/10/19. The following Plan of Care was established for this patient: Initial Frequency: 1x/Week Initial Duration: 4 Weeks - Anticipated Interventions Patient/Client Instruction: Educate patient on: Benefits of Fitness Program Therapeutic Exercise to Include: Strength training, Endurance training, Balance training, Body mechanics, Postural training, Flexibilty training, Gait and locomotor training This patient was last seen in our office . Pertinent comments regarding their Physical therapy will appear below: Patient has not attended physical therapy in over 4 weeks- appropriate for d/c and return to MD as appropriate. At this point I will be discontinuing this patient from physical therapy. I would be happy to see this patient again in the future if found appropriate by the physician. Thank you! DARRYL DunawayT
== END 2019-03-25 19:00 | disposition home or self-care (01) ==
LOC: PT 09:30
PROVIDERS: Family Provider Family Medicine; PCP Family Medicine; Referring Provider Podiatrist; Visit Provider Podiatrist
DX: S92.06 Intraarticular fracture of calcaneus (principal); M79.672 Pain in left foot
CPT/HCPCS: 97110; 97161

== ENCOUNTER 2019-07-02 22:34 | Emergency (ER) | payer MEDICARE, OTHER, SELFPAY ==
[2019-01-28 08:29] VITALS: BMI 21.4
[2019-07-02 22:35] VITALS: BP 167/98; PULSE 62; RESP 18; TEMP 36.7; O2SAT 100; BMI 24.1
[2019-07-02 22:49] VITALS: BP 160/96; PULSE 60; RESP 23; O2SAT 100
--- NOTE | 2019-07-02 23:12 | EKG12_ITS ---
Test Reason : CP Blood Pressure : / mmHG Vent. Rate : 064 BPM Atrial Rate : 064 BPM P-R Int : 144 ms QRS Dur : 082 ms QT Int : 404 ms P-R-T Axes : 026 -12 003 degrees QTc Int : 416 ms Normal sinus rhythm Possible Left atrial enlargement Left ventricular hypertrophy Abnormal ECG Confirmed by LEI SAMPSON, ALDA ([id number]), film editor supervisor DIA MARTELL ([id number]) on 07/06/2019 12:43:17 PM Referred By: DUNIA Confirmed By:ALDA ODOM MD
--- NOTE | 2019-07-02 23:14 | ED.DCSUM_ITS ---
History of Present Illness Chief Complaint: Chest Pain Informant: Patient Narrative: She stated approximately 5 hours ago he has substernal chest burning. He denies any pressure or sharp component. No home treatment. Denies shortness of breath nausea vomiting or diaphoresis. Denies any pulmonary embolism risk factors other than a renal transplant approximately 70 days ago. He stated he is on medication postoperative for this. He denies any history of coronary artery disease. He is never had a heart attack. He does not think he has had a recent stress test. No previous heart cath. Severity is mild. It has been mostly continuous tonight with occasional time periods where he has had no discomfort. He had this last week as well and then it went away on its own. - Past Medical History (1) Bacteremia Status: Acute (2) Community acquired pneumonia Status: Acute (3) ESRD (end stage renal disease) on dialysis Status: Acute (4) Problem with dialysis access Status: Acute (5) Acute renal failure syndrome Status: Chronic (6) Alcohol abuse Status: Chronic (7) Anemia Status: Chronic (8) Anemia Status: Chronic (9) CKD (chronic kidney disease), stage V Status: Chronic (10) CKD (chronic kidney disease), stage V Status: Chronic (11) Generalized edema Status: Chronic (12) HTN (hypertension) Status: Chronic (13) Hypokalemia Status: Chronic (14) Osteoarthritis Status: Chronic (15) Pulmonary fibrosis Status: Chronic (16) Raynaud disease Status: Chronic (17) Renal failure Status: Chronic (18) Systemic sclerosis Status: Chronic (19) Systemic sclerosis Status: Chronic Past Medical History - Allergies and Home Meds Allergies/Adverse Reactions: Allergies aspirin Allergy (Verified 07/02/19 22:40) Itching lisinopril Allergy (Verified 07/02/19 22:40) Itching valsartan Allergy (Verified 07/02/19 22:40) Itching Primary Care Physician: Magdiel Jose DO [Primary Care Provider] - Prior records reviewed: Yes Past Medical History: - - See problem list Surgical History: - - , Renal transplant Lives: With Family Smoking Status: Former smoker Alcohol: None Drugs: None - Family History Maternal Family History: Reports: - - He denies any paternal or maternal medical history except that he reported that 2 of his brothers had kidney stones. Paternal Family History: Reports: - - He denies any paternal or maternal medical history except that he reported that 2 of his brothers had kidney stones. Review of Systems General: Denies: Chills, Fever, Sweats Eyes: Denies: Visual changes - bilaterally, Diplopia ENT: Denies: Rhinorrhea, Sore throat Cardiovascular: Reports: Chest pain. Denies: Palpitations Respiratory: Denies: Dyspnea, Cough, Dyspnea on exertion Gastrointestinal: Denies: Abdominal pain, Nausea, Vomiting, Diarrhea, Melena, Hematochezia Genitourinary: Denies: Dysuria, Hematuria, Frequency Musculoskeletal: Denies: Back pain, Extremity Pain Skin: Denies: Rash, Wounds Neurological: Denies: Headache, Weakness, Numbness Physical Exam Vital Signs/Narrative: Vital Signs Temp Pulse Resp BP Pulse Ox 07/02/19 22:49 60 23 H 160/96 H 100 07/02/19 22:35 98.1 F 62 18 167/98 H 100 General: Well nourished, Well developed, No Acute Distress Head: Normocephalic, Atraumatic Eyes: Perrl, EOMI ENT: Moist mucous membranes, No rhinorrhea Neck: Supple, Nontender Cardiovascular: Regular rate, Regular rhythm, No murmurs Respiratory: No distress, CTA bilaterally, Chest nontender Abdomen: Soft, Nontender, Nondistended, Normal bowel sounds, - - No transplant site shows no pain or swelling or abnormality Back: Nontender, Normal Inspection Extremities: Nontender, No edema Skin: Normal color, No rash Neurological: Alert, Oriented x3, Cranial nerves II-XII grossly intact, Normal Strength, Normal Sensation Psychological: Normal affect, Normal Mood Diagnostic/Tx/Re-eval Impressions Chest X-Ray 07/02/19 23:45 IMPRESSION: Cardiomegaly and small pleural effusions. Electronically Signed: Radha Bach MD at 0:40 EST , Service support , 07/02/19 23:45 Chest PA and Lateral [RAD] Stat Laboratory Results 07/02/19 07/02/19 22:38 22:38 WBC 16.0 H RBC 3.59 L Hgb 10.4 L Hct 33.5 L MCV 93.3 MCH 29.0 MCHC 31.0 L RDW Std Deviation 50.0 H RDW Coeff of Umm 14.6 Plt Count 312 MPV 10.3 Immature Gran % (Auto) 1.500 H Neut % (Auto) 79.9 H Lymph % (Auto) 10.5 L [place] % (Auto) 7.3 Eos % (Auto) 0.3 Baso % (Auto) 0.5 Absolute Neuts (auto) 12.8 H Absolute Lymphs (auto) 1.68 Nucleated RBC % 0 Sodium 136 Potassium 4.1 Chloride 106 Carbon Dioxide 23.0 Anion Gap 7 BUN 28 H Creatinine 1.10 Estim Creat Clear Calc 55.84 Est GFR (MDRD) Af Amer 88 Est GFR (MDRD) Non-Af 73 BUN/Creatinine Ratio 25.5 H Glucose 126 H Calcium 9.4 Total Bilirubin 0.10 L Direct Bilirubin 0.09 AST 23 ALT 50 Alkaline Phosphatase 163 H Troponin I < 0.015 Total Protein 8.2 Albumin 4.0 Globulin 4.2 Lipase 149 - Medical Decision Making EKG obtained shows sinus rhythm at a rate of 64. No acute STEMI or ischemia. Patient given a GI cocktail. Lab work and chest x-ray obtained. She stated he took his aspirin today. Chest x-ray shows mild cardiomegaly. Chronic changes. No infiltrates. Lab work shows a negative troponin. Leukocytosis of 16,000. Patient denies any cough or pneumonia symptoms. On reevaluation his burning is resolved. He is resting comfortably would like to be discharged. I did offer admission to him for further evaluation of this chest burning. This could be gastric reflux related. He stated that he was not on an acid but looking in his lab work he takes pantoprazole. He will continue this as well as Maalox he does not want to come in for stress test. He will return if he worsens in follow-up. ED Disposition - Plan for ED Patient: Disposition: Home or Assisted Living Diagnosis: Burning chest pain Instructions: CHEST PAIN, NonCardiac Referrals: Magdiel Jose DO [Primary Care Provider] -
[2019-07-02] MEDS: Mag Hydrox/Al Hydrox/Simeth 30 ML UDC PO (23:19)
[2019-07-02 23:23] LABS: Absolute Lymphocyte Count 1.68 X10^3/uL (0.83-4.51); Absolute Neutrophil Count 12.8 X10^3/uL (2.0-7.7); Basophil# 0.08 X10^3/uL; Basophil% 0.5 % (0-1); Eosinophil# 0.04 X10^3/uL; Eosinophils% 0.3 % (0-5); Hematocrit 33.5 % (40-54); Hemoglobin 10.4 g/dL (13.0-16.5); Lymphocyte # 1.68 X10^3/ul (4.0); Lymphocyte % 10.5 % (19-41); Mean Corpuscular Volume 93.3 fL (80-94); Mean Platelet Vol. 10.3 fl (6.2-12.0); Monocyte# 1.17 X10^3/uL; Monocyte% 7.3 % (0-10); NRBC Flagged by Analyzer 0 % (0-5); Neutrophil # 12.75 X10^3/uL (2.7-7.7); Neutrophil % 79.9 % (47-70); Platelet Count 312 K/mm3 (150-450); RBC Distribution Width CV 14.6 % (11.6-14.6); Red Blood Count 3.59 M/mm3 (4.6-6.2)
[2019-07-02 23:38] LABS: AST(SGOT) 23 U/L (15-37); Alanine Aminotransfer ALT/SGPT 50 U/L (16-61); Alkaline Phosphatase 163 U/L (45-117); Anion Gap 7 (5-15); BUN 28 mg/dL (7-18); BUN/Creat Ratio 25.5 RATIO (10-20); Bilirubin, Direct 0.09 mg/dL (0.00-0.30); Calcium,Total 9.4 mg/dL (8.5-10.1); Chloride 106 mmol/L (98-107); EST Glomerular Filtration Rate 73 mL/min (>60); Est Glom Filt Rate - Afr Amer 88 mL/min (>60); Estimated Creatinine Clearance 55.84 ml/min; Globulin 4.2 g/dL (2.2-4.2); Glucose 126 mg/dL (74-106); Lipase 149 U/L (73-393); Potassium 4.1 mmol/L (3.5-5.1); Protein, Total 8.2 g/dL (6.4-8.2); Sodium Level 136 mmol/L (136-145)
--- NOTE | 2019-07-02 23:45 | RAD_ITS ---
STUDY: X-RAY CHEST REASON FOR EXAM: Male, 59 years old patient with chest pain that started at 1800. TECHNIQUE: PA and lateral views of the chest. COMPARISON: Chest radiograph dated September 05, 2018. FINDINGS: Cardiac monitoring leads are present. Endovascular stent is visible in the region of the superior mediastinum. The lungs are clear and expanded. There are small bilateral pleural effusions. There is mild cardiac enlargement. Normal mediastinum and delicia. Normal visualized pulmonary arteries. There is atherosclerotic calcification of the aortic arch with tortuosity. There is demineralization of the osseous structures. Normal visualized ribs, clavicles, and shoulders. There is no demonstrated abnormality of the visualized soft tissue structures of the upper abdomen. RAD/Chest PA and Lateral IMPRESSION: Cardiomegaly and small pleural effusions. Electronically Signed: Radha Bach MD at 0:40 EST , Service support ,
[2019-07-03 00:05] VITALS: BP 156/99; PULSE 58; RESP 18; O2SAT 100
[2019-07-03 01:13] VITALS: BP 150/93; PULSE 60; RESP 17; O2SAT 100
== END 2019-07-03 01:13 | disposition home or self-care (01) ==
PROVIDERS: Emergency Provider Emergency Medicine; Family Provider Family Medicine; PCP Family Medicine
DX: R07.89 Other chest pain (principal); J90 Pleural effusion, not elsewhere classified; I51.7 Cardiomegaly; I12.0 Hypertensive chronic kidney disease with stage 5 chronic kidney disease or end stage renal disease; N18.6 End stage renal disease; Z99.2 Dependence on renal dialysis; Z94.0 Kidney transplant status; M19.90 Unspecified osteoarthritis, unspecified site; J84.10 Pulmonary fibrosis, unspecified; I73.00 Raynaud's syndrome without gangrene; M34.9 Systemic sclerosis, unspecified; Z86.2 Personal history of diseases of the blood and blood-forming organs and certain disorders involving the immune mechanism; Z87.09 Personal history of other diseases of the respiratory system; Z79.82 Long term (current) use of aspirin; Z79.899 Other long term (current) drug therapy; Z87.891 Personal history of nicotine dependence
CPT/HCPCS: 71046; 80048; 80076; 83690; 84484; 85025; 93005; 99285; A4216

== ENCOUNTER 2021-07-12 07:56 | Outpatient (CLI) | payer MEDICARE, SELFPAY ==
--- NOTE | 2021-07-12 08:06 | BD_ITS ---
STUDY: DUAL ENERGY X-RAY ABSORPTIOMETRY / DXA REASON FOR EXAM: Male, 61 years old. [employer] steroid use TECHNIQUE: Bone Mineral Density (BMD) measurements of lumbar spine and bilateral hips were obtained. COMPARISON: None. FINDINGS: Lumbar Spine (L1-L4): g/cm2 (0.748) / T-score (-3.1) / Z-score (-2.5) Findings are suggestive of osteoporosis with a high fracture risk. Left Femur Total: g/cm2 (0.685) / T-score (-2.3) / Z-score (-1.8) Left Femoral Neck: g/cm2 (0.518) / T-score (-3.0) / Z-score (-2.1) Right Femur Total: g/cm2 (0.718) / T-score (-2.1) / Z-score (-1.6) Right Femoral Neck: g/cm2 (0.512) / T-score (-3.1) / Z-score (-2.1) BD/Dexa Bone Density Study IMPRESSION: The patient is considered osteoporotic as outlined below according to World [employer] Organization (WHO) criteria with a high fracture risk. Reference Information: The T-score is the number of standard deviations above or below the standard which is normal for young adults at their peak bone mineral density. The World Health Organization (WHO) interprets the T-scores as follows: Above -1 Normal bone density Between -1 and -2.5 Osteopenia Equal to / or below -2.5 Osteoporosis As a practical clinical guideline, osteopenia may be graded as follows: Mild -1 through -1.5 Moderate -1.6 through -2.0 Severe -2.1 through -2.4 The Z-score is the number of standard deviations above or below age-matched controls. A Z-score of less than -1.5 would be considered abnormal. References: 1. NIH Osteoporosis and Related Bone Diseases www osteo.org 2. International Society for Clinical Densitometry www iscd.org 3. National Osteoporosis Foundation www nof.org Electronically Signed: Wilton Walker MD at 9:24 EST , Service support ,
== END 2021-07-12 23:59 | disposition short-term general hospital (02) ==
LOC: OPBD 07:58
PROVIDERS: PCP Family Medicine; Referring Provider Family Medicine; Visit Provider Family Medicine
DX: M81.0 Age-related osteoporosis without current pathological fracture (principal); M79.606 Pain in leg, unspecified; Z79.52 Long term (current) use of systemic steroids
CPT/HCPCS: 77080

== ENCOUNTER 2022-05-21 14:05 | Outpatient (CLI) | payer MEDICARE, BC, SELFPAY ==
[2022-05-21 15:31] LABS: Vitamin D,25 Hydroxy 57.4 ng/mL
[2022-05-21 15:40] LABS: ALB/GLOB Ratio 0.9 RATIO (0.9-2.4); AST(SGOT) 23 U/L (15-37); Alanine Aminotransfer ALT/SGPT 20 U/L (16-61); Albumin, Serum 3.5 g/dL (3.2-5.0); Alkaline Phosphatase 65 U/L (45-117); Anion Gap 8 (5-15); BUN 21 mg/dL (7-18); BUN/Creat Ratio 16.3 RATIO (10-20); Calcium,Total 9.4 mg/dL (8.5-10.1); Chloride 104 mmol/L (98-107); Creatinine, Serum 1.29 mg/dL (0.70-1.30); EST Glomerular Filtration Rate 60 mL/min (>60); Est Glom Filt Rate - Afr Amer 73 mL/min (>60); Globulin 3.9 g/dL (2.2-4.2); Glucose 127 mg/dL (74-106); Protein, Total 7.4 g/dL (6.4-8.2); Sodium Level 136 mmol/L (136-145)
== END 2022-05-21 23:59 | disposition home or self-care (01) ==
PROVIDERS: PCP Family Medicine; Visit Provider Family Medicine
DX: Z94.0 Kidney transplant status (principal)
CPT/HCPCS: 36415; 80053; 82306